=== PATIENT | male | born 1955 | race Caucasian/White ===

== ENCOUNTER 2017-08-30 08:00 | Day surgery (SDC) | payer BC, OTHER ==
[2017-08-25 23:22] VITALS: BMI 36.1
[~2017-08-30 08:00] MED LIST: ALPRAZolam 0.25 MG TAB PO PRN; ASPIRIN 325 MG TAB PO ONE; SODIUM CHLORIDE 0.9% 1,000 ML in EMPTY BAG 1 BAG IV ONE
[2017-08-30 08:27] VITALS: TEMP 97.8
[2017-08-30] MEDS ORDERED: diphenhydrAMINE 50 MG/ML 1 ML VIAL IVP ONE (09:03)
[2017-08-30] MEDS ORDERED: MIDAZOLAM 2 MG/2 ML VIAL IV ONE (09:05)
[2017-08-30] MEDS ORDERED: LIDOCAINE 2% INJ 20 MG/ML SQ ONE ×2 (09:07)
[2017-08-30] MEDS ORDERED: fentaNYL (PF) 50 MCG/ML 2 ML AMP IV ONE (09:09)
[2017-08-30] MEDS ORDERED: IOHEXOL 350 MG/ML 125ML BOTTLE INJ ONE (09:24)
[2017-08-30] MEDS ORDERED: RX INFO: IV CONTRAST WAS GIVEN 1 EACH MISC MISCELLANE PRN (09:32)
[2017-08-30] MEDS ORDERED: SODIUM CHLORIDE 0.9% 1,000 ML IV SCH (09:45)
[2017-08-30 12:41] VITALS: BP 130/70; PULSE 64; RESP 18
--- NOTE | 2017-08-30 14:31 | CC ---
CARDIAC CATHETERIZATION REPORT DATE OF SERVICE: 08/30/2017. INDICATION: Exertional shortness of breath with new onset ischemic cardiomyopathy. PROCEDURE NOTE: After obtaining informed consent, left heart catheterization and coronary angiogram were performed via the right femoral artery using standard [place] catheters. The patient tolerated the procedure well without any obvious immediate complications. SEDATION: Patient received moderate conscious sedation. Total sedation time was 18 minutes. Patient underwent a femoral angiogram and Angio-Seal was deployed for hemostasis. FINDINGS: HEMODYNAMICS: Left ventricular central aortic pressure is normal at 130/78. AORTOGRAM: 1. Aortogram was performed to evaluate the prosthetic valve. Ascending aorta appears aneurysmally dilated without any evidence of aortic regurgitation or prosthetic valve dysfunction. ANGIOGRAPHIC DATA: 1. Left main coronary artery: Left main coronary artery is a normal-sized vessel and is free of stenosis. Divides into left anterior descending coronary artery and circumflex coronary artery. 2. LAD and its branches, circumflex coronary artery and its branches are free of significant stenosis. 3. Right coronary artery is a large dominant vessel and is free of significant disease. CONCLUSIONS: 1. Normal coronary arteries. 2. Normally functioning prosthetic valve. 3. Mild ascending aortic aneurysm. PLAN: The patient's management is going to be with medical therapy. The patient's shortness of breath is probably noncardiac in origin. I reviewed angiographic data with the patient. MMODL / IJN: [id number] /
== END 2017-08-30 14:30 | disposition home or self-care (01) ==
LOC: CATHCVL 08:00
PROVIDERS: ATTEND Internal Medicine Cardiovascular Disease
DX: I71.2 Thoracic aortic aneurysm, without rupture (principal); R06.02 Shortness of breath; I11.9 Hypertensive heart disease without heart failure; I25.5 Ischemic cardiomyopathy; I44.2 Atrioventricular block, complete; Z95.0 Presence of cardiac pacemaker; Z95.2 Presence of prosthetic heart valve; E78.5 Hyperlipidemia, unspecified; Z79.82 Long term (current) use of aspirin; Z79.899 Other long term (current) drug therapy
CPT/HCPCS: 93454; 93567; C1760; C1894; C1769; J2001; J2250; J1200; J3010; Q9967

== ENCOUNTER → 2017-12-20 | Outpatient (CLI) | payer OTHER ==
--- NOTE | 2017-12-20 15:40 | CT ---
EXAMINATION TYPE: CT chest w con DATE OF EXAM: 12/20/2017 COMPARISON: CTA aorta November 11, 2011 HISTORY: SOB that is worsening CT DLP: 618.8 mGycm Automated exposure control for dose reduction was used. CONTRAST: CT scan of the chest is performed with IV Contrast, patient injected with 100 mL of Isovue 300. FINDINGS: LUNGS: There is moderate emphysematous change with blebs and bulla in the apices as well as left apic al scarring all redemonstrated. No suspicious new consolidation or groundglass opacity is seen. No mc spicious new parenchymal nodule or mass is present. No pleural effusion or pneumothorax is identified bilaterally. MEDIASTINUM: There are no greater than 1 cm hilar or mediastinal lymph nodes. No cardiomegaly or pe ricardial effusion is seen. There is dual lead pacemaker now identified. No overlying sternal wires are present. Ascending aorta measures up to 4.0 cm in diameter not significantly changed from prior. OTHER: Visualized liver is low dense consistent with fatty infiltration. There is mild multilevel sp urring in the spine. Bilateral gynecomastia is redemonstrated. IMPRESSION: Moderate emphysematous change without acute pulmonary process. Stable 4.0 cm mild aneury sm of ascending aorta.
== END | disposition home or self-care (01) ==
LOC: RADCTMAIN 14:57
PROVIDERS: ATTEND Internal Medicine
DX: J43.9 Emphysema, unspecified (principal); I71.2 Thoracic aortic aneurysm, without rupture
CPT/HCPCS: 71260; Q9967

== ENCOUNTER 2019-04-18 12:26 | Emergency (ER) | payer OTHER ==
[2019-04-18] MEDS ORDERED: methylPREDNISolone SOD SUCCI 125 MG/2 ML VIAL IV STA (12:39)
[2019-04-18] MEDS ORDERED: FAMOTIDINE 20 MG/2 ML VIAL IV STA (12:40)
[2019-04-18 12:42] VITALS: TEMP 97.4
--- NOTE | 2019-04-18 12:48 | ED ---
General Adult HPI - General Stated complaint: Allergic reaction Time Seen by Provider: 04/18/19 12:26 Source: RN notes reviewed - History of Present Illness Initial comments: This is a 63-year-old male who presents to the emergency department stating that about an hour ago he got stung by a bee and he started having some difficulty breathing and became flushed and felt lightheaded. Patient states he believes he also was hyperventilating at that time. When EMS arrived they stated that the patient was flushed and they gave him albuterol and Atrovent as well as 50 of Benadryl and the symptoms have improved. Patient states she still mildly short of breath. Patient denies any chest pain or palpitations. Patient states she's never had a reaction to a bee sting in the past - Related Data Home Medications Medication Instructions Recorded Confirmed Aspirin 81 mg PO DAILY 12/29/13 04/18/19 amLODIPine BESYLATE [Norvasc] 10 mg PO DAILY 12/29/13 04/18/19 Lisinopril [Zestril] 20 mg PO DAILY 08/25/17 04/18/19 cloNIDine HCL [Catapres] 0.1 mg PO DAILY 08/25/17 04/18/19 Previous Rx's Medication Instructions Recorded EPINEPHrine (Auto Inject) [Epipen] 0.3 mg IM ONCE PRN #2 syringe 04/18/19 predniSONE 40 mg PO DAILY #8 tab 04/18/19 Allergies Allergy/AdvReac Type Severity Reaction Status Date / Time No Known Allergies Allergy Verified 04/18/19 12:49 Review of Systems ROS Statement: Those systems with pertinent positive or pertinent negative responses have been documented in the HPI. ROS Other: All systems not noted in ROS Statement are negative. Past Medical History Past Medical History: Hypertension History of Any Multi-Drug Resistant Organisms: None Reported Past Surgical History: Cardiac Valve Replacement, Pacemaker Past Anesthesia/Blood Transfusion Reactions: No Reported Reaction Type of Cardiac Device: Permanent Pacemaker Device Placement Date:: 2011 Smoking Status: Former smoker - Past Family History Mother Family Medical History: No Reported History General Exam - General Exam Comments Initial Comments: GENERAL: Patient is well-developed and well-nourished. Patient is nontoxic and well- hydrated and is in moderate distress. ENT: Neck is soft and supple. No significant lymphadenopathy is noted. Oropharynx is clear. Moist mucous membranes. Neck has full range of motion without eliciting any pain. EYES: The sclera were anicteric and conjunctiva were pink and moist. Extraocular movements were intact and pupils were equal round and reactive to light. Eyelids were unremarkable. PULMONARY: Unlabored respirations. Good breath sounds bilaterally. No audible rales rhonchi or wheezing was noted. CARDIOVASCULAR: There is a regular rate and rhythm without any murmurs gallops or rubs. ABDOMEN: Soft and nontender with normal bowel sounds. No palpable organomegaly was noted. There is no palpable pulsatile mass. SKIN: She has hives on his chest arms back stomach. Patient also is very erythematous in the face. NEUROLOGIC: Patient is alert and oriented x3. Cranial nerves II through XII are grossly intact. Motor and sensory are also intact. Normal speech, volume and content. Symmetrical smile. MUSCULOSKELETAL: Normal extremities with adequate strength and full range of motion. LYMPHATICS: No significant lymphadenopathy is noted PSYCHIATRIC: Normal psychiatric evaluation. Course Vital Signs 04/18/19 04/18/19 04/18/19 12:35 12:38 13:00 Temperature 97.4 F L Pulse Rate 79 77 Respiratory 20 23 Rate Blood Pressure 103/53 103/53 O2 Sat by Pulse 94 L 96 96 Oximetry 04/18/19 04/18/19 04/18/19 13:30 14:00 14:09 Temperature Pulse Rate 72 71 71 Respiratory 11 L 17 17 Rate Blood Pressure 110/69 99/64 99/64 O2 Sat by Pulse 96 93 L 93 L Oximetry Medical Decision Making - Medical Decision Making I will back into reevaluate the patient he was asymptomatic at this time. Patient wanted to go home. I discharge the patient home with EpiPen's and steroids and he will take Benadryl when necessary Disposition Clinical Impression: Anaphylaxis Disposition: HOME SELF-CARE Condition: Good Instructions (If sedation given, give patient instructions): Anaphylaxis (ED) Prescriptions: EPINEPHrine (Auto Inject) [Epipen] 0.3 mg IM ONCE PRN #2 syringe PRN Reason: Difficulty breathing predniSONE 40 mg PO DAILY #8 tab Is patient prescribed a controlled substance at d/c from ED?: No Referrals: Kati Harrison MD [Primary Care Provider] - 1-2 days Time of Disposition: 15:54
[2019-04-18 16:09] VITALS: BP 110/74; PULSE 67; RESP 12
== END 2019-04-18 16:30 | disposition home or self-care (01) ==
LOC: EC 12:26
DX: T63.441A Toxic effect of venom of bees, accidental (unintentional), initial encounter (principal); T78.2XXA Anaphylactic shock, unspecified, initial encounter; I10 Essential (primary) hypertension; Z87.891 Personal history of nicotine dependence; Z79.82 Long term (current) use of aspirin; Z79.899 Other long term (current) drug therapy; Z95.0 Presence of cardiac pacemaker; Z95.2 Presence of prosthetic heart valve
CPT/HCPCS: 99284; 96374; 96375; J2930

== ENCOUNTER 2025-03-04 11:16 | Inpatient (IN) | payer MEDICARE, OTHER ==
[2025-03-04] MEDS: MIDAZOLAM 1 MG/ML 5 ML VIAL IV STA (11:18)
[2025-03-04] MEDS: DEXTROSE 5% IN WATER 100 ML with AMIODARONE 150 MG IV ONE ×2 (11:30→13:03)
[2025-03-04] MEDS: SODIUM CHLORIDE 0.9% 500 ML 500 ML IV STA (11:35)
[2025-03-04] MEDS: LORazepam 1 MG/0.5 ML VIAL IV STA (11:37)
[2025-03-04] MEDS: SUCCINYLCHOLINE CHLORIDE 200 MG/10 ML VIAL IV STA (11:38)
--- NOTE | 2025-03-04 11:41 | XR ---
EXAMINATION TYPE: XR chest 1V portable DATE OF EXAM: 03/04/2025 COMPARISON: NONE CLINICAL INDICATION: Male, 89 years old with history of chest pain; TECHNIQUE: Single frontal view of the chest is obtained. FINDINGS: Limited by the technique. ET tube is 5.3 cm above the karen. There has been prior CABG surgery. There is a 2-lead cardiac pacemaker. The lungs are grossly clear. There is no large pleural effusion or pneumothorax. IMPRESSION: 1. ET tube 5.3 cm above the karen. 2. No definite acute cardiopulmonary process. [facility], , 03/04/2025 11:39 AM
[2025-03-04] MEDS: SODIUM CHLORIDE 0.9% 1,000 ML IV ONE (11:48)
[2025-03-04 11:58] LABS: HCT 44.5 % (39.6-50.0); HGB 15.3 g/dL (13.0-17.0); MCH 35.9 pg (27.0-32.0); MCHC 34.4 g/dL (32.0-37.0); MCV 104.5 fL (80.0-97.0); Platelet Count 161 10*3/uL (140-440); RBC 4.26 10*6/uL (4.40-5.60); RDW 12.0 % (11.5-14.5); WBC 21.20 10*3/uL (4.50-10.00)
[2025-03-04 12:10] LABS: AST 178 U/L (17-59); African American GFR (CKD) >90 (>60 ml/min/1.73 sqM); Albumin 3.6 g/dL (3.5-5.0); Alkaline Phosphatase 125 U/L (38-126); Anion Gap 29 mmol/L; Blood Urea Nitrogen 11 mg/dL (9-20); Calcium 8.4 mg/dL (8.4-10.2); Chloride 105 mmol/L (98-107); Glucose 403 mg/dL (74-99); Magnesium 1.8 mg/dL (1.6-2.3); Non-African American GFR(CKD) 85 (>60 ml/min/1.73 sqM); Potassium 3.4 mmol/L (3.5-5.1); Sodium 142 mmol/L (137-145); Total Protein 6.4 g/dL (6.3-8.2)
[2025-03-04 12:17] LABS: ABG HCO3 13 mmol/L (21-25); ABG PCO2 38 mmHg (35-45); ABG PO2 231 mmHg (83-108); ABG TCO2 14 mmol/L (19-24); Allen Test Performed? Yes
[2025-03-04 12:18] LABS: INR 1.4 (<1.2); Prothrombin Time 14.4 sec (10.0-12.5)
--- NOTE | 2025-03-04 12:18 | CT ---
EXAMINATION TYPE: CT brain katey wo con DATE OF EXAM: 03/04/2025 COMPARISON: CT brain dated 12/29/2013 CLINICAL INDICATION: Male, 69 years old with history of Trauma; PHH, Cardiac arrest, with fall and hi t head. TECHNIQUE: CT scan of the head and cervical spine are performed without contrast. CT DLP: 2497.[address] CTDI: mGy Automated exposure control for dose reduction was used. Findings: Head CT: Ventricles, basal cisterns and sulci over convexities are mildly enlarged consistent with mild atroph y. No abnormal density is seen throughout the brain parenchyma and there is no acute intra or extra-a xial hemorrhage. Posterior fossa including the brainstem, fourth ventricle and cerebellar pontine angles are grossly n ormal. The intraorbital contents appear normal and symmetric. Visualized paranasal sinuses are well aerated. CT cervical spine: Craniovertebral junction relationships and prevertebral soft tissues are normal. The cervical vertebral segments are normal in height and alignment and there is no fracture subluxati on. Degenerative disc disease at the C3-4, C4-5, C5-6 there is mild disc space narrowing and spondylosis at the C3-C4 level. There is moderate disc space narrowing and marked spondylosis at the C3 C4-5, C5- 6 and C6-7 levels. Mild facet degeneration and degeneration of the uncovertebral joints in the mid and lower cervical sp ine. There is no bony encroachment of the cervical canal. The paraspinal soft tissues unremarkable. IMPRESSION: 1. Head CT: No acute bleed or mass effect. Mild generalized atrophy. 2. CT cervical spine: No acute trauma. Mild to moderate multilevel degenerative disc disease. [facility], , 03/04/2025 12:15 PM
--- NOTE | 2025-03-04 12:23 | CT ---
EXAMINATION TYPE: CT chest angio for PE DATE OF EXAM: 03/04/2025 COMPARISON: CT chest dated 12/20/2017 CLINICAL INDICATION: Male, 69 years old with history of Cardiac arrest; PHH, Cardiac arrest, with fal l and hit head., SOB or PAIN TECHNIQUE: Ct angiogram of the chest performed with with IV Contrast, patient injected with 100ml mL of Isovue 3 70. MIP images are created and reviewed. CT DLP: 2497.[address] CTDI: mGy Automated exposure control for dose reduction was used. FINDINGS: The exam is limited by motion. There is a 2-lead cardiac pacemaker. There is a prosthetic aortic valve. There are moderate emphysematous changes with an upper lobe predominance. There is diffuse groundglass opacity in both lungs, greatest in the upper lobes, likely pulmonary matt ma. There is consolidative opacity in the posterior lungs likely secondary to pulmonary edema or atel ectasis. There is no mediastinal, hilar or axillary adenopathy. Limited scanning through the upper abdomen reveals cholelithiasis. There are no focal osseous lesions. IMPRESSION: 1. Limited by motion artifact. 2. No definite evidence of pulmonary medicine. 3. Findings most consistent with CHF. 4. Cholelithiasis 5. Moderate emphysematous changes. [facility], , 03/04/2025 12:21 PM
[2025-03-04 12:25] LABS: ABG PH 7.14 (7.35-7.45)
[2025-03-04] MEDS: AMIODARONE 450 MG in DEXTROSE 5% IN WATER 250 ML IV SCH (12:36)
[2025-03-04 12:40] LABS: Partial Thromboplastin Time 20.6 sec (22.0-30.0)
[2025-03-04 12:42] LABS: Eosinophils # (M) 0.21 k/uL (0-0.7); Lymphocytes # (M) 8.06 k/uL (1.0-4.8); Monocytes # (M) 0.64 k/uL (0-1.0); Neutrophils # (M) 12.30 k/uL (1.3-7.7); Neutrophils % (M) 58 %; Total Cells Counted 100
[2025-03-04 12:52] LABS: ALT 73 U/L (4-49); Carbon Dioxide 8 mmol/L (22-30)
--- NOTE | 2025-03-04 12:57 | ED ---
General Adult HPI - General Chief complaint: Cardiac Arrest/CPR Stated complaint: Cardiac Arrest Time Seen by Provider: 03/04/25 11:16 Source: patient, EMS, RN notes reviewed, old records reviewed Mode of arrival: EMS - History of Present Illness Initial comments: This is a 69-year-old male who was a witnessed arrest. Patient was with EMS taking EMS to another patient who had fallen and in the process of doing that the patient collapsed they noted the patient to be in V-fib shocked him 3 different occasions gave him 3 rounds of epi gave him amiodarone and intubated the patient. Just prior to arrival they got ROSC he was down for at least 20 minutes. Patient extubated himself prior to coming into the emergency department but he was unresponsive. Patient has a cardiac history and has had bypass. No other history is available at this time. - Related Data Allergies Allergy/AdvReac Type Severity Reaction Status Date / Time bee venom protein (honey bee) Allergy Unknown Verified 03/04/25 13:00 Review of Systems ROS Statement: Those systems with pertinent positive or pertinent negative responses have been documented in the HPI. ROS Other: All systems not noted in ROS Statement are negative. Past Medical History Past Medical History: Unable to Obtain Past Surgical History: Unable to Obtain General Exam - General Exam Comments Initial Comments: GENERAL: Patient is thrashing but does look well-developed and not malnourished ENT: Neck is soft and supple. No significant lymphadenopathy is noted. Oropharynx is clear. Moist mucous membranes. Neck has full range of motion without eliciting any pain. EYES: The sclera were anicteric and conjunctiva were pink and moist. Extraocular movements were intact and pupils were equal round and reactive to light. Eyelids were unremarkable. PULMONARY: Unlabored respirations. Good breath sounds bilaterally. No audible rales rhonchi or wheezing was noted. CARDIOVASCULAR: There is a regular rate and rhythm without any murmurs gallops or rubs. ABDOMEN: Soft and nontender with normal bowel sounds. SKIN: Skin is clear with no lesions or rashes and otherwise unremarkable. NEUROLOGIC: Patient is unresponsive. MUSCULOSKELETAL: Normal extremities with adequate strength and full range of motion. PSYCHIATRIC: Unable to assess Course Vital Signs 03/04/25 03/04/25 03/04/25 11:20 11:31 11:35 Temperature 97.8 F Pulse Rate 49 L 49 L Respiratory 20 22 Rate Blood Pressure 100/60 94/58 O2 Sat by Pulse 93 L 87 L Oximetry Fraction of 100 Inspired Oxygen (FIO2) 03/04/25 03/04/25 03/04/25 11:44 11:50 12:05 Temperature Pulse Rate 50 L 49 L Respiratory 31 H 28 H Rate Blood Pressure 104/66 120/75 135/9 O2 Sat by Pulse 100 100 Oximetry Fraction of Inspired Oxygen (FIO2) 03/04/25 03/04/25 03/04/25 12:15 12:26 12:28 Temperature Pulse Rate 49 L Respiratory 27 H Rate Blood Pressure 155/81 O2 Sat by Pulse 100 Oximetry Fraction of 50 50 Inspired Oxygen (FIO2) 03/04/25 03/04/25 03/04/25 12:42 12:50 13:00 Temperature Pulse Rate 49 L 50 L 52 L Respiratory 30 H 30 H 34 H Rate Blood Pressure 106/60 137/74 130/69 O2 Sat by Pulse 95 96 96 Oximetry Fraction of Inspired Oxygen (FIO2) Procedures - [place] Protocol (Time Out) Nurse: Sofía Rodriguez - Intubation Sedative: Versed Paralytic: Succinylcholine Laryngoscope: Mcgarry Size: 4 Tube Secured Location: teeth Tube Placement Confirmation: visualized tube passing through cords, equal breath sounds bilaterally, no breath sounds over epigastrium, confirmation by capnometry Patient Tolerated Procedure: well Intubation Complications: none Medical Decision Making - Medical Decision Making EKG is interpreted by myself. EKG shows a paced rhythm at 50 bpm QRS is 205 QT interval is 481 QTc is 453 Was pt. sent in by a medical professional or institution (, LEEANNE, CLINICAL DATA PROGRAMMER, urgent care, hospital, or fdc...) When possible be specific @ -No Did you speak to anyone other than the patient for history (EMS, parent, family, police, friend...)? What history was obtained from this source @ -No Did you review nursing and triage notes (agree or disagree)? Why? @ -I reviewed and agree with nursing and triage notes Were old charts reviewed (outside hosp., previous admission, EMS record, old EKG, old radiological studies, urgent care reports/EKG's, fdc records)? Report findings @ -No old charts were reviewed Differential Diagnosis? @ -V-fib, [place], pulmonary embolism, aortic dissection, this is not an all- inclusive list EKG interpreted by me (3pts min.). @ -As above X-rays interpreted by me (1pt min.). @ -Chest x-ray shows good placement of the ET tube. CT interpreted by me (1pt min.). @ -CT of the head and neck and chest showed no acute abnormality U/S interpreted by me (1pt. min.). @ -None done What testing was considered but not performed or refused? (CT, X-rays, U/S, labs)? Why? @ -None What meds were considered but not given or refused? Why? @ -None Did you discuss the management of the patient with other professionals (pr ofessionals i.e. DrMelita, PA, CLINICAL DATA PROGRAMMER, lab, RT, psych nurse, executive secretary social welfare, geosciences professor, teacher, ski patrol officer, case manager specialist)? Give summary @ -I spoke with Dr. Mays and he accepted the patient to the ICU. I spoke with the significant hospitalist and they agreed to accept the patient. Dr. Malcolm was contacted and he came down and saw the patient and discussed the case with myself. Was smoking cessation discussed for >3mins.? @ -No Was critical care preformed (if so, how long)? @ -35 minutes Were there social determinants of health that impacted care today? How? (Homelessness, low income, unemployed, alcoholism, drug addiction, transportation, low edu. Level, literacy, decrease access to med. care, [place] [facility], rehab)? @ -No Was there de-escalation of care discussed even if they declined (Discuss DNR or withdrawal of care, Hospice)? DNR status @ -No What co-morbidities impacted this encounter? (DM, HTN, Smoking, COPD, CAD, Cancer, CVA, ARF, Chemo, Hep., AIDS, mental health diagnosis, sleep apnea, morbid obesity)? @ -None Was patient admitted / discharged? Hospital course, mention meds given and route, prescriptions, significant lab abnormalities, going to OR and other pertinent info. @ -Patient asked us bated himself just prior to arrival so I intubated the patient with an 8 oh ET tube patient had good bilateral breath sounds and capnography was good. Patient's came back acidotic with a bicarb of 8 patient also an elevated troponin. Patient had an EEG bedside ultrasound done by Dr. Malcolm and he felt that ejection fraction was between 10 to 15% patient will be admitted to the ICU to [facility] with a consult to critical care doctor and cardiology Undiagnosed new problem with uncertain prognosis? @ -No Drug Therapy requiring intensive monitoring for toxicity (Heparin, Nitro, Insulin, Cardizem)? @ -No Were any procedures done? @ -No Diagnosis/symptom? @ -Ventricular fibrillation Acute, or Chronic, or Acute on Chronic? @ -Acute Uncomplicated (without systemic symptoms) or Complicated (systemic symptoms)? @ -Complicated Side effects of treatment? @ -No Exacerbation, Progression, or Severe Exacerbation? @ -No Poses a threat to life or bodily function? How? (Chest pain, [place], [place], pneumonia, PE, COPD, DKA, ARF, appy, cholecystitis, CVA, Diverticulitis, Homicidal, Suicid al, threat to staff... and all critical care pts) @ -Yes this could lead to poor perfusion and endorgan dysfunction Diagnosis/symptom? @ -NSTEMI Acute, or Chronic, or Acute on Chronic? @ -Acute Uncomplicated (without systemic symptoms) or Complicated (systemic symptoms)? @ -Complicated Side effects of treatment? @ -None Exacerbation, Progression, or Severe Exacerbation] @ -No Poses a threat to life or bodily function? @ -Yes this can lead to an [place] poor perfusion and endorgan dysfunction - Lab Data Result diagrams: 03/04/25 11:41 03/04/25 11:41 Lab Results 03/04/25 03/04/25 03/04/25 Range/Units 11:41 11:41 11:41 WBC 21.20 H (4.50-10.00) 10*3/uL RBC 4.26 L (4.40-5.60) 10*6/uL Hgb 15.3 (13.0-17.0) g/dL Hct 44.5 (39.6-50.0) % MCV 104.5 H (80.0-97.0) fL MCH 35.9 H (27.0-32.0) pg MCHC 34.4 (32.0-37.0) g/dL Plt Count 161 (140-440) 10*3/uL MPV 10.6 (9.5-12.2) fL Immature Gran % (Auto) 2.6 % Neutrophils % (Manual) 58 % Lymphocytes % (Manual) 38 % Monocytes % (Manual) 3 % Eosinophils % (Manual) 1 % Immature Gran # 0.56 H (0.00-0.04) 10*3/uL Neutrophils # (Manual) 12.30 H (1.3-7.7) k/uL Lymphocytes # (Manual) 8.06 H (1.0-4.8) k/uL Monocytes # (Manual) 0.64 (0-1.0) k/uL Eosinophils # (Manual) 0.21 (0-0.7) k/uL Nucleated RBCs 0 (0-0) /100 WBC Manual Slide Review Performed PT 14.4 H (10.0-12.5) sec INR 1.4 H (<1.2) APTT 20.6 L (22.0-30.0) sec Sample Site ABG pH (7.35-7.45) ABG pCO2 (35-45) mmHg ABG pO2 (83-108) mmHg ABG HCO3 (21-25) mmol/L ABG Total CO2 (19-24) mmol/L ABG O2 Saturation (94-97) % ABG Base Excess mmol/L Joseph Test Hemoglobin (13.0-17.5) gm/dL FiO2 % Sodium 142 (137-145) mmol/L Potassium 3.4 L (3.5-5.1) mmol/L Chloride 105 (98-107) mmol/L Carbon Dioxide 8 L* (22-30) mmol/L Anion Gap 29 mmol/L BUN 11 (9-20) mg/dL Creatinine 0.93 (0.66-1.25) mg/dL Est GFR (CKD-EPI)AfAm >90 (>60 ml/min/1.73 sqM) Est GFR (CKD-EPI)NonAf 85 (>60 ml/min/1.73 sqM) Glucose 403 H (74-99) mg/dL Calcium 8.4 (8.4-10.2) mg/dL Magnesium 1.8 (1.6-2.3) mg/dL Total Bilirubin 1.3 (0.2-1.3) mg/dL AST 178 H (17-59) U/L ALT 73 H (4-49) U/L Alkaline Phosphatase 125 (38-126) U/L Troponin I (0.000-0.034) ng/mL Total Protein 6.4 (6.3-8.2) g/dL Albumin 3.6 (3.5-5.0) g/dL 03/04/25 03/04/25 Range/Units 11:41 12:13 WBC (4.50-10.00) 10*3/uL RBC (4.40-5.60) 10*6/uL Hgb (13.0-17.0) g/dL Hct (39.6-50.0) % MCV (80.0-97.0) fL MCH (27.0-32.0) pg MCHC (32.0-37.0) g/dL Plt Count (140-440) 10*3/uL MPV (9.5-12.2) fL Immature Gran % (Auto) % Neutrophils % (Manual) % Lymphocytes % (Manual) % Monocytes % (Manual) % Eosinophils % (Manual) % Immature Gran # (0.00-0.04) 10*3/uL Neutrophils # (Manual) (1.3-7.7) k/uL Lymphocytes # (Manual) (1.0-4.8) k/uL Monocytes # (Manual) (0-1.0) k/uL Eosinophils # (Manual) (0-0.7) k/uL Nucleated RBCs (0-0) /100 WBC Manual Slide Review PT (10.0-12.5) sec INR (<1.2) APTT (22.0-30.0) sec Sample Site RAD ABG pH 7.14 L* (7.35-7.45) ABG pCO2 38 (35-45) mmHg ABG pO2 231 H (83-108) mmHg ABG HCO3 13 L (21-25) mmol/L ABG Total CO2 14 L (19-24) mmol/L ABG O2 Saturation 99.4 H (94-97) % ABG Base Excess -15.6 mmol/L Joseph Test Yes Hemoglobin 14.5 (13.0-17.5) gm/dL FiO2 100 % Sodium (137-145) mmol/L Potassium (3.5-5.1) mmol/L Chloride (98-107) mmol/L Carbon Dioxide (22-30) mmol/L Anion Gap mmol/L BUN (9-20) mg/dL Creatinine (0.66-1.25) mg/dL Est GFR (CKD-EPI)AfAm (>60 ml/min/1.73 sqM) Est GFR (CKD-EPI)NonAf (>60 ml/min/1.73 sqM) Glucose (74-99) mg/dL Calcium (8.4-10.2) mg/dL Magnesium (1.6-2.3) mg/dL Total Bilirubin (0.2-1.3) mg/dL AST (17-59) U/L ALT (4-49) U/L Alkaline Phosphatase (38-126) U/L Troponin I 1.250 H* (0.000-0.034) ng/mL Total Protein (6.3-8.2) g/dL Albumin (3.5-5.0) g/dL Critical Care Time Critical Care Time: Yes Total Critical Care Time: 35 Disposition Clinical Impression: Ventricular fibrillation, NSTEMI (non-ST elevated myocardial infarction), Cardiac arrest Disposition: ADMITTED IP TO THIS HOSP Referrals: Kati Harrison MD [Primary Care Provider] - 1-2 days Time of Disposition: 13:14
[2025-03-04] MEDS: AMIODARONE 360 MG in DEXTROSE 5% IN WATER 200 ML IV ONE (13:03)
--- NOTE | 2025-03-04 13:05 | XR ---
EXAMINATION TYPE: XR chest 1V portable DATE OF EXAM: 03/04/2025 COMPARISON: 06/04/2025 CLINICAL INDICATION: Male, 69 years old with history of confirm OG placement; TECHNIQUE: Single frontal view of the chest is obtained. FINDINGS: There is an NG tube within the stomach. Placement of ET tube cannot be determined this technique but appears to be well above the karen. A CABG surgery. There is a 2-lead cardiac pacemaker. There is mild diffuse interstitial opacity likely indicating pulmonary vascular congestion and mild e antoni. There is no pleural effusion. There is no pneumothorax. IMPRESSION: 1. NG tube within the stomach. 2. Mild pulmonary vascular congestion and interstitial edema. 3. ET tube placement not determined with this technique but is well above the karen. [facility], , 03/04/2025 1:03 PM
[2025-03-04] MEDS ORDERED: NALOXONE 0.4 MG/ML 1 ML VIAL IV PRN (13:14)
[2025-03-04 13:59] LABS: Glucose,Whole Blood 429 mg/dL (70-110)
[2025-03-04 14:14] LABS: Glucose,Whole Blood 414 mg/dL (70-110)
[2025-03-04] MEDS ORDERED: Magnesium Replacement Protocol 1 EACH MISC MISCELLANE PRN (14:30)
[2025-03-04] MEDS ORDERED: Potassium Replacement Protocol 1 EACH MISC MISCELLANE PRN (14:30)
[2025-03-04] MEDS ORDERED: DEXTROSE 50% SYRINGE 50 ML IVP PRN ×2 (14:59)
[2025-03-04] MEDS: MAGNESIUM SULFATE-D5W PMX 1 GM in DEXTROSE/WATER 1 100ML.BAG IVPB ONE (15:06)
[2025-03-04] MEDS: POTASSIUM BICARBONATE/CIT AC 20 MEQ TABLET.EFF NG-TUBE SCH (15:06)
[2025-03-04] MEDS: INSULIN LISPRO (HumaLOG) 100 UNIT/ML 10 mL VL SQ ONE (15:26)
--- NOTE | 2025-03-04 16:44 | US ---
EXAMINATION TYPE: US abdomen limited DATE OF EXAM: 03/04/2025 COMPARISON: NONE CLINICAL INDICATION: Male, 69 years old with history of Elevated LFTs; elevated LFT's ICU patient on vent, unable to move or obtain hx TECHNIQUE: Grayscale and color Doppler imaging of the right upper quadrant was performed. FINDINGS: EXAM MEASUREMENTS: Liver Length: 18.9 cm Gallbladder Wall: 0.24 cm CBD: 0.46 cm Right Kidney: 12.1 x 7.6 x 6.5 cm [employer] NOTES: Pancreas: parts seen appear wnl Liver: heterogeneous and enlarged , no masses or dilated ducts. Gallbladder: a few gallstones seen near neck of GB Evidence for sonographic Rowland's sign: Unable to assess CBD: wnl Right Kidney: wnl IMPRESSION: 1. Hepatic steatosis with hepatomegaly. 2. Cholelithiasis. [facility], , 03/04/2025 4:42 PM
[2025-03-04] MEDS: NOREPINEPHRINE 8 MG in SODIUM CHLORIDE 0.9% 250 ML IV SCH (18:02)
[2025-03-04 18:20] LABS: Glucose,Whole Blood 365 mg/dL (70-110)
[2025-03-04 18:22] LABS: ABG HCO3 20 mmol/L (21-25); ABG PCO2 37 mmHg (35-45); ABG PH 7.34 (7.35-7.45); ABG TCO2 21 mmol/L (19-24); Allen Test Performed? Yes
[2025-03-04 18:25] LABS: ABG PO2 52 mmHg (83-108)
[2025-03-04] MEDS: INSULIN LISPRO (HumaLOG) 100 UNIT/ML 10 mL VL SQ SCH (18:33)
[2025-03-04] MEDS: CHLORHEXIDINE GLUCONATE 15 ML CUP MUCOUS MEM SCH (22:30)
--- NOTE | 2025-03-04 22:51 | P.CRDCN ---
History of Present Illness Consult date: 03/04/25 History of present illness: HISTORY OF PRESENTING ILLNESS: History is very limited. Most obtained from the medical chart as there is no bystander to provide any further history. Patient is intubated prior to the evaluation. Cardiology was paged for [id number] cardiac arrest evaluation. Patient arrived to the hospital around 11:30 AM. 69-year-old with past medical history of CABG, PPM, unknown if follows up with cardiology, appears to have poor personal hygiene seems like a noncompliant patient. Apparently patient was helping another family member at home who had a fall and concerns of hip fracture for which EMS was called in. Patient was helping the E MS and the patient at home when he suddenly collapsed. EMS evaluated him at the scene and he was found to be in V-fib shock. He was given 3 3 shocks and 3 rounds of epi with amiodarone and was intubated on the scene. IntraOp to the hospital because of patient's movement he extubated himself and he was reintubated in the ER. In the ER he was evaluated promptly and he was noticed to be hypoxic, cold extremities, mottling appearance of skin, acidotic, BP 100/60 paced rhythm, heart rate in 50s, EKG did not show any acute ischemic changes however difficult to read because of paced rhythm. Home medication amlodipine 10, Lipitor 20, lisinopril 10 mg ........................................... ................................................................................ ................... Pertient Vitals: 100/60, heart rate 50 bpm Pertient Labs: Hb 15, WBC 21, sodium 142, potassium 3.8, magnesium 1.8, bicarb 8, BUN 11, creatinine 0.9, EKG: EKG post ROSC shows sinus rhythm with ventricularly paced rhythm Pertient Imaging: Chest x-ray showed mild bilateral fluffy infiltrate suggestive of mild fluid overload. Prior CABG, PPM. CTA chest Motion artifact no definitive PE, mild pulmonary congestion/show CHF, cholelithiasis moderate emphysema ....................................... ................................................................................ ....................... REVIEW OF SYSTEMS: 14 point review of system is negative except what is mentioned above in HPI. ................................................................................ .............................................................. PHYSICAL EXAMINATION: Neck: Brisk carotid upstroke Lungs: ET tube in place, crackles and rhonchi audible Heart: Regular rate and rhythm, S1-S2, mild systolic murmur audible Abdomen: Hypoactive bowel sounds Extremities: 1+ pitting edema bilateral extremity Neuro: On sedation with propofol. Detailed neuro exam was not performed. ........................... ................................................................................ ................................... ASSESSMENT: # [id number] cardiac arrest with ventricular fibrillation, prolonged downtime of around 15 minutes. 3 rounds of epi and ACLS protocol # Ventilator dependent respiratory failure # Prior history of CABG # Prior history of ischemic cardiomyopathy # Status post PPM # Obesity PLAN: PPM interrogation Aspirin 81 mg, due to concerns of possible dark bloody output from NG tube avoid IV heparin drip Protonix IV 40 twice daily IV amiodarone drip at 0.5 mg daily. Low-dose because of low resting heart rate Supportive ICU care hemodynamic monitoring and pressors as needed for goal MAP 65 mmHg 2D echocardiogram Monitor electrolytes keep potassium at 4 magnesium at 2 Monitor inputs and outputs Overall very prognosis with prolonged downtime with significant hypoxemia, m etabolic acidosis, with high concerns of hypoxic ischemic encephalopathy. Will evaluate the need for heart catheterization based on neurological status and after and hemodynamic stabilization Robson Malcolm MD, FACC, RPVI Past Medical History Past Medical History: Diabetes Mellitus, Hyperlipidemia, Hypertension Additional Past Medical History / Comment(s): type 2 dm, psoriasis History of Any Multi-Drug Resistant Organisms: None Reported Past Surgical History: Cardiac Valve Replacement, Heart Catheterization, Pacemaker Past Anesthesia/Blood Transfusion Reactions: No Reported Reaction Type of Cardiac Device: Permanent Pacemaker, Unknown Device Placement Date:: 2009 Past Psychological History: No Psychological Hx Reported Smoking Status: Former smoker Medications and Allergies Home Medications Medication Instructions Recorded Confirmed Type Atorvastatin [Lipitor] 20 mg PO DAILY 03/04/25 03/04/25 History amLODIPine [Norvasc] 10 mg PO DAILY 03/04/25 03/04/25 History lisinopriL [Zestril] 10 mg PO DAILY 03/04/25 03/04/25 History Allergies Allergy/AdvReac Type Severity Reaction Status Date / Time bee venom protein (honey bee) Allergy Unknown Verified 03/04/25 13:31 Physical Exam Vitals: Vital Signs Temp Pulse Resp BP Pulse Ox FiO2 03/04/25 22:00 49 L 24 97/64 100 03/04/25 21:45 49 L 27 H 102/64 100 03/04/25 21:30 49 L 28 H 99/69 100 03/04/25 21:15 49 L 25 H 96/68 100 03/04/25 21:00 49 L 27 H 106/64 100 03/04/25 20:45 50 L 24 102/61 100 03/04/25 20:30 50 L 25 H 110/62 100 03/04/25 20:15 49 L 24 100/65 100 03/04/25 20:08 50 03/04/25 20:00 97.2 F L 50 L 25 H 99/66 100 50 03/04/25 19:45 50 L 26 H 94/64 100 03/04/25 19:30 50 L 27 H 96/60 100 03/04/25 19:15 50 L 24 98/62 100 03/04/25 19:00 49 L 24 104/54 100 03/04/25 18:45 49 L 24 94/60 99 03/04/25 18:30 49 L 24 91/57 100 03/04/25 18:15 49 L 24 85/55 100 03/04/25 18:00 50 L 24 78/50 100 03/04/25 17:45 49 L 24 74/48 100 03/04/25 17:30 49 L 24 86/51 100 03/04/25 17:15 49 L 24 92/59 100 03/04/25 17:00 49 L 24 87/55 100 03/04/25 16:45 50 L 24 85/58 100 03/04/25 16:30 49 L 24 88/58 100 03/04/25 16:15 49 L 24 93/57 100 03/04/25 16:00 97.4 F L 49 L 24 90/56 100 50 03/04/25 15:45 50 L 24 92/59 100 03/04/25 15:33 50 03/04/25 15:30 49 L 24 98/62 100 03/04/25 15:15 50 L 24 94/60 100 03/04/25 15:00 49 L 24 97/55 100 03/04/25 14:45 50 L 25 H 98/58 100 03/04/25 14:43 50 03/04/25 14:30 49 L 28 H 130/78 100 03/04/25 14:15 97 F L 49 L 32 H 135/75 95 07/13/25 13:45 97.0 F L 50 L 32 H 123/71 97 03/04/25 13:22 50 L 30 H 131/70 96 03/04/25 13:15 97.0 F L 49 L 34 H 135/71 97 03/04/25 13:00 52 L 34 H 130/69 96 03/04/25 12:50 50 L 30 H 137/74 96 03/04/25 12:42 49 L 30 H 106/60 95 03/04/25 12:28 50 03/04/25 12:26 50 03/04/25 12:15 49 L 27 H 155/81 100 03/04/25 12:05 49 L 28 H 135/9 100 03/04/25 11:50 120/75 03/04/25 11:44 50 L 31 H 104/66 100 03/04/25 11:35 100 03/04/25 11:31 49 L 22 94/58 87 L 03/04/25 11:20 97.8 F 49 L 20 100/60 93 L Intake and Output 03/04/25 03/04/25 03/04/25 06:59 14:59 22:59 Intake Total 100.000 509.0 Output Total 10 150 Balance 90.000 359.0 Intake: IV 10 0.9 NS KVO 10 Intake, IV Titration 100.000 389.0 Amount Amiodarone 450 mg In 83.0 Dextrose 5% in Water 250 ml @ 0.5 MG/MIN 16.667 mls/hr IV .Q15H SILAS Rx#: [id number] Magnesium Sulfate-D5w Pmx 100 1 gm In Dextrose/Water 1 100ml.bag @ 100 mls/hr IVPB ONCE ONE Rx#: [id number] Norepinephrine 8 mg In 6 Sodium Chloride 0.9% 250 ml @ 0.03 MCG/KG/MIN 6. 095 mls/hr IV .Q24H SILAS Rx#:[id number] propofoL 1,000 mg In 100.000 200 Empty Bag 1 bag @ 15 MCG/ KG/MIN 9.45 mls/hr IV . [id number] SILAS Rx#:[id number] Other 110 Output: Urine 10 150 Uretheral (Gutierrez) 10 Other: Voiding Method Indwelling Catheter Indwelling Catheter # Bowel Movements 1 Weight 105 kg 105 kg Results 03/04/25 11:41 03/04/25 21:03 Cardiac Enzymes 03/04/25 03/04/25 03/04/25 Range/Units 11:41 11:41 21:03 AST 178 H (17-59) U/L Troponin I 1.250 H* 52.100 H* (0.000-0.034) ng/mL Coagulation 03/04/25 Range/Units 11:41 PT 14.4 H (10.0-12.5) sec APTT 20.6 L (22.0-30.0) sec CBC 03/04/25 Range/Units 11:41 WBC 21.20 H (4.50-10.00) 10*3/uL RBC 4.26 L (4.40-5.60) 10*6/uL Hgb 15.3 (13.0-17.0) g/dL Hct 44.5 (39.6-50.0) % Plt Count 161 (140-440) 10*3/uL Comprehensive Metabolic Panel 03/04/25 03/04/25 Range/Units 11:41 21:03 Sodium 142 (137-145) mmol/L Potassium 3.4 L 4.1 (3.5-5.1) mmol/L Chloride 105 (98-107) mmol/L Carbon Dioxide 8 L* (22-30) mmol/L BUN 11 (9-20) mg/dL Creatinine 0.93 (0.66-1.25) mg/dL Glucose 403 H (74-99) mg/dL Calcium 8.4 (8.4-10.2) mg/dL AST 178 H (17-59) U/L ALT 73 H (4-49) U/L Alkaline Phosphatase 125 (38-126) U/L Total Protein 6.4 (6.3-8.2) g/dL Albumin 3.6 (3.5-5.0) g/dL Current Medications Generic Name Dose Route Start Last Admin Trade Name Freq PRN Reason Stop Dose Admin Aspirin 81 mg 03/04/25 22:45 Aspirin 81 Mg PO DAILY SILAS Chlorhexidine Gluconate 15 ml 03/04/25 21:00 03/04/25 22:30 Chlorhexidine Gluconate 15 Ml Cup MUCOUS MEM 15 ml BID SILAS Administration Dextrose/Water 25 ml 03/04/25 14:59 Dextrose 50% Syringe 50 Ml IVP PER PROTOCOL PRN Hypoglycemia Protocol Dextrose/Water 50 ml 03/04/25 14:59 Dextrose 50% Syringe 50 Ml IVP PER PROTOCOL PRN Hypoglycemia Protocol Propofol 1,000 mg/ IV Solution 100 mls @ 9.45 mls/hr 03/04/25 12:15 03/04/25 22:29 IV 45 mcg/kg/min .[id number] SILAS 28.35 mls/hr Administration Protocol 15 MCG/KG/MIN Amiodarone HCl 450 mg/ 250 mls @ 16.667 mls/hr 03/04/25 12:15 03/04/25 12:36 Dextrose/Water IV 03/05/25 06:14 0.5 mg/min .Q15H SILAS 16.667 mls/hr Administration Protocol 0.5 MG/MIN Norepinephrine Bitartrate 8 mg 258 mls @ 6.095 mls/hr 03/04/25 17:45 03/04/25 18:02 / Sodium Chloride IV 0.03 mcg/kg/min .Q24H SILAS 6.095 mls/hr Administration Protocol 0.03 MCG/KG/MIN Insulin Glargine 10 unit 03/05/25 07:00 Insulin Glargine (Lantus) 100 Unit/Ml Syr SQ DAILY@0700 [facility] Insulin Human Lispro 0 unit 03/04/25 18:00 03/04/25 18:33 Insulin Lispro (Humalog) 100 Unit/Ml 10 Ml Vl SQ 15 unit Q6HR [facility] Administration Protocol Miscellaneous Information 1 each 03/04/25 14:30 Potassium Replacement Protocol 1 Each Misc MISCELLANE DAILY PRN Per Protocol Protocol Miscellaneous Information 1 each 03/04/25 14:30 Magnesium Replacement Protocol 1 Each Misc MISCELLANE DAILY PRN Per Protocol Protocol Naloxone HCl 0.2 mg 03/04/25 13:14 Naloxone 0.4 Mg/Ml 1 Ml Vial IV Q2M PRN Opioid Reversal Pantoprazole Sodium 40 mg 03/04/25 22:45 Pantoprazole 40 Mg/10 Ml Vial IVP BID SILAS Intake and Output 03/04/25 03/04/25 03/04/25 06:59 14:59 22:59 Intake Total 100.000 509.0 Output Total 10 150 Balance 90.000 359.0 Intake: IV 10 0.9 NS KVO 10 Intake, IV Titration 100.000 389.0 Amount Amiodarone 450 mg In 83.0 Dextrose 5% in Water 250 ml @ 0.5 MG/MIN 16.667 mls/hr IV .Q15H SILAS Rx#: [id number] Magnesium Sulfate-D5w Pmx 100 1 gm In Dextrose/Water 1 100ml.bag @ 100 mls/hr IVPB ONCE ONE Rx#: [id number] Norepinephrine 8 mg In 6 Sodium Chloride 0.9% 250 ml @ 0.03 MCG/KG/MIN 6. 095 mls/hr IV .Q24H SILAS Rx#:[id number] propofoL 1,000 mg In 100.000 200 Empty Bag 1 bag @ 15 MCG/ KG/MIN 9.45 mls/hr IV . [id number] SILAS Rx#:[id number] Other 110 Output: Urine 10 150 Uretheral (Gutierrez) 10 Other: Voiding Method Indwelling Catheter Indwelling Catheter # Bowel Movements 1 Weight 105 kg 105 kg Patient Weight 03/05/25 06:59 Weight 105 kg 03/04/25 11:41 03/04/25 21:03
[2025-03-04 23:14] LABS: Glucose,Whole Blood 291 mg/dL (70-110)
[2025-03-04 23:50] LABS: ALT 67 U/L (4-49); AST 191 U/L (17-59); African American GFR (CKD) 55 (>60 ml/min/1.73 sqM); Albumin 3.4 g/dL (3.5-5.0); Alkaline Phosphatase 87 U/L (38-126); Anion Gap 13 mmol/L; Blood Urea Nitrogen 19 mg/dL (9-20); Calcium 8.5 mg/dL (8.4-10.2); Carbon Dioxide 16 mmol/L (22-30); Chloride 105 mmol/L (98-107); Glucose 303 mg/dL (74-99); Magnesium 2.0 mg/dL (1.6-2.3); Non-African American GFR(CKD) 47 (>60 ml/min/1.73 sqM); Potassium 4.2 mmol/L (3.5-5.1); Sodium 134 mmol/L (137-145); Total Protein 6.2 g/dL (6.3-8.2)
[2025-03-04 23:59] LABS: NT-Pro-B-Type Natriuretic Pept 3570 pg/mL
[2025-03-05] MEDS: PANTOPRAZOLE 40 MG/10 ML VIAL IVP SCH (00:24)
[2025-03-05] MEDS: ASPIRIN 81 MG PO SCH (00:25)
[2025-03-05] MEDS: FUROSEMIDE 10 MG/ML 2 ML VIAL IV ONE (00:38)
[2025-03-05 01:14] LABS: Basophils # (A) 0.02 10*3/uL (0.00-0.10); Basophils % (A) 0.1 %; Eosinophils # (A) 0.00 10*3/uL (0.04-0.35); Eosinophils % (A) 0.0 %; HCT 40.9 % (39.6-50.0); HGB 14.7 g/dL (13.0-17.0); Lymphocytes # (A) 1.39 10*3/uL (0.90-5.00); Lymphocytes % (A) 8.5 %; MCH 35.3 pg (27.0-32.0); MCHC 35.9 g/dL (32.0-37.0); Monocytes # (A) 1.54 10*3/uL (0.20-1.00); Monocytes % (A) 9.4 %; Neutrophils # (A) 13.30 10*3/uL (1.80-7.70); Neutrophils % (A) 81.6 %; Platelet Count 145 10*3/uL (140-440); RBC 4.17 10*6/uL (4.40-5.60); RDW 12.0 % (11.5-14.5); WBC 16.32 10*3/uL (4.50-10.00)
--- NOTE | 2025-03-05 01:16 | P.CNPUL ---
History of Present Illness Consult date: 03/05/25 Requesting physician: Rubio Maldonado Reason for consult: other (ICU management) Chief complaint: [id number] witnessed cardiac arrest History of present illness: Patient is a 69-year-old male with little known past medical history. No prior records available for review. Apparently, patient had called EMS for his brother last night, when they arrived, he collapsed. Found to be in V-fib cardiac arrest. He was defibrillated 3 times, a total of 3 rounds of epinephrine were given, loaded with amiodarone, and intubated in the field. ROSC was achieved, with an estimated 20-minute downtime. At some point, patient self extubated and was reintubated in the emergency department. Chest CT angiogram done in the emergency department did not show any evidence of pulmonary emboli. Findings concerning for CHF. A bedside echo was reportedly done by Cardiology in the emergency department and unofficial reports found to have a severely low ejection fraction, around 10 to 15%. Serial troponins elevated at 1.25 and subsequently 52.1. EKG: Ventricular paced rhythm at 50 bpm. Remaining lab work including a CBC with a WBC count of 21.2, hemoglobin 15.3, platelets 161. CMP: Sodium 142, potassium 3.4, chloride 105, serum bicarb 8, BUN 11, creatinine 0.93, glucose 403. Lactic 2.7. AST 178, ALT 73, ALP 125. Abdominal ultrasound showing cholelithiasis without cholecystitis and hepatic steatosis with hepatomegaly. Repeat labs showing improvement in patient's metabolic acidosis and serum bicarb of 16. Patient has developed acute kidney injury, likely cardiorenal. Patient also noted to have maroon gastric content from his OG tube. Gastroccult was positive. Patient currently being evaluated in the intensive care unit. He remains intubated to mechanical ventilator. Most recent available chest x-ray showing the endotracheal tube above the karen, orogastric tube which should be advanced for 5 cm, patchy appearing pulmonary edema, old sternotomy wires and pacemaker generator in the left chest. Previous ABGs showing a PaO2 of 231, pCO2 of 38, pH of 7.14. Previous ventilator changes made by Dr. Mays. Repeat gases, showing improvement in patient's acid-base balance with a PaO2 of 52, pCO2 of 37, pH of 7.34. Current ventilator settings assist-control, respiratory rate 24, tidal line 450, FiO2 50%, PEEP of 10. SpO2 reading 100% on bedside monitor. He is sedated on propofol at 45 mcg/kg/min. Synchronous with current settings. Difficult to assess neurostatus due to level of sedation. Norepinephrine infusing at 0.03 mcg/kg/min. Also, amiodarone infusing at 0.5 mg/min. Patient's rhythm on bedside monitor is V-paced at 50 bpm. Previously, patient was fluid resuscitated with a total of 2.5 L of crystalloid bolus. Urine output is low less than 30 cc/h Review of Systems ROS unobtainable: due to endotracheal tube Past Medical History Past Medical History: Diabetes Mellitus, Hyperlipidemia, Hypertension Additional Past Medical History / Comment(s): type 2 dm, psoriasis History of Any Multi-Drug Resistant Organisms: None Reported Past Surgical History: Cardiac Valve Replacement, Heart Catheterization, Pacemaker Past Anesthesia/Blood Transfusion Reactions: No Reported Reaction Type of Cardiac Device: Permanent Pacemaker, Unknown Device Placement Date:: 2009 Past Psychological History: No Psychological Hx Reported Smoking Status: Former smoker Medications and Allergies Home Medications Medication Instructions Recorded Confirmed Type Aspirin 81 mg PO DAILY 12/29/13 04/18/19 History amLODIPine BESYLATE [Norvasc] 10 mg PO DAILY 12/29/13 04/18/19 History cloNIDine HCL [Catapres] 0.1 mg PO DAILY 08/25/17 04/18/19 History lisinopriL [Zestril] 20 mg PO DAILY 08/25/17 04/18/19 History EPINEPHrine (Auto Inject) [Epipen] 0.3 mg IM ONCE PRN #2 syringe 04/18/19 Rx predniSONE [Deltasone] 40 mg PO DAILY #8 tab 04/18/19 Rx Atorvastatin [Lipitor] 20 mg PO DAILY 03/04/25 03/04/25 History amLODIPine [Norvasc] 10 mg PO DAILY 03/04/25 03/04/25 History lisinopriL [Zestril] 10 mg PO DAILY 03/04/25 03/04/25 History Allergies Allergy/AdvReac Type Severity Reaction Status Date / Time bee venom protein (honey bee) Allergy Unknown Verified 03/05/25 08:53 Physical Exam Vitals: Vital Signs Temp Pulse Resp BP Pulse Ox FiO2 03/05/25 00:18 50 03/04/25 22:00 49 L 24 97/64 100 03/04/25 21:45 49 L 27 H 102/64 100 03/04/25 21:30 49 L 28 H 99/69 100 03/04/25 21:15 49 L 25 H 96/68 100 03/04/25 21:00 49 L 27 H 106/64 100 03/04/25 20:45 50 L 24 102/61 100 03/04/25 20:30 50 L 25 H 110/62 100 03/04/25 20:15 49 L 24 100/65 100 03/04/25 20:08 50 03/04/25 20:00 97.2 F L 50 L 25 H 99/66 100 50 03/04/25 19:45 50 L 26 H 94/64 100 03/04/25 19:30 50 L 27 H 96/60 100 03/04/25 19:15 50 L 24 98/62 100 03/04/25 19:00 49 L 24 104/54 100 03/04/25 18:45 49 L 24 94/60 99 03/04/25 18:30 49 L 24 91/57 100 03/04/25 18:15 49 L 24 85/55 100 03/04/25 18:00 50 L 24 78/50 100 03/04/25 17:45 49 L 24 74/48 100 03/04/25 17:30 49 L 24 86/51 100 03/04/25 17:15 49 L 24 92/59 100 03/04/25 17:00 49 L 24 87/55 100 03/04/25 16:45 50 L 24 85/58 100 03/04/25 16:30 49 L 24 88/58 100 03/04/25 16:15 49 L 24 93/57 100 03/04/25 16:00 97.4 F L 49 L 24 90/56 100 50 03/04/25 15:45 50 L 24 92/59 100 03/04/25 15:33 50 03/04/25 15:30 49 L 24 98/62 100 03/04/25 15:15 50 L 24 94/60 100 03/04/25 15:00 49 L 24 97/55 100 03/04/25 14:45 50 L 25 H 98/58 100 03/04/25 14:43 50 03/04/25 14:30 49 L 28 H 130/78 100 03/04/25 14:15 97 F L 49 L 32 H 135/75 95 03/04/25 13:45 97.0 F L 50 L 32 H 123/71 97 03/04/25 13:22 50 L 30 H 131/70 96 03/04/25 13:15 97.0 F L 49 L 34 H 135/71 97 03/04/25 13:00 52 L 34 H 130/69 96 03/04/25 12:50 50 L 30 H 137/74 96 03/04/25 12:42 49 L 30 H 106/60 95 03/04/25 12:28 50 03/04/25 12:26 50 03/04/25 12:15 49 L 27 H 155/81 100 03/04/25 12:05 49 L 28 H 135/9 100 03/04/25 11:50 120/75 03/04/25 11:44 50 L 31 H 104/66 100 03/04/25 11:35 100 03/04/25 11:31 49 L 22 94/58 87 L 03/04/25 11:20 97.8 F 49 L 20 100/60 93 L Intake and Output 03/04/25 03/04/25 03/05/25 14:59 22:59 06:59 Intake Total 100.000 509.0 Output Total 10 150 Balance 90.000 359.0 Intake: IV 10 0.9 NS KVO 10 Intake, IV Titration 100.000 389.0 Amount Amiodarone 450 mg In 83.0 Dextrose 5% in Water 250 ml @ 0.5 MG/MIN 16.667 mls/hr IV .Q15H [facility] Rx#: [id number] Magnesium Sulfate-D5w Pmx 100 1 gm In Dextrose/Water 1 100ml.bag @ 100 mls/hr IVPB ONCE ONE Rx#: [id number] Norepinephrine 8 mg In 6 Sodium Chloride 0.9% 250 ml @ 0.03 MCG/KG/MIN 6. 095 mls/hr IV .Q24H [facility] Rx#:[id number] propofoL 1,000 mg In 100.000 200 Empty Bag 1 bag @ 15 MCG/ KG/MIN 9.45 mls/hr IV . [id number] [facility] Rx#:[id number] Other 110 Output: Urine 10 150 Uretheral (Gutierrez) 10 Other: Voiding Method Indwelling Catheter Indwelling Catheter # Bowel Movements 1 Weight 105 kg 105 kg GENERAL EXAM: Sedated, 69-year-old male, intubated mechanical ventilator. Synchronous with current ventilator settings. HEAD: Normocephalic and atraumatic EYES: Normal reaction of pupils, equal size. Anicteric. No nystagmus. NOSE: Clear with pink turbinates. THROAT: No erythema or exudates. NECK: No masses, no JVD. CHEST: Left chest pacemaker generator. Remote appearing sternotomy incision. LUNGS: Equal air entry with no crackles, wheeze, rhonchi or dullness. CVS: S1 and S2 normal with no audible murmur, regular rhythm. No extra heart sounds ABDOMEN: No hepatosplenomegaly, active bowel sounds, no guarding or rigidity. SPINE: No scoliosis or deformity SKIN: No rashes CENTRAL NERVOUS SYSTEM: Sedated on propofol, complete neurological examination difficult due to level of sedation. Positive gag, flaccid extremities, neutral Babinski bilaterally. EXTREMITIES: There is no peripheral edema, clubbing, or cyanosis. Peripheral pulses are weak and thready. Extremities warm. Results - Laboratory Findings CBC and BMP: 03/05/25 04:45 03/05/25 04:45 ABG ABG pH 7.34 (7.35-7.45) L 03/04/25 18:20 ABG pCO2 37 mmHg (35-45) 03/04/25 18:20 ABG pO2 52 mmHg (83-108) L* 03/04/25 18:20 ABG O2 Saturation 84.1 % (94-97) L 03/04/25 18:20 PT/INR, D-dimer PT 14.4 sec (10.0-12.5) H 03/04/25 11:41 INR 1.4 (<1.2) H 03/04/25 11:41 Abnormal lab findings: Abnormal Labs 03/04/25 03/04/25 03/04/25 11:41 11:41 11:41 WBC 21.20 H RBC 4.26 L MCV 104.5 H MCH 35.9 H Immature Gran # 0.56 H Neutrophils # (Manual) 12.30 H Lymphocytes # (Manual) 8.06 H PT 14.4 H INR 1.4 H APTT 20.6 L ABG pH ABG pO2 ABG HCO3 ABG Total CO2 ABG O2 Saturation Sodium Potassium 3.4 L Carbon Dioxide 8 L* Creatinine Glucose 403 H POC Glucose (mg/dL) Plasma Lactic Acid Ayl AST 178 H ALT 73 H Troponin I Total Protein Albumin 03/04/25 03/04/25 03/04/25 11:41 12:13 13:58 WBC RBC MCV MCH Immature Gran # Neutrophils # (Manual) Lymphocytes # (Manual) PT INR APTT ABG pH 7.14 L* ABG pO2 231 H ABG HCO3 13 L ABG Total CO2 14 L ABG O2 Saturation 99.4 H Sodium Potassium Carbon Dioxide Creatinine Glucose POC Glucose (mg/dL) 429 H Plasma Lactic Acid Aly AST ALT Troponin I 1.250 H* Total Protein Albumin 03/04/25 03/04/25 03/04/25 14:12 18:18 18:20 WBC RBC MCV MCH Immature Gran # Neutrophils # (Manual) Lymphocytes # (Manual) PT INR APTT ABG pH 7.34 L ABG pO2 52 L* ABG HCO3 20 L ABG Total CO2 ABG O2 Saturation 84.1 L Sodium Potassium Carbon Dioxide Creatinine Glucose POC Glucose (mg/dL) 414 H 365 H Plasma Lactic Acid Aly AST ALT Troponin I Total Protein Albumin 03/04/25 03/04/25 03/04/25 21:03 23:08 23:08 WBC RBC MCV MCH Immature Gran # Neutrophils # (Manual) Lymphocytes # (Manual) PT INR APTT ABG pH ABG pO2 ABG HCO3 ABG Total CO2 ABG O2 Saturation Sodium 134 L Potassium Carbon Dioxide 16 L Creatinine 1.51 H Glucose 303 H POC Glucose (mg/dL) Plasma Lactic Acid Aly 2.7 H* AST 191 H ALT 67 H Troponin I 52.100 H* Total Protein 6.2 L Albumin 3.4 L 03/04/25 23:13 WBC RBC MCV MCH Immature Gran # Neutrophils # (Manual) Lymphocytes # (Manual) PT INR APTT ABG pH ABG pO2 ABG HCO3 ABG Total CO2 ABG O2 Saturation Sodium Potassium Carbon Dioxide Creatinine Glucose POC Glucose (mg/dL) 291 H Plasma Lactic Acid Aly AST ALT Troponin I Total Protein Albumin - Diagnostic Findings Chest x-ray: image reviewed Assessment and Plan Assessment: [id number], witnessed cardiac arrest, presenting rhythm was ventricular fibrillation with prolonged downtime estimated at 20 minutes per ER documentation. Acute systolic congestive heart failure Acute hypoxemic respiratory failure, secondary to above, intubated to mechanical ventilator; chest x-ray showing the endotracheal tube above the karen, orogastric tube which should be advanced approximately 5 cm, patchy appearing pulmonary edema, old sternotomy wires and pacemaker generator in the left chest. Hypotension and shock, possibly cardiogenic Anion gap metabolic acidosis Acute kidney injury, cardiorenal History of diabetes mellitus, with hyperglycemia Acute leukocytosis, likely reactive Hypokalemia, replaced GI bleed, with maroon gastric content coming from orogastric tube History of open heart surgery History of permanent pacemaker, currently ventricularly paced rhythm Plan: Patient's medications, labs, imaging reviewed Continue on mechanical ventilator with current settings ABG reviewed showing improvement in patient's metabolic acidosis Continue norepinephrine for blood pressure support, and to maintain a MAP of 65 mmHg or greater Amiodarone infusing per protocol at 0.5 mg/min Will need central line established, as well as, arterial line Chest CT angiogram did not show evidence of pulmonary embolism Per cardiology, possible plan for heart catheterization based on neurological status. Official report from echocardiogram pending Device interrogation Cardiology previously recommended against systemic heparinization due to maroon OG output Monitor H&H, transfuse for hemoglobin less than 7 g/dl, Protonix added 40 mg twice daily, Consult GI Case were reviewed with my supervising physician, additional recommendations will be forthcoming I have personally seen and examined the patient, performed the documentation and the assessment and plan as written. Number of minutes spent on the visit:20 On 03/05/2025, the patient is being seen in the joint evaluation along with the nurse practitioner. The patient is postcardiac arrest with an estimated downtime of around 20 minutes and the patient received CPR and defibrillation for V-fib cardiac arrest. The patient is currently intubated and mechanically ventilated in the intensive care unit. He is post acute non-ST segment ovation myocardial infarction. He is known to have severe cardiomyopathy and diabetes mellitus and is also known to have coronary artery disease with previous coronary bypass surgery. He also has a permanent pacemaker in place and currently is V paced. At the time of my evaluation, the patient was on propofol running at 45 mcg/kg/min. The patient is also on amiodarone at 0.5 mg/min and norepinephrine running at 0.04 mcg/kg/min. Normal saline is currently at 10 cc an hour. He is on assist-control mode mechanical ventilation at rate of 24, tidal volume of 450, FiO2 40% with a PEEP of 10. Blood gases showed a pH of 7.44 with a PCO2 of 32 and PO2 of 173. The PEEP was dropped down to 8. He did have some limited maroon-colored output from the OG tube and the patient is currently not receiving any form of anticoagulants. He is on Lantus insulin 10 units on a daily basis along with sliding scale coverage. The echocardiogram was completed this morning and the patient was found to have impaired LV f unction with ejection fraction of 35 to 40%. This was a technically difficult study. Troponins were also elevated and it peaked at 52. Cardiology is aware and the patient is currently on a combination of aspirin and Plavix was also added. The patient is also on Lipitor 40 mg p.o. daily. His LDL cholesterol is currently at 116. Cardiac evaluation has been done. Apparently, the patient will require coronary angiography pending his neurologic status and outcome. A triple-lumen catheter was also inserted. The pacemaker will be interrogated. Will watch for any signs of GI bleeding. Patient is currently on Protonix. This is a joint evaluation, this evaluation was done in 45 minutes. Case was discussed with cardiology. Time with Patient: Greater than 30
--- NOTE | 2025-03-05 01:17 | P.PCN ---
Date of Procedure: 03/05/25 Preoperative Diagnosis: [id number] witnessed cardiac arrest, hypotension/shock Postoperative Diagnosis: Out of hospital witnessed cardiac arrest, hypotension/shock Procedure(s) Performed: Insertion of left wrist radial arterial line Indications for Procedure: Hemodynamic monitoring and frequent blood draws Description of Procedure: Informed consent was obtained, and a procedural timeout was performed . The patient was placed in supine position. The left radial region was prepared in a sterile fashion, and a sterile drape was applied. The left radial artery was palpated, easily cannulated, and a guidewire was placed. A Cook catheter was inserted over the guidewire, and the guidewire was removed. There was good arterial blood flow, good arterial waveform, and no complications. The line was secured with using a 3-0 silk suture.
[2025-03-05 02:06] LABS: MCV 98.1 fL (80.0-97.0)
[2025-03-05] MEDS ORDERED: AMIODARONE 450 MG in DEXTROSE 5% IN WATER 250 ML IV SCH (04:00)
[2025-03-05] MEDS: AMIODARONE 450 MG in DEXTROSE 5% IN WATER 250 ML IV SCH (04:12)
[2025-03-05 05:15] LABS: Basophils # (A) 0.03 10*3/uL (0.00-0.10); Basophils % (A) 0.2 %; Eosinophils # (A) 0.00 10*3/uL (0.04-0.35); Eosinophils % (A) 0.0 %; HCT 42.1 % (39.6-50.0); HGB 14.8 g/dL (13.0-17.0); Lymphocytes # (A) 2.07 10*3/uL (0.90-5.00); Lymphocytes % (A) 12.8 %; MCH 34.3 pg (27.0-32.0); MCHC 35.2 g/dL (32.0-37.0); MCV 97.5 fL (80.0-97.0); Monocytes # (A) 1.69 10*3/uL (0.20-1.00); Monocytes % (A) 10.4 %; Neutrophils # (A) 12.37 10*3/uL (1.80-7.70); Neutrophils % (A) 76.4 %; Platelet Count 146 10*3/uL (140-440); RBC 4.32 10*6/uL (4.40-5.60); RDW 12.1 % (11.5-14.5); WBC 16.19 10*3/uL (4.50-10.00)
[2025-03-05 05:24] LABS: ABG HCO3 21 mmol/L (21-25); ABG PCO2 32 mmHg (35-45); ABG PH 7.44 (7.35-7.45); ABG PO2 173 mmHg (83-108); ABG TCO2 22 mmol/L (19-24)
[2025-03-05 05:25] LABS: Allen Test Performed? no
[2025-03-05 05:34] LABS: African American GFR (CKD) 50 (>60 ml/min/1.73 sqM); Anion Gap 12 mmol/L; Blood Urea Nitrogen 20 mg/dL (9-20); Calcium 8.6 mg/dL (8.4-10.2); Carbon Dioxide 19 mmol/L (22-30); Chloride 104 mmol/L (98-107); Glucose 269 mg/dL (74-99); Magnesium 1.9 mg/dL (1.6-2.3); Non-African American GFR(CKD) 43 (>60 ml/min/1.73 sqM); Potassium 3.6 mmol/L (3.5-5.1); Sodium 135 mmol/L (137-145)
[2025-03-05 05:42] LABS: Glucose,Whole Blood 273 mg/dL (70-110)
[2025-03-05 05:59] LABS: Bacteria,Urine Few /hpf; Bilirubin,Urine Negative (Negative); Blood,Urine Moderate (Negative); Color,Urine Yellow; Glucose,Urine (UA) Trace (Negative); Ketones,Urine Negative (Negative); Leukocyte Esterase,Urine Negative (Negative); Nitrite,Urine Negative (Negative); PH, Urine 6.0 (5.0-8.0); Protein,Urine 2+ (Negative); RBC,Urine 30 /hpf (0-5); Urobilinogen,Urine 2.0 mg/dL (<2.0); WBC,Urine 36 /hpf (0-5)
[2025-03-05 06:00] LABS: Specific Gravity,Urine >1.050 (1.001-1.035)
[2025-03-05] MEDS: POTASSIUM BICARBONATE/CIT AC 20 MEQ TABLET.EFF NG-TUBE SCH (06:21)
[2025-03-05] MEDS: MAGNESIUM SULFATE-D5W PMX 1 GM in DEXTROSE/WATER 1 100ML.BAG IVPB ONE (06:21)
[2025-03-05] MEDS: INSULIN GLARGINE (LANTUS) 100 UNIT/ML SYR SQ SCH ×2 (06:22→20:42)
--- NOTE | 2025-03-05 07:59 | P.PN ---
Subjective Progress Note Date: 03/05/25 PROGRESS NOTE The patient is a 69-year-old male with a history of CAD, status post CABG, status post permanent pacemaker implantation who presented with cardiac arrest and prolonged CPR. His EKG revealed paced rhythm with underlying sinus mechanism and paced at VVI. Apparently had a V-fib arrest. The patient is not anticoagulated because of evidence of GI bleeding. Full details of prior history is unclear. He remains intubated and sedated. Underlying sinus mechanism. His troponin is elevated at 52. Medications: IV amiodarone, aspirin, insulin, Levophed PHYSICAL EXAMINATION: Blood pressure 115/60 heart rate 50, intubated and sedated LUNGS: Clear to auscultation HEART: Regular rate and rhythm, S1, S2. No S3. Systolic ejection murmur ABDOMEN: Soft, no organomegaly EXTREMETIES: No edema LAB: WBC 16.9, hemoglobin 14.8, potassium 3.6, BUN 20, creatinine 1.63, magnesium 1.9 IMPRESSION: 1. Cardiac arrest probably ischemic in a patient with known history of CAD, full detail of his prior CABG is not clear 2. Status post permanent pacemaker implantation with evidence consistent with generator depletion 3. Anoxic encephalopathy, severity unclear 4. History of hypertension per medications 5. History of hyperlipidemia PLAN: 1. Add Plavix 75 mg daily 2. Obtain an echocardiogram with Doppler 3. Continue IV amiodarone for now 4. Assess neurological status 5. The patient will require coronary angiography pending neurological status assessment 6. The patient will require generator change depending on the neurological status 7. Prognosis is guarded Objective - Vital Signs Vital signs: Vital Signs Temp 98.6 F 03/05/25 04:00 Pulse 49 L 03/05/25 07:00 Resp 24 03/05/25 07:00 BP 99/66 03/05/25 03:15 Pulse Ox 100 03/05/25 07:00 FiO2 50 03/05/25 04:30 Intake & Output 03/04/25 03/05/25 03/05/25 18:59 06:59 18:59 Intake Total 476.400 522.293 73 Output Total 85 765 30 Balance 391.400 -242.707 43 Weight 105 kg 107.1 kg Intake: IV 128 13 0.9 NS KVO 110 10 Pressure Bag 18 3 Intake, IV Titration 366.400 354.293 Amount Amiodarone 450 mg In 66.4 16.6 Dextrose 5% in Water 250 ml @ 0.5 MG/MIN 16.667 mls/hr IV .Q15H [facility] Rx#: [id number] Magnesium Sulfate-D5w Pmx 100 1 gm In Dextrose/Water 1 100ml.bag @ 100 mls/hr IVPB ONCE ONE Rx#: [id number] Norepinephrine 8 mg In 47.446 Sodium Chloride 0.9% 250 ml @ 0.03 MCG/KG/MIN 6. 095 mls/hr IV .Q24H [facility] Rx#:[id number] propofoL 1,000 mg In 200.000 290.247 Empty Bag 1 bag @ 15 MCG/ KG/MIN 9.45 mls/hr IV . [id number] [facility] Rx#:[id number] Other 110 40 60 Output: Gastric Drainage 250 Urine 85 515 30 Uretheral (Gutierrez) 10 Other: Voiding Method Indwelling Catheter Indwelling Catheter # Bowel Movements 1 1 ABP, PAP, CO, CI - Last Documented Arterial Blood Pressure 115/58 - Labs CBC & Chem 7: 03/05/25 04:45 03/05/25 04:45 Labs: Abnormal Lab Results - Last 24 Hours (Table) 03/04/25 03/04/25 03/04/25 Range/Units 11:41 11:41 11:41 WBC 21.20 H (4.50-10.00) 10*3/uL RBC 4.26 L (4.40-5.60) 10*6/uL MCV 104.5 H (80.0-97.0) fL MCH 35.9 H (27.0-32.0) pg Immature Gran # 0.56 H (0.00-0.04) 10*3/uL Neutrophils # (1.80-7.70) 10*3/uL Neutrophils # (Manual) 12.30 H (1.3-7.7) k/uL Lymphocytes # (Manual) 8.06 H (1.0-4.8) k/uL Monocytes # (0.20-1.00) 10*3/uL Eosinophils # (0.04-0.35) 10*3/uL PT 14.4 H (10.0-12.5) sec INR 1.4 H (<1.2) APTT 20.6 L (22.0-30.0) sec ABG pH (7.35-7.45) ABG pCO2 (35-45) mmHg ABG pO2 (83-108) mmHg ABG HCO3 (21-25) mmol/L ABG Total CO2 (19-24) mmol/L ABG O2 Saturation (94-97) % Sodium (137-145) mmol/L Potassium 3.4 L (3.5-5.1) mmol/L Carbon Dioxide 8 L* (22-30) mmol/L Creatinine (0.66-1.25) mg/dL Glucose 403 H (74-99) mg/dL POC Glucose (mg/dL) (70-110) mg/dL Plasma Lactic Acid Aly (0.7-2.0) mmol/L AST 178 H (17-59) U/L ALT 73 H (4-49) U/L Troponin I (0.000-0.034) ng/mL Total Protein (6.3-8.2) g/dL Albumin (3.5-5.0) g/dL Ur Specific [place] (1.001-1.035) Urine Protein (Negative) Urine Glucose (UA) (Negative) Urine Blood (Negative) Urine RBC (0-5) /hpf Urine WBC (0-5) /hpf Urine Bacteria (None) /hpf 03/04/25 03/04/25 03/04/25 Range/Units 11:41 12:13 13:58 WBC (4.50-10.00) 10*3/uL RBC (4.40-5.60) 10*6/uL MCV (80.0-97.0) fL MCH (27.0-32.0) pg Immature Gran # (0.00-0.04) 10*3/uL Neutrophils # (1.80-7.70) 10*3/uL Neutrophils # (Manual) (1.3-7.7) k/uL Lymphocytes # (Manual) (1.0-4.8) k/uL Monocytes # (0.20-1.00) 10*3/uL Eosinophils # (0.04-0.35) 10*3/uL PT (10.0-12.5) sec INR (<1.2) APTT (22.0-30.0) sec ABG pH 7.14 L* (7.35-7.45) ABG pCO2 (35-45) mmHg ABG pO2 231 H (83-108) mmHg ABG HCO3 13 L (21-25) mmol/L ABG Total CO2 14 L (19-24) mmol/L ABG O2 Saturation 99.4 H (94-97) % Sodium (137-145) mmol/L Potassium (3.5-5.1) mmol/L Carbon Dioxide (22-30) mmol/L Creatinine (0.66-1.25) mg/dL Glucose (74-99) mg/dL POC Glucose (mg/dL) 429 H (70-110) mg/dL Plasma Lactic Acid Aly (0.7-2.0) mmol/L AST (17-59) U/L ALT (4-49) U/L Troponin I 1.250 H* (0.000-0.034) ng/mL Total Protein (6.3-8.2) g/dL Albumin (3.5-5.0) g/dL Ur Specific [place] (1.001-1.035) Urine Protein (Negative) Urine Glucose (UA) (Negative) Urine Blood (Negative) Urine RBC (0-5) /hpf Urine WBC (0-5) /hpf Urine Bacteria (None) /hpf 03/04/25 03/04/25 03/04/25 Range/Units 14:12 18:18 18:20 WBC (4.50-10.00) 10*3/uL RBC (4.40-5.60) 10*6/uL MCV (80.0-97.0) fL MCH (27.0-32.0) pg Immature Gran # (0.00-0.04) 10*3/uL Neutrophils # (1.80-7.70) 10*3/uL Neutrophils # (Manual) (1.3-7.7) k/uL Lymphocytes # (Manual) (1.0-4.8) k/uL Monocytes # (0.20-1.00) 10*3/uL Eosinophils # (0.04-0.35) 10*3/uL PT (10.0-12.5) sec INR (<1.2) APTT (22.0-30.0) sec ABG pH 7.34 L (7.35-7.45) ABG pCO2 (35-45) mmHg ABG pO2 52 L* (83-108) mmHg ABG HCO3 20 L (21-25) mmol/L ABG Total CO2 (19-24) mmol/L ABG O2 Saturation 84.1 L (94-97) % Sodium (137-145) mmol/L Potassium (3.5-5.1) mmol/L Carbon Dioxide (22-30) mmol/L Creatinine (0.66-1.25) mg/dL Glucose (74-99) mg/dL POC Glucose (mg/dL) 414 H 365 H (70-110) mg/dL Plasma Lactic Acid Aly (0.7-2.0) mmol/L AST (17-59) U/L ALT (4-49) U/L Troponin I (0.000-0.034) ng/mL Total Protein (6.3-8.2) g/dL Albumin (3.5-5.0) g/dL Ur Specific [place] (1.001-1.035) Urine Protein (Negative) Urine Glucose (UA) (Negative) Urine Blood (Negative) Urine RBC (0-5) /hpf Urine WBC (0-5) /hpf Urine Bacteria (None) /hpf 03/04/25 03/04/25 03/04/25 Range/Units 21:03 22:49 23:08 WBC (4.50-10.00) 10*3/uL RBC (4.40-5.60) 10*6/uL MCV (80.0-97.0) fL MCH (27.0-32.0) pg Immature Gran # (0.00-0.04) 10*3/uL Neutrophils # (1.80-7.70) 10*3/uL Neutrophils # (Manual) (1.3-7.7) k/uL Lymphocytes # (Manual) (1.0-4.8) k/uL Monocytes # (0.20-1.00) 10*3/uL Eosinophils # (0.04-0.35) 10*3/uL PT (10.0-12.5) sec INR (<1.2) APTT (22.0-30.0) sec ABG pH (7.35-7.45) ABG pCO2 (35-45) mmHg ABG pO2 (83-108) mmHg ABG HCO3 (21-25) mmol/L ABG Total CO2 (19-24) mmol/L ABG O2 Saturation (94-97) % Sodium (137-145) mmol/L Potassium (3.5-5.1) mmol/L Carbon Dioxide (22-30) mmol/L Creatinine (0.66-1.25) mg/dL Glucose (74-99) mg/dL POC Glucose (mg/dL) (70-110) mg/dL Plasma Lactic Acid Aly 2.7 H* (0.7-2.0) mmol/L AST (17-59) U/L ALT (4-49) U/L Troponin I 52.100 H* (0.000-0.034) ng/mL Total Protein (6.3-8.2) g/dL Albumin (3.5-5.0) g/dL Ur Specific [place] >1.050 H (1.001-1.035) Urine Protein 2+ H (Negative) Urine Glucose (UA) Trace H (Negative) Urine Blood Moderate H (Negative) Urine RBC 30 H (0-5) /hpf Urine WBC 36 H (0-5) /hpf Urine Bacteria Few H (None) /hpf 03/04/25 03/04/25 03/05/25 Range/Units 23:08 23:13 00:40 WBC 16.32 H (4.50-10.00) 10*3/uL RBC 4.17 L (4.40-5.60) 10*6/uL MCV 98.1 H D (80.0-97.0) fL MCH 35.3 H (27.0-32.0) pg Immature Gran # 0.07 H (0.00-0.04) 10*3/uL Neutrophils # 13.30 H (1.80-7.70) 10*3/uL Neutrophils # (Manual) (1.3-7.7) k/uL Lymphocytes # (Manual) (1.0-4.8) k/uL Monocytes # 1.54 H (0.20-1.00) 10*3/uL Eosinophils # 0.00 L (0.04-0.35) 10*3/uL PT (10.0-12.5) sec INR (<1.2) APTT (22.0-30.0) sec ABG pH (7.35-7.45) ABG pCO2 (35-45) mmHg ABG pO2 (83-108) mmHg ABG HCO3 (21-25) mmol/L ABG Total CO2 (19-24) mmol/L ABG O2 Saturation (94-97) % Sodium 134 L (137-145) mmol/L Potassium (3.5-5.1) mmol/L Carbon Dioxide 16 L (22-30) mmol/L Creatinine 1.51 H (0.66-1.25) mg/dL Glucose 303 H (74-99) mg/dL POC Glucose (mg/dL) 291 H (70-110) mg/dL Plasma Lactic Acid Aly (0.7-2.0) mmol/L AST 191 H (17-59) U/L ALT 67 H (4-49) U/L Troponin I (0.000-0.034) ng/mL Total Protein 6.2 L (6.3-8.2) g/dL Albumin 3.4 L (3.5-5.0) g/dL Ur Specific [place] (1.001-1.035) Urine Protein (Negative) Urine Glucose (UA) (Negative) Urine Blood (Negative) Urine RBC (0-5) /hpf Urine WBC (0-5) /hpf Urine Bacteria (None) /hpf 03/05/25 03/05/25 03/05/25 Range/Units 02:15 04:45 04:45 WBC 16.19 H (4.50-10.00) 10*3/uL RBC 4.32 L (4.40-5.60) 10*6/uL MCV 97.5 H (80.0-97.0) fL MCH 34.3 H (27.0-32.0) pg Immature Gran # (0.00-0.04) 10*3/uL Neutrophils # 12.37 H (1.80-7.70) 10*3/uL Neutrophils # (Manual) (1.3-7.7) k/uL Lymphocytes # (Manual) (1.0-4.8) k/uL Monocytes # 1.69 H (0.20-1.00) 10*3/uL Eosinophils # 0.00 L (0.04-0.35) 10*3/uL PT (10.0-12.5) sec INR (<1.2) APTT (22.0-30.0) sec ABG pH (7.35-7.45) ABG pCO2 (35-45) mmHg ABG pO2 (83-108) mmHg ABG HCO3 (21-25) mmol/L ABG Total CO2 (19-24) mmol/L ABG O2 Saturation (94-97) % Sodium 135 L (137-145) mmol/L Potassium (3.5-5.1) mmol/L Carbon Dioxide 19 L (22-30) mmol/L Creatinine 1.63 H (0.66-1.25) mg/dL Glucose 269 H (74-99) mg/dL POC Glucose (mg/dL) (70-110) mg/dL Plasma Lactic Acid Aly 2.6 H* (0.7-2.0) mmol/L AST (17-59) U/L ALT (4-49) U/L Troponin I (0.000-0.034) ng/mL Total Protein (6.3-8.2) g/dL Albumin (3.5-5.0) g/dL Ur Specific [place] (1.001-1.035) Urine Protein (Negative) Urine Glucose (UA) (Negative) Urine Blood (Negative) Urine RBC (0-5) /hpf Urine WBC (0-5) /hpf Urine Bacteria (None) /hpf 03/05/25 03/05/25 Range/Units 05:17 05:40 WBC (4.50-10.00) 10*3/uL RBC (4.40-5.60) 10*6/uL MCV (80.0-97.0) fL MCH (27.0-32.0) pg Immature Gran # (0.00-0.04) 10*3/uL Neutrophils # (1.80-7.70) 10*3/uL Neutrophils # (Manual) (1.3-7.7) k/uL Lymphocytes # (Manual) (1.0-4.8) k/uL Monocytes # (0.20-1.00) 10*3/uL Eosinophils # (0.04-0.35) 10*3/uL PT (10.0-12.5) sec INR (<1.2) APTT (22.0-30.0) sec ABG pH (7.35-7.45) ABG pCO2 32 L (35-45) mmHg ABG pO2 173 H (83-108) mmHg ABG HCO3 (21-25) mmol/L ABG Total CO2 (19-24) mmol/L ABG O2 Saturation 99.9 H (94-97) % Sodium (137-145) mmol/L Potassium (3.5-5.1) mmol/L Carbon Dioxide (22-30) mmol/L Creatinine (0.66-1.25) mg/dL Glucose (74-99) mg/dL POC Glucose (mg/dL) 273 H (70-110) mg/dL Plasma Lactic Acid Aly (0.7-2.0) mmol/L AST (17-59) U/L ALT (4-49) U/L Troponin I (0.000-0.034) ng/mL Total Protein (6.3-8.2) g/dL Albumin (3.5-5.0) g/dL Ur Specific [place] (1.001-1.035) Urine Protein (Negative) Urine Glucose (UA) (Negative) Urine Blood (Negative) Urine RBC (0-5) /hpf Urine WBC (0-5) /hpf Urine Bacteria (None) /hpf
[2025-03-05 08:07] LABS: Cholesterol 228.00 mg/dL (0.00-200.00); HDL Cholesterol 38.80 mg/dL (40.00-60.00); LDL Cholesterol,Calculated 116.6 mg/dL (0.0-131.0); Triglycerides 363.00 mg/dL (0.00-149.00); VLDL Calculation 72.60 mg/dL (5.00-40.00)
--- NOTE | 2025-03-05 08:26 | XR ---
EXAMINATION TYPE: XR chest 1V DATE OF EXAM: 03/05/2025 COMPARISON: 03/05/2025 CLINICAL INDICATION: Male, 69 years old with history of ET tube placement; TECHNIQUE: Single frontal view of the chest is obtained. FINDINGS: ET and NG tubes are in place. Left anterior chest wall pacemaker generator with right atria l and right ventricular leads. Median sternotomy wires. Heart upper limits of normal in size. Mild in terstitial prominence is unchanged. No consolidation or pleural effusion. IMPRESSION: Similar borderline heart size and mild interstitial densities. [facility], Workstation: [email or web address], 03/05/2025 8:24 AM
--- NOTE | 2025-03-05 08:36 | XR ---
EXAMINATION TYPE: XR chest 1V portable DATE OF EXAM: 03/05/2025 5:34 AM COMPARISON: 03/04/2025 CLINICAL INDICATION: Male, 69 years old with history of Tube placement, , FINDINGS: ET tube satisfactory. Distal aspect of the NG tube is not well seen but courses down to the level of the diaphragm. Left anterior chest wall pacemaker generator with right atrial and ventricular leads. Median sternotomy wires. Heart mildly enlarged. Interstitial densities show considerable improvement. No consolidation or pleural effusion. IMPRESSION: Some minimal residual pulmonary vascular congestion may remain. There has been considerable improveme nt from the prior exam. [facility], , 03/05/2025 8:34 AM
[2025-03-05] MEDS: CLOPIDOGREL 75 MG TAB PO SCH (09:27)
--- NOTE | 2025-03-05 10:54 | XR ---
EXAMINATION TYPE: XR chest 1V DATE OF EXAM: 03/05/2025 10:41 AM COMPARISON: Chest radiographs from 03/05/2025. CLINICAL INDICATION: Male, 69 years old with history of post line; [facility] TECHNIQUE: XR chest 1V Frontal view of the chest. FINDINGS: Lungs/Pleura: There is no evidence of pleural effusion, focal consolidation, or pneumothorax. Pulmonary vascularity: Unremarkable. Heart/mediastinum: Cardiomediastinal silhouette is prominent in size. Two lead cardiac conduction dev ice overlying the left hemithorax with lead tips projecting over the right ventricle and right atrium . Musculoskeletal: No acute osseous pathology. Midline sternotomy wires are noted. Other findings: None Lines/Tubes: Endotracheal tube with distal tip 5.7cm above the karen. Nasogastric tube with its distal tip and side-port projecting under the diaphragm. Right central venous catheter with distal tip in the superior vena cava/superior cavoatrial junction. IMPRESSION: No acute cardiopulmonary disease/process. [facility], , 03/05/2025 10:52 AM
--- NOTE | 2025-03-05 11:29 | P.CONS ---
History of Present Illness - Reason for Consult Consult date: 03/05/25 GI bleed, gastric occult positive Requesting physician: Zheng Salguero - Chief Complaint Cardiac arrest - History of Present Illness This is a 69-year-old male currently being evaluated in the intensive care unit who was admitted following cardiac arrest. HPI is obtained from chart and patient's nurse. Apparently patient was assisting a family member who had fallen and EMS was there to assist that family member when the patient suddenly collapsed and was found in V. tach and CPR was started. Patient was intubated in the field as well as reintubated in the emergency department as patient had pulled out his ET tube on his way and route. Patient is currently intubated and sedated. Apparently had about 250 cc of reportedly maroon-colored output from OG tube therefore gastroenterology was consulted. Oh tube currently clamped and therefore no further output at this time. Admitting hemoglobin 15.3 with repeat today of 14.8. Medications reviewed and does not appear to be on any anticoagulation, aspirin 81 mg daily is listed in home medication list. Patient has had no further maroon-colored output from OG tube. Review of Systems ROS unobtainable: due to endotracheal tube Past Medical History Past Medical History: Diabetes Mellitus, Hyperlipidemia, Hypertension Additional Past Medical History / Comment(s): type 2 dm, psoriasis History of Any Multi-Drug Resistant Organisms: None Reported Past Surgical History: Cardiac Valve Replacement, Heart Catheterization, Pacemaker Past Anesthesia/Blood Transfusion Reactions: No Reported Reaction Type of Cardiac Device: Permanent Pacemaker, Unknown Device Placement Date:: 2009 Past Psychological History: No Psychological Hx Reported Smoking Status: Former smoker - Past Family History Mother Family Medical History: No Reported History Medications and Allergies Home Medications Medication Instructions Recorded Confirmed Type Aspirin 81 mg PO DAILY 12/29/13 04/18/19 History amLODIPine BESYLATE [Norvasc] 10 mg PO DAILY 12/29/13 04/18/19 History cloNIDine HCL [Catapres] 0.1 mg PO DAILY 08/25/17 04/18/19 History lisinopriL [Zestril] 20 mg PO DAILY 08/25/17 04/18/19 History EPINEPHrine (Auto Inject) [Epipen] 0.3 mg IM ONCE PRN #2 syringe 04/18/19 Rx predniSONE [Deltasone] 40 mg PO DAILY #8 tab 04/18/19 Rx Atorvastatin [Lipitor] 20 mg PO DAILY 03/04/25 03/04/25 History amLODIPine [Norvasc] 10 mg PO DAILY 03/04/25 03/04/25 History lisinopriL [Zestril] 10 mg PO DAILY 03/04/25 03/04/25 History Allergies Allergy/AdvReac Type Severity Reaction Status Date / Time bee venom protein (honey bee) Allergy Unknown Verified 03/05/25 08:53 Physical Exam Vitals: Vital Signs Temp Pulse Resp BP Pulse Ox FiO2 03/05/25 08:12 40 03/05/25 07:00 49 L 24 100 03/05/25 06:45 50 L 24 100 03/05/25 06:30 49 L 24 100 03/05/25 06:15 50 L 24 100 03/05/25 06:00 50 L 24 100 03/05/25 05:45 49 L 24 100 03/05/25 05:30 49 L 24 100 03/05/25 05:15 49 L 27 H 100 03/05/25 05:00 49 L 24 100 03/05/25 04:45 49 L 26 H 100 03/05/25 04:30 49 L 28 H 100 50 03/05/25 04:15 50 L 29 H 100 03/05/25 04:00 98.6 F 50 L 29 H 100 50 03/05/25 03:45 24 100 03/05/25 03:30 24 100 03/05/25 03:15 49 L 28 H 99/66 100 03/05/25 03:00 49 L 25 H 100 03/05/25 02:45 49 L 25 H 100 03/05/25 02:30 49 L 25 H 100 03/05/25 02:15 49 L 24 100 03/05/25 02:00 49 L 26 H 100 03/05/25 01:45 49 L 24 100 03/05/25 01:30 49 L 25 H 100 03/05/25 01:15 49 L 24 100 03/05/25 01:00 50 L 24 84/61 100 03/05/25 00:45 50 L 24 102/56 100 03/05/25 00:30 49 L 28 H 102/56 100 03/05/25 00:18 50 03/05/25 00:15 49 L 24 102/56 93 L 03/05/25 00:00 99.1 F 49 L 27 H 103/70 100 50 03/04/25 23:45 49 L 28 H 106/57 100 03/04/25 23:30 49 L 24 104/59 100 03/04/25 23:15 49 L 26 H 107/63 100 03/04/25 23:00 49 L 25 H 104/62 100 03/04/25 22:45 49 L 24 102/65 100 03/04/25 22:30 49 L 27 H 99/64 100 03/04/25 22:15 49 L 24 102/69 100 03/04/25 22:04 50 L 26 H 102/69 100 03/04/25 22:00 49 L 24 97/64 100 03/04/25 21:45 49 L 27 H 102/64 100 03/04/25 21:30 49 L 28 H 99/69 100 03/04/25 21:15 49 L 25 H 96/68 100 03/04/25 21:00 49 L 27 H 106/64 100 03/04/25 20:45 50 L 24 102/61 100 03/04/25 20:30 50 L 25 H 110/62 100 03/04/25 20:15 49 L 24 100/65 100 03/04/25 20:08 50 03/04/25 20:00 97.2 F L 50 L 25 H 99/66 100 50 03/04/25 19:45 50 L 26 H 94/64 100 03/04/25 19:30 50 L 27 H 96/60 100 03/04/25 19:15 50 L 24 98/62 100 03/04/25 19:00 49 L 24 104/54 100 03/04/25 18:45 49 L 24 94/60 99 03/04/25 18:30 49 L 24 91/57 100 03/04/25 18:15 49 L 24 85/55 100 03/04/25 18:00 50 L 24 78/50 100 03/04/25 17:45 49 L 24 74/48 100 03/04/25 17:30 49 L 24 86/51 100 03/04/25 17:15 49 L 24 92/59 100 03/04/25 17:00 49 L 24 87/55 100 03/04/25 16:45 50 L 24 85/58 100 03/04/25 16:30 49 L 24 88/58 100 03/04/25 16:15 49 L 24 93/57 100 03/04/25 16:00 97.4 F L 49 L 24 90/56 100 50 03/04/25 15:45 50 L 24 92/59 100 03/04/25 15:33 50 03/04/25 15:30 49 L 24 98/62 100 03/04/25 15:15 50 L 24 94/60 100 03/04/25 15:00 49 L 24 97/55 100 03/04/25 14:45 50 L 25 H 98/58 100 03/04/25 14:43 50 03/04/25 14:30 49 L 28 H 130/78 100 03/04/25 14:15 97 F L 49 L 32 H 135/75 95 03/04/25 13:45 97.0 F L 50 L 32 H 123/71 97 03/04/25 13:22 50 L 30 H 131/70 96 03/04/25 13:15 97.0 F L 49 L 34 H 135/71 97 03/04/25 13:00 52 L 34 H 130/69 96 03/04/25 12:50 50 L 30 H 137/74 96 03/04/25 12:42 49 L 30 H 106/60 95 03/04/25 12:28 50 03/04/25 12:26 50 03/04/25 12:15 49 L 27 H 155/81 100 03/04/25 12:05 49 L 28 H 135/9 100 03/04/25 11:50 120/75 03/04/25 11:44 50 L 31 H 104/66 100 03/04/25 11:35 100 03/04/25 11:31 49 L 22 94/58 87 L 03/04/25 11:20 97.8 F 49 L 20 100/60 93 L Intake and Output 03/04/25 03/05/25 03/05/25 22:59 06:59 14:59 Intake Total 529.0 369.693 73 Output Total 180 660 30 Balance 349.0 -290.307 43 Intake: IV 30 98 13 0.9 NS KVO 30 80 10 Pressure Bag 18 3 Intake, IV Titration 389.0 231.693 Amount Amiodarone 450 mg In 83.0 Dextrose 5% in Water 250 ml @ 0.5 MG/MIN 16.667 mls/hr IV .Q15H [facility] Rx#: [id number] Magnesium Sulfate-D5w Pmx 100 1 gm In Dextrose/Water 1 100ml.bag @ 100 mls/hr IVPB ONCE ONE Rx#: [id number] Norepinephrine 8 mg In 6 41.446 Sodium Chloride 0.9% 250 ml @ 0.03 MCG/KG/MIN 6. 095 mls/hr IV .Q24H [facility] Rx#:[id number] propofoL 1,000 mg In 200 190.247 Empty Bag 1 bag @ 15 MCG/ KG/MIN 9.45 mls/hr IV . [id number] [facility] Rx#:[id number] Other 110 40 60 Output: Gastric Drainage 250 Urine 180 410 30 Other: Voiding Method Indwelling Catheter Indwelling Catheter # Bowel Movements 1 Weight 105 kg 107.1 kg ABP, PAP, CO, CI - Last 8 Hours Arterial Blood Pressure 115/58 Arterial Blood Pressure 124/62 Arterial Blood Pressure 103/54 Arterial Blood Pressure 93/57 Arterial Blood Pressure 93/57 Arterial Blood Pressure 102/53 Arterial Blood Pressure 104/55 Arterial Blood Pressure 125/61 Arterial Blood Pressure 137/66 Arterial Blood Pressure 136/64 Arterial Blood Pressure 130/62 Arterial Blood Pressure 127/62 Arterial Blood Pressure 147/72 Arterial Blood Pressure 123/60 Arterial Blood Pressure 109/58 Arterial Blood Pressure 80/67 Arterial Blood Pressure 84/78 Arterial Blood Pressure 91/53 Arterial Blood Pressure 98/53 Arterial Blood Pressure 88/59 Arterial Blood Pressure 85/50 Arterial Blood Pressure 92/51 Arterial Blood Pressure 92/52 General appearance: The patient is sedated and intubated. HET: Head is normocephalic and atraumatic. Conjunctiva pink. Sclera anicteric. Neck: Supple without lymphadenopathy. Trachea midline. Heart: Regular. Pacemaker. Lungs: Equal expansion, on mechanical ventilation. Abdomen: Soft, nondistended. Skin: No rashes. No jaundice. Extremities: Normal skin color and turgor. No pedal edema. Neurological: Sedated and intubated. Results CBC & Chem 7: 03/05/25 04:45 03/05/25 04:45 Labs: Abnormal Lab Results - Last 24 Hours (Table) 03/04/25 03/04/25 03/04/25 Range/Units 11:41 11:41 11:41 WBC 21.20 H (4.50-10.00) 10*3/uL RBC 4.26 L (4.40-5.60) 10*6/uL MCV 104.5 H (80.0-97.0) fL MCH 35.9 H (27.0-32.0) pg Immature Gran # 0.56 H (0.00-0.04) 10*3/uL Neutrophils # (1.80-7.70) 10*3/uL Neutrophils # (Manual) 12.30 H (1.3-7.7) k/uL Lymphocytes # (Manual) 8.06 H (1.0-4.8) k/uL Monocytes # (0.20-1.00) 10*3/uL Eosinophils # (0.04-0.35) 10*3/uL PT 14.4 H (10.0-12.5) sec INR 1.4 H (<1.2) APTT 20.6 L (22.0-30.0) sec ABG pH (7.35-7.45) ABG pCO2 (35-45) mmHg ABG pO2 (83-108) mmHg ABG HCO3 (21-25) mmol/L ABG Total CO2 (19-24) mmol/L ABG O2 Saturation (94-97) % Sodium (137-145) mmol/L Potassium 3.4 L (3.5-5.1) mmol/L Carbon Dioxide 8 L* (22-30) mmol/L Creatinine (0.66-1.25) mg/dL Glucose 403 H (74-99) mg/dL POC Glucose (mg/dL) (70-110) mg/dL Hemoglobin A1c (<=6.0) % Plasma Lactic Acid Aly (0.7-2.0) mmol/L AST 178 H (17-59) U/L ALT 73 H (4-49) U/L Troponin I (0.000-0.034) ng/mL Total Protein (6.3-8.2) g/dL Albumin (3.5-5.0) g/dL Triglycerides (0.00-149.00) mg/dL Cholesterol (0.00-200.00) mg/dL VLDL Cholesterol, Calc (5.00-40.00) mg/dL HDL Cholesterol (40.00-60.00) mg/dL Ur Specific [place] (1.001-1.035) Urine Protein (Negative) Urine Glucose (UA) (Negative) Urine Blood (Negative) Urine RBC (0-5) /hpf Urine WBC (0-5) /hpf Urine Bacteria (None) /hpf 03/04/25 03/04/25 03/04/25 Range/Units 11:41 12:13 13:58 WBC (4.50-10.00) 10*3/uL RBC (4.40-5.60) 10*6/uL MCV (80.0-97.0) fL MCH (27.0-32.0) pg Immature Gran # (0.00-0.04) 10*3/uL Neutrophils # (1.80-7.70) 10*3/uL Neutrophils # (Manual) (1.3-7.7) k/uL Lymphocytes # (Manual) (1.0-4.8) k/uL Monocytes # (0.20-1.00) 10*3/uL Eosinophils # (0.04-0.35) 10*3/uL PT (10.0-12.5) sec INR (<1.2) APTT (22.0-30.0) sec ABG pH 7.14 L* (7.35-7.45) ABG pCO2 (35-45) mmHg ABG pO2 231 H (83-108) mmHg ABG HCO3 13 L (21-25) mmol/L ABG Total CO2 14 L (19-24) mmol/L ABG O2 Saturation 99.4 H (94-97) % Sodium (137-145) mmol/L Potassium (3.5-5.1) mmol/L Carbon Dioxide (22-30) mmol/L Creatinine (0.66-1.25) mg/dL Glucose (74-99) mg/dL POC Glucose (mg/dL) 429 H (70-110) mg/dL Hemoglobin A1c (<=6.0) % Plasma Lactic Acid Aly (0.7-2.0) mmol/L AST (17-59) U/L ALT (4-49) U/L Troponin I 1.250 H* (0.000-0.034) ng/mL Total Protein (6.3-8.2) g/dL Albumin (3.5-5.0) g/dL Triglycerides (0.00-149.00) mg/dL Cholesterol (0.00-200.00) mg/dL VLDL Cholesterol, Calc (5.00-40.00) mg/dL HDL Cholesterol (40.00-60.00) mg/dL Ur Specific [place] (1.001-1.035) Urine Protein (Negative) Urine Glucose (UA) (Negative) Urine Blood (Negative) Urine RBC (0-5) /hpf Urine WBC (0-5) /hpf Urine Bacteria (None) /hpf 03/04/25 03/04/25 03/04/25 Range/Units 14:12 18:18 18:20 WBC (4.50-10.00) 10*3/uL RBC (4.40-5.60) 10*6/uL MCV (80.0-97.0) fL MCH (27.0-32.0) pg Immature Gran # (0.00-0.04) 10*3/uL Neutrophils # (1.80-7.70) 10*3/uL Neutrophils # (Manual) (1.3-7.7) k/uL Lymphocytes # (Manual) (1.0-4.8) k/uL Monocytes # (0.20-1.00) 10*3/uL Eosinophils # (0.04-0.35) 10*3/uL PT (10.0-12.5) sec INR (<1.2) APTT (22.0-30.0) sec ABG pH 7.34 L (7.35-7.45) ABG pCO2 (35-45) mmHg ABG pO2 52 L* (83-108) mmHg ABG HCO3 20 L (21-25) mmol/L ABG Total CO2 (19-24) mmol/L ABG O2 Saturation 84.1 L (94-97) % Sodium (137-145) mmol/L Potassium (3.5-5.1) mmol/L Carbon Dioxide (22-30) mmol/L Creatinine (0.66-1.25) mg/dL Glucose (74-99) mg/dL POC Glucose (mg/dL) 414 H 365 H (70-110) mg/dL Hemoglobin A1c (<=6.0) % Plasma Lactic Acid Aly (0.7-2.0) mmol/L AST (17-59) U/L ALT (4-49) U/L Troponin I (0.000-0.034) ng/mL Total Protein (6.3-8.2) g/dL Albumin (3.5-5.0) g/dL Triglycerides (0.00-149.00) mg/dL Cholesterol (0.00-200.00) mg/dL VLDL Cholesterol, Calc (5.00-40.00) mg/dL HDL Cholesterol (40.00-60.00) mg/dL Ur Specific [place] (1.001-1.035) Urine Protein (Negative) Urine Glucose (UA) (Negative) Urine Blood (Negative) Urine RBC (0-5) /hpf Urine WBC (0-5) /hpf Urine Bacteria (None) /hpf 03/04/25 03/04/25 03/04/25 Range/Units 21:03 22:49 23:08 WBC (4.50-10.00) 10*3/uL RBC (4.40-5.60) 10*6/uL MCV (80.0-97.0) fL MCH (27.0-32.0) pg Immature Gran # (0.00-0.04) 10*3/uL Neutrophils # (1.80-7.70) 10*3/uL Neutrophils # (Manual) (1.3-7.7) k/uL Lymphocytes # (Manual) (1.0-4.8) k/uL Monocytes # (0.20-1.00) 10*3/uL Eosinophils # (0.04-0.35) 10*3/uL PT (10.0-12.5) sec INR (<1.2) APTT (22.0-30.0) sec ABG pH (7.35-7.45) ABG pCO2 (35-45) mmHg ABG pO2 (83-108) mmHg ABG HCO3 (21-25) mmol/L ABG Total CO2 (19-24) mmol/L ABG O2 Saturation (94-97) % Sodium (137-145) mmol/L Potassium (3.5-5.1) mmol/L Carbon Dioxide (22-30) mmol/L Creatinine (0.66-1.25) mg/dL Glucose (74-99) mg/dL POC Glucose (mg/dL) (70-110) mg/dL Hemoglobin A1c (<=6.0) % Plasma Lactic Acid Aly 2.7 H* (0.7-2.0) mmol/L AST (17-59) U/L ALT (4-49) U/L Troponin I 52.100 H* (0.000-0.034) ng/mL Total Protein (6.3-8.2) g/dL Albumin (3.5-5.0) g/dL Triglycerides (0.00-149.00) mg/dL Cholesterol (0.00-200.00) mg/dL VLDL Cholesterol, Calc (5.00-40.00) mg/dL HDL Cholesterol (40.00-60.00) mg/dL Ur Specific [place] >1.050 H (1.001-1.035) Urine Protein 2+ H (Negative) Urine Glucose (UA) Trace H (Negative) Urine Blood Moderate H (Negative) Urine RBC 30 H (0-5) /hpf Urine WBC 36 H (0-5) /hpf Urine Bacteria Few H (None) /hpf 03/04/25 03/04/25 03/05/25 Range/Units 23:08 23:13 00:40 WBC 16.32 H (4.50-10.00) 10*3/uL RBC 4.17 L (4.40-5.60) 10*6/uL MCV 98.1 H D (80.0-97.0) fL MCH 35.3 H (27.0-32.0) pg Immature Gran # 0.07 H (0.00-0.04) 10*3/uL Neutrophils # 13.30 H (1.80-7.70) 10*3/uL Neutrophils # (Manual) (1.3-7.7) k/uL Lymphocytes # (Manual) (1.0-4.8) k/uL Monocytes # 1.54 H (0.20-1.00) 10*3/uL Eosinophils # 0.00 L (0.04-0.35) 10*3/uL PT (10.0-12.5) sec INR (<1.2) APTT (22.0-30.0) sec ABG pH (7.35-7.45) ABG pCO2 (35-45) mmHg ABG pO2 (83-108) mmHg ABG HCO3 (21-25) mmol/L ABG Total CO2 (19-24) mmol/L ABG O2 Saturation (94-97) % Sodium 134 L (137-145) mmol/L Potassium (3.5-5.1) mmol/L Carbon Dioxide 16 L (22-30) mmol/L Creatinine 1.51 H (0.66-1.25) mg/dL Glucose 303 H (74-99) mg/dL POC Glucose (mg/dL) 291 H (70-110) mg/dL Hemoglobin A1c (<=6.0) % Plasma Lactic Acid Aly (0.7-2.0) mmol/L AST 191 H (17-59) U/L ALT 67 H (4-49) U/L Troponin I (0.000-0.034) ng/mL Total Protein 6.2 L (6.3-8.2) g/dL Albumin 3.4 L (3.5-5.0) g/dL Triglycerides 363.00 H (0.00-149.00) mg/dL Cholesterol 228.00 H (0.00-200.00) mg/dL VLDL Cholesterol, Calc 72.60 H (5.00-40.00) mg/dL HDL Cholesterol 38.80 L (40.00-60.00) mg/dL Ur Specific [place] (1.001-1.035) Urine Protein (Negative) Urine Glucose (UA) (Negative) Urine Blood (Negative) Urine RBC (0-5) /hpf Urine WBC (0-5) /hpf Urine Bacteria (None) /hpf 03/05/25 03/05/25 03/05/25 Range/Units 02:15 04:45 04:45 WBC 16.19 H (4.50-10.00) 10*3/uL RBC 4.32 L (4.40-5.60) 10*6/uL MCV 97.5 H (80.0-97.0) fL MCH 34.3 H (27.0-32.0) pg Immature Gran # (0.00-0.04) 10*3/uL Neutrophils # 12.37 H (1.80-7.70) 10*3/uL Neutrophils # (Manual) (1.3-7.7) k/uL Lymphocytes # (Manual) (1.0-4.8) k/uL Monocytes # 1.69 H (0.20-1.00) 10*3/uL Eosinophils # 0.00 L (0.04-0.35) 10*3/uL PT (10.0-12.5) sec INR (<1.2) APTT (22.0-30.0) sec ABG pH (7.35-7.45) ABG pCO2 (35-45) mmHg ABG pO2 (83-108) mmHg ABG HCO3 (21-25) mmol/L ABG Total CO2 (19-24) mmol/L ABG O2 Saturation (94-97) % Sodium (137-145) mmol/L Potassium (3.5-5.1) mmol/L Carbon Dioxide (22-30) mmol/L Creatinine (0.66-1.25) mg/dL Glucose (74-99) mg/dL POC Glucose (mg/dL) (70-110) mg/dL Hemoglobin A1c 9.3 H (<=6.0) % Plasma Lactic Acid Aly 2.6 H* (0.7-2.0) mmol/L AST (17-59) U/L ALT (4-49) U/L Troponin I (0.000-0.034) ng/mL Total Protein (6.3-8.2) g/dL Albumin (3.5-5.0) g/dL Triglycerides (0.00-149.00) mg/dL Cholesterol (0.00-200.00) mg/dL VLDL Cholesterol, Calc (5.00-40.00) mg/dL HDL Cholesterol (40.00-60.00) mg/dL Ur Specific [place] (1.001-1.035) Urine Protein (Negative) Urine Glucose (UA) (Negative) Urine Blood (Negative) Urine RBC (0-5) /hpf Urine WBC (0-5) /hpf Urine Bacteria (None) /hpf 03/05/25 03/05/25 03/05/25 Range/Units 04:45 05:17 05:40 WBC (4.50-10.00) 10*3/uL RBC (4.40-5.60) 10*6/uL MCV (80.0-97.0) fL MCH (27.0-32.0) pg Immature Gran # (0.00-0.04) 10*3/uL Neutrophils # (1.80-7.70) 10*3/uL Neutrophils # (Manual) (1.3-7.7) k/uL Lymphocytes # (Manual) (1.0-4.8) k/uL Monocytes # (0.20-1.00) 10*3/uL Eosinophils # (0.04-0.35) 10*3/uL PT (10.0-12.5) sec INR (<1.2) APTT (22.0-30.0) sec ABG pH (7.35-7.45) ABG pCO2 32 L (35-45) mmHg ABG pO2 173 H (83-108) mmHg ABG HCO3 (21-25) mmol/L ABG Total CO2 (19-24) mmol/L ABG O2 Saturation 99.9 H (94-97) % Sodium 135 L (137-145) mmol/L Potassium (3.5-5.1) mmol/L Carbon Dioxide 19 L (22-30) mmol/L Creatinine 1.63 H (0.66-1.25) mg/dL Glucose 269 H (74-99) mg/dL POC Glucose (mg/dL) 273 H (70-110) mg/dL Hemoglobin A1c (<=6.0) % Plasma Lactic Acid Aly (0.7-2.0) mmol/L AST (17-59) U/L ALT (4-49) U/L Troponin I (0.000-0.034) ng/mL Total Protein (6.3-8.2) g/dL Albumin (3.5-5.0) g/dL Triglycerides (0.00-149.00) mg/dL Cholesterol (0.00-200.00) mg/dL VLDL Cholesterol, Calc (5.00-40.00) mg/dL HDL Cholesterol (40.00-60.00) mg/dL Ur Specific [place] (1.001-1.035) Urine Protein (Negative) Urine Glucose (UA) (Negative) Urine Blood (Negative) Urine RBC (0-5) /hpf Urine WBC (0-5) /hpf Urine Bacteria (None) /hpf Comments: Abdominal ultrasound reports hepatic steatosis with hepatomegaly, cholelithiasis. Chest CT angiogram reports limited by motion artifact, no definite been evidence of pulmonary medicine. Findings most consistent with CHF. Cholelithiasis. Moderate emphysematous changes Assessment and Plan (1) GI bleed Narrative/Plan: 69-year-old male brought into the emergency department and admitted after patient was witnessed collapsing and being unresponsive for EMS who was noted to be in V. tach and underwent cardiac arrest CPR with intubation in the field as well as in the emergency department. Patient currently intubated and sedated, was reported to have maroon-colored output from OG tube that was positive gastric occult and concern for possible upper GI bleed. Patient's hemoglobin stable, without any further reported output however suction was clamped. Patient without abdominal distention. Remains sedated and intubated with limited history. Possibility there was injury during intubation and patient underwent intubation twice. Will continue to monitor for upper GI bleed. Continue with medical management Protonix 40 mg twice daily. Current Visit: Yes Status: Acute Code(s): K92.2 - GASTROINTESTINAL HEMORRHAGE, UNSPECIFIED SNOMED Code(s): 14545927 (2) Elevated LFTs Narrative/Plan: Likely secondary to acute ischemic hepatitis from shock liver Current Visit: Yes Status: Acute Code(s): R79.89 - OTHER SPECIFIED ABNORMAL FINDINGS OF BLOOD CHEMISTRY SNOMED Code(s): 498699695 (3) Cardiac arrest Current Visit: Yes Status: Acute Code(s): I46.9 - CARDIAC ARREST, CAUSE UNSPECIFIED SNOMED Code(s): 227433063 (4) History of pacemaker Current Visit: Yes Status: Acute Code(s): Z95.0 - PRESENCE OF CARDIAC PACEMAKER SNOMED Code(s): 655207497 Plan: 1. Continue symptomatic and supportive care 2. Continue Protonix 40 mg twice daily 3. Continue to monitor for signs of upper GI bleed. No plans at this time for upper endoscopy 4. Daily CBC, transfuse for hemoglobin less than 7 5. Rest of medical management per medical team Thank you for this consultation, we will continue to follow. Dr. Kim Hadley I agree with the dictator's note, documented as a scribe by Jenn Lo.
[2025-03-05 12:28] LABS: Glucose,Whole Blood 271 mg/dL (70-110)
--- NOTE | 2025-03-05 13:08 | CA ---
Transthoracic Echo Report Name: Lawrence Rincon Age: 69 Gender: M : 1955 Exam Date: 03/05/2025 08:59 Exam Location: [facility] Ht (in): 72 Wt (lb): 231 Ordering Physician: Christian Arriola MD Attending/Referring Phys: Artificial Flower Maker Cee Solorzano RDCS Procedure CPT: Indications: SHORTNESS OF BREATH Cardiac Hx: Hx open heart, pacemaker; cardiac arrest. Pt intubated Technical Quality: Very technically difficult study Contrast 1: Definity Total Dose (mL): 6 Contrast 2: Total Dose (mL): MEASUREMENTS (Male / Female) Normal Values 2D ECHO LV Diastolic Diameter PLAX 5.2 cm 4.2 - 5.9 / 3.9 - 5.3 cm LV Systolic Diameter PLAX 4.2 cm IVS Diastolic Thickness 0.8 cm 0.6 - 1.0 / 0.6 - 0.9 cm LVPW Diastolic Thickness 1.1 cm 0.6 - 1.0 / 0.6 - 0.9 cm LV Relative Wall Thickness 0.4 LV Diastolic Volume MOD BP 64.5 cm??? 67 - 155 / 56 - 104 cm??? LV Systolic Volume MOD BP 37.4 cm??? 22 - 58 / 19 - 49 cm??? LV Ejection Fraction MOD BP 42.0 % >= 55 % LV Cardiac Index MOD BP 579.8 cm???/min???m??? LV Diastolic Volume MOD 4C 74.2 cm??? LV Systolic Volume MOD 4C 40.4 cm??? LV Ejection Fraction MOD 4C 45.6 % LV Cardiac Index MOD 4C 724.8 cm???/min???m??? LV Diastolic Length 4C 7.7 cm LV Systolic Length 4C 7.0 cm LV Diastolic Volume MOD 2C 48.6 cm??? LV Systolic Volume MOD 2C 31.3 cm??? LV Ejection Fraction MOD 2C 35.6 % LV Cardiac Index MOD 2C 370.7 cm???/min???m??? LV Diastolic Length 2C 6.6 cm LV Systolic Length 2C 6.2 cm LA Volume 50.8 cm??? 18 - 58 / 22 - 52 cm??? LA Volume Index 21.8 cm???/m??? 16 - 28 cm???/m??? DOPPLER AV Peak Velocity 149.2 cm/s AV Peak Gradient 8.9 mmHg AV Mean Velocity 117.3 cm/s AV Mean Gradient 5.8 mmHg AV Velocity Time Integral 35.3 cm LVOT Peak Velocity 98.9 cm/s LVOT Peak Gradient 3.9 mmHg LVOT Velocity Time Integral 21.0 cm MV Area PHT 2.6 cm??? Mitral E Point Velocity 71.6 cm/s Mitral A Point Velocity 67.1 cm/s Mitral E to A Ratio 1.1 MV Deceleration Time 295.7 ms FINDINGS Left Ventricle Left ventricular ejection fraction is estimated at 35-40 %. Moderately decreased left ventricular ejection fraction with regional variability. Left ventricular cavity size normal. Right Ventricle Right ventricle not well visualized. Unable to estimate the right ventricular systolic pressure. Right Atrium Right atrium not well visualized. Left Atrium Normal left atrial size. Mitral Valve Structurally normal mitral valve. No evidence for mitral valve prolapse. No mitral stenosis. Trace mitral regurgitation. Aortic Valve Aortic valve not well visualized. No aortic valve stenosis or regurgitation. Tricuspid Valve Tricuspid valve not well visualized. Pulmonic Valve Pulmonic valve not well visualized. Pericardium No pericardial effusion. Aorta Aortic root and proximal ascending aorta not well visualized. CONCLUSIONS Technically difficult study for interpretation Impaired LV function with EF at 35 to 40% Poorly visualized intracardiac valves Previewed by: Dr. Brock Alfaro MD (Electronically Signed) Final Date: 05 March 2025 13:07
[2025-03-05] MEDS: ATORVASTATIN 40 MG TAB PO SCH (13:28)
[2025-03-05 13:32] LABS: Glucose,Whole Blood 252 mg/dL (70-110)
--- NOTE | 2025-03-05 13:33 | P.HPIM ---
History of Present Illness H&P Date: 03/04/25 History of present illness; patient is a 69-year-old gentleman with past medical history significant for coronary artery disease who presented to the ER after having a witnessed cardiac arrest. History is limited and most of is obtained from the EMR. Apparently patient had called EMS for his brother who had fallen, when EMS came patient collapsed while helping his brother and EMS. EMS started working on the patient and found him to be in V-fib, CPR was initiated, patient was intubated and received 3 rounds of epi, patient also shocked 3 times. Patient was down for at least 20 minutes before the return of ROSC. En route to ER, patient self extubated but patient was later intubated again by ER physician EKG done in the ER showed heart rate of , no ST segment elevation or depression seen, no T-wave inversions seen. Chest x-ray done in the ER ET tube 5.3 cm above the karen, no acute pulmonary process CT head done showed no acute intracranial process CT cervical spine done showed no acute fracture CTA chest done showed no evidence of pneumonia, cholelithiasis seen. Patient admitted to ICU REVIEW OF SYSTEMS: Review of system cannot be as patient is intubated PHYSICAL EXAMINATION: GENERAL: The patient is intubated HEENT: Pupils are round and equally reacting to light. EOMI. No scleral icterus. No conjunctival pallor. Normocephalic, atraumatic. No pharyngeal erythema. No t hyromegaly. CARDIOVASCULAR: S1 and S2 present. No murmurs, rubs, or gallops. PULMONARY: Chest is clear to auscultation, no wheezing or crackles. ABDOMEN: Soft, nontender, nondistended, normoactive bowel sounds. No palpable organomegaly. MUSCULOSKELETAL: No joint swelling or deformity. EXTREMITIES: No cyanosis, clubbing, or pedal edema. NEUROLOGICAL: Intubated SKIN: No rashes. Assessment and plan Cardiac arrest V-fib arrest Acute systolic CHF Cardiomyopathy Cardiogenic shock Acute hypoxic respiratory failure NSTEMI Acute kidney injury, cardiorenal Acute leukocytosis, likely reactive Hypokalemia, replaced Hyperglycemia Acute transaminitis History of coronary artery disease History of diabetes mellitus Monitor vital signs Monitor CBC Monitor CMP Continue telemetry monitoring Ordered Vent management Ordered serial troponin Ordered amiodarone drip Ordered propofol Ordered ultrasound abdomen Ordered 2D echo Ordered blood glucose monitoring, sliding scale insulin ICU consulted Cardiology consulted Labs and medication were reviewed.. Continue same treatment. Continue with symptomatic treatment. Resume home medication. Monitor labs and vitals. DVT and GI prophylaxis. Further recommendations as per clinical course of the patient Dictation was produced using [employer] dictation software. please excuse any grammatical, word or spelling errors. Past Medical History Past Medical History: Unable to Obtain Past Surgical History: Unable to Obtain - Past Family History Mother Family Medical History: No Reported History Medications and Allergies Home Medications Medication Instructions Recorded Confirmed Type Aspirin 81 mg PO DAILY 12/29/13 04/18/19 History amLODIPine BESYLATE [Norvasc] 10 mg PO DAILY 12/29/13 04/18/19 History cloNIDine HCL [Catapres] 0.1 mg PO DAILY 08/25/17 04/18/19 History lisinopriL [Zestril] 20 mg PO DAILY 08/25/17 04/18/19 History EPINEPHrine (Auto Inject) [Epipen] 0.3 mg IM ONCE PRN #2 syringe 04/18/19 Rx predniSONE [Deltasone] 40 mg PO DAILY #8 tab 04/18/19 Rx Atorvastatin [Lipitor] 20 mg PO DAILY 03/04/25 03/04/25 History amLODIPine [Norvasc] 10 mg PO DAILY 03/04/25 03/04/25 History lisinopriL [Zestril] 10 mg PO DAILY 03/04/25 03/04/25 History Allergies Allergy/AdvReac Type Severity Reaction Status Date / Time bee venom protein (honey bee) Allergy Unknown Verified 03/05/25 08:53 Physical Exam Vitals: Vital Signs Temp Pulse Resp BP Pulse Ox FiO2 03/04/25 14:43 50 03/04/25 14:30 49 L 28 H 130/78 100 03/04/25 14:15 97 F L 49 L 32 H 135/75 95 03/04/25 13:45 97.0 F L 50 L 32 H 123/71 97 03/04/25 13:22 50 L 30 H 131/70 96 03/04/25 13:15 97.0 F L 49 L 34 H 135/71 97 03/04/25 13:00 52 L 34 H 130/69 96 03/04/25 12:50 50 L 30 H 137/74 96 03/04/25 12:42 49 L 30 H 106/60 95 03/04/25 12:28 50 03/04/25 12:26 50 03/04/25 12:15 49 L 27 H 155/81 100 03/04/25 12:05 49 L 28 H 135/9 100 03/04/25 11:50 120/75 03/04/25 11:44 50 L 31 H 104/66 100 03/04/25 11:35 100 03/04/25 11:31 49 L 22 94/58 87 L 03/04/25 11:20 97.8 F 49 L 20 100/60 93 L Intake and Output 03/04/25 03/04/25 03/04/25 06:59 14:59 22:59 Intake Total 47.618 Output Total 10 Balance 37.618 Intake: Intake, IV Titration 47.618 Amount propofoL 1,000 mg In 47.618 Empty Bag 1 bag @ 15 MCG/ KG/MIN 9.45 mls/hr IV . [id number] [facility] Rx#:[id number] Output: Urine 10 Uretheral (Gutierrez) 10 Other: Voiding Method Indwelling Catheter Weight 105 kg Results CBC & Chem 7: 03/05/25 04:45 03/05/25 04:45 Labs: Abnormal Lab Results - Last 24 Hours (Table) 03/04/25 03/04/25 03/04/25 Range/Units 11:41 11:41 11:41 WBC 21.20 H (4.50-10.00) 10*3/uL RBC 4.26 L (4.40-5.60) 10*6/uL MCV 104.5 H (80.0-97.0) fL MCH 35.9 H (27.0-32.0) pg Immature Gran # 0.56 H (0.00-0.04) 10*3/uL Neutrophils # (Manual) 12.30 H (1.3-7.7) k/uL Lymphocytes # (Manual) 8.06 H (1.0-4.8) k/uL PT 14.4 H (10.0-12.5) sec INR 1.4 H (<1.2) APTT 20.6 L (22.0-30.0) sec ABG pH (7.35-7.45) ABG pO2 (83-108) mmHg ABG HCO3 (21-25) mmol/L ABG Total CO2 (19-24) mmol/L ABG O2 Saturation (94-97) % Potassium 3.4 L (3.5-5.1) mmol/L Carbon Dioxide 8 L* (22-30) mmol/L Glucose 403 H (74-99) mg/dL POC Glucose (mg/dL) (70-110) mg/dL AST 178 H (17-59) U/L ALT 73 H (4-49) U/L Troponin I (0.000-0.034) ng/mL 03/04/25 03/04/25 03/04/25 Range/Units 11:41 12:13 13:58 WBC (4.50-10.00) 10*3/uL RBC (4.40-5.60) 10*6/uL MCV (80.0-97.0) fL MCH (27.0-32.0) pg Immature Gran # (0.00-0.04) 10*3/uL Neutrophils # (Manual) (1.3-7.7) k/uL Lymphocytes # (Manual) (1.0-4.8) k/uL PT (10.0-12.5) sec INR (<1.2) APTT (22.0-30.0) sec ABG pH 7.14 L* (7.35-7.45) ABG pO2 231 H (83-108) mmHg ABG HCO3 13 L (21-25) mmol/L ABG Total CO2 14 L (19-24) mmol/L ABG O2 Saturation 99.4 H (94-97) % Potassium (3.5-5.1) mmol/L Carbon Dioxide (22-30) mmol/L Glucose (74-99) mg/dL POC Glucose (mg/dL) 429 H (70-110) mg/dL AST (17-59) U/L ALT (4-49) U/L Troponin I 1.250 H* (0.000-0.034) ng/mL 03/04/25 Range/Units 14:12 WBC (4.50-10.00) 10*3/uL RBC (4.40-5.60) 10*6/uL MCV (80.0-97.0) fL MCH (27.0-32.0) pg Immature Gran # (0.00-0.04) 10*3/uL Neutrophils # (Manual) (1.3-7.7) k/uL Lymphocytes # (Manual) (1.0-4.8) k/uL PT (10.0-12.5) sec INR (<1.2) APTT (22.0-30.0) sec ABG pH (7.35-7.45) ABG pO2 (83-108) mmHg ABG HCO3 (21-25) mmol/L ABG Total CO2 (19-24) mmol/L ABG O2 Saturation (94-97) % Potassium (3.5-5.1) mmol/L Carbon Dioxide (22-30) mmol/L Glucose (74-99) mg/dL POC Glucose (mg/dL) 414 H (70-110) mg/dL AST (17-59) U/L ALT (4-49) U/L Troponin I (0.000-0.034) ng/mL
--- NOTE | 2025-03-05 13:35 | P.PN ---
Subjective Progress Note Date: 03/05/25 patient is a 69-year-old gentleman with past medical history significant for coronary artery disease who presented to the ER after having a witnessed cardiac arrest. History is limited and most of is obtained from the EMR. Apparently patient had called EMS for his brother who had fallen, when EMS came patient collapsed while helping his brother and EMS. EMS started working on the patient and found him to be in V-fib, CPR was initiated, patient was intubated and received 3 rounds of epi, patient also shocked 3 times. Patient was down for at least 20 minutes before the return of ROSC. En route to ER, patient self extubated but patient was later intubated again by ER physician EKG done in the ER showed heart rate of , no ST segment elevation or depression seen, no T-wave inversions seen. Chest x-ray done in the ER ET tube 5.3 cm above the karen, no acute pulmonary process CT head done showed no acute intracranial process CT cervical spine done showed no acute fracture CTA chest done showed no evidence of pneumonia, cholelithiasis seen. Patient admitted to ICU 03/05. Patient seen and examined. Patient currently on mechanical ventilation. Patient is currently on Levophed, amiodarone. Patient overnight had some maroon-colored oozing from his OG tube REVIEW OF SYSTEMS: Review of system cannot be as patient is intubated PHYSICAL EXAMINATION: GENERAL: The patient is intubated HEENT: Pupils are round and equally reacting to light. EOMI. No scleral icterus. No conjunctival pallor. Normocephalic, atraumatic. No pharyngeal erythema. No thyromegaly. CARDIOVASCULAR: S1 and S2 present. No murmurs, rubs, or gallops. PULMONARY: Chest is clear to auscultation, no wheezing or crackles. ABDOMEN: Soft, nontender, nondistended, normoactive bowel sounds. No palpable organomegaly. MUSCULOSKELETAL: No joint swelling or deformity. EXTREMITIES: No cyanosis, clubbing, or pedal edema. NEUROLOGICAL: Intubated SKIN: No rashes. Assessment and plan Cardiac arrest V-fib arrest Acute systolic CHF Cardiomyopathy Cardiogenic shock Acute hypoxic respiratory failure NSTEMI Acute kidney injury, cardiorenal Acute leukocytosis, likely reactive Hypokalemia, replaced Hyperglycemia Acute transaminitis History of coronary artery disease History of diabetes mellitus Monitor vital signs Monitor CBC Monitor CMP Continue telemetry monitoring Continue vent management Continue amiodarone drip Continue IV Levophed Continue IV Protonix Cardiology following, planning cardiac cath once neurological status is determined Critical care following Labs and medication were reviewed.. Continue same treatment. Continue with symptomatic treatment. Resume home medication. Monitor labs and vitals. DVT and GI prophylaxis. Further recommendations as per clinical course of the patient Dictation was produced using [employer] dictation software. please excuse any grammatical, word or spelling errors. Objective - Vital Signs Vital signs: Vital Signs Temp 99.2 F 03/05/25 08:00 Pulse 49 L 03/05/25 10:00 Resp 27 H 03/05/25 10:00 BP 99/66 03/05/25 03:15 Pulse Ox 100 03/05/25 10:00 FiO2 40 03/05/25 11:39 Intake & Output 03/04/25 03/05/25 03/05/25 18:59 06:59 18:59 Intake Total 476.400 522.293 199 Output Total 85 765 90 Balance 391.400 -242.707 109 Weight 105 kg 107.1 kg Intake: IV 128 39 0.9 NS KVO 110 30 Pressure Bag 18 9 Intake, IV Titration 366.400 354.293 100 Amount Amiodarone 450 mg In 66.4 16.6 Dextrose 5% in Water 250 ml @ 0.5 MG/MIN 16.667 mls/hr IV .Q15H [facility] Rx#: [id number] Magnesium Sulfate-D5w Pmx 100 1 gm In Dextrose/Water 1 100ml.bag @ 100 mls/hr IVPB ONCE ONE Rx#: [id number] Norepinephrine 8 mg In 47.446 Sodium Chloride 0.9% 250 ml @ 0.03 MCG/KG/MIN 6. 095 mls/hr IV .Q24H [facility] Rx#:[id number] propofoL 1,000 mg In 200.000 290.247 100 Empty Bag 1 bag @ 15 MCG/ KG/MIN 9.45 mls/hr IV . [id number] [facility] Rx#:[id number] Other 110 40 60 Output: Gastric Drainage 250 Urine 85 515 90 Uretheral (Gutierrez) 10 Other: Voiding Method Indwelling Catheter Indwelling Catheter # Bowel Movements 1 1 ABP, PAP, CO, CI - Last Documented Arterial Blood Pressure 126/67 - Labs CBC & Chem 7: 03/05/25 04:45 03/05/25 04:45 Labs: Abnormal Lab Results - Last 24 Hours (Table) 03/04/25 03/04/25 03/04/25 Range/Units 13:58 14:12 18:18 WBC (4.50-10.00) 10*3/uL RBC (4.40-5.60) 10*6/uL MCV (80.0-97.0) fL MCH (27.0-32.0) pg Immature Gran # (0.00-0.04) 10*3/uL Neutrophils # (1.80-7.70) 10*3/uL Monocytes # (0.20-1.00) 10*3/uL Eosinophils # (0.04-0.35) 10*3/uL ABG pH (7.35-7.45) ABG pCO2 (35-45) mmHg ABG pO2 (83-108) mmHg ABG HCO3 (21-25) mmol/L ABG O2 Saturation (94-97) % Sodium (137-145) mmol/L Carbon Dioxide (22-30) mmol/L Creatinine (0.66-1.25) mg/dL Glucose (74-99) mg/dL POC Glucose (mg/dL) 429 H 414 H 365 H (70-110) mg/dL Hemoglobin A1c (<=6.0) % Plasma Lactic Acid Aly (0.7-2.0) mmol/L AST (17-59) U/L ALT (4-49) U/L Troponin I (0.000-0.034) ng/mL Total Protein (6.3-8.2) g/dL Albumin (3.5-5.0) g/dL Triglycerides (0.00-149.00) mg/dL Cholesterol (0.00-200.00) mg/dL VLDL Cholesterol, Calc (5.00-40.00) mg/dL HDL Cholesterol (40.00-60.00) mg/dL Ur Specific Henriette (1.001-1.035) Urine Protein (Negative) Urine Glucose (UA) (Negative) Urine Blood (Negative) Urine RBC (0-5) /hpf Urine WBC (0-5) /hpf Urine Bacteria (None) /hpf 03/04/25 03/04/25 03/04/25 Range/Units 18:20 21:03 22:49 WBC (4.50-10.00) 10*3/uL RBC (4.40-5.60) 10*6/uL MCV (80.0-97.0) fL MCH (27.0-32.0) pg Immature Gran # (0.00-0.04) 10*3/uL Neutrophils # (1.80-7.70) 10*3/uL Monocytes # (0.20-1.00) 10*3/uL Eosinophils # (0.04-0.35) 10*3/uL ABG pH 7.34 L (7.35-7.45) ABG pCO2 (35-45) mmHg ABG pO2 52 L* (83-108) mmHg ABG HCO3 20 L (21-25) mmol/L ABG O2 Saturation 84.1 L (94-97) % Sodium (137-145) mmol/L Carbon Dioxide (22-30) mmol/L Creatinine (0.66-1.25) mg/dL Glucose (74-99) mg/dL POC Glucose (mg/dL) (70-110) mg/dL Hemoglobin A1c (<=6.0) % Plasma Lactic Acid Aly (0.7-2.0) mmol/L AST (17-59) U/L ALT (4-49) U/L Troponin I 52.100 H* (0.000-0.034) ng/mL Total Protein (6.3-8.2) g/dL Albumin (3.5-5.0) g/dL Triglycerides (0.00-149.00) mg/dL Cholesterol (0.00-200.00) mg/dL VLDL Cholesterol, Calc (5.00-40.00) mg/dL HDL Cholesterol (40.00-60.00) mg/dL Ur Specific Henriette >1.050 H (1.001-1.035) Urine Protein 2+ H (Negative) Urine Glucose (UA) Trace H (Negative) Urine Blood Moderate H (Negative) Urine RBC 30 H (0-5) /hpf Urine WBC 36 H (0-5) /hpf Urine Bacteria Few H (None) /hpf 03/04/25 03/04/25 03/04/25 Range/Units 23:08 23:08 23:13 WBC (4.50-10.00) 10*3/uL RBC (4.40-5.60) 10*6/uL MCV (80.0-97.0) fL MCH (27.0-32.0) pg Immature Gran # (0.00-0.04) 10*3/uL Neutrophils # (1.80-7.70) 10*3/uL Monocytes # (0.20-1.00) 10*3/uL Eosinophils # (0.04-0.35) 10*3/uL ABG pH (7.35-7.45) ABG pCO2 (35-45) mmHg ABG pO2 (83-108) mmHg ABG HCO3 (21-25) mmol/L ABG O2 Saturation (94-97) % Sodium 134 L (137-145) mmol/L Carbon Dioxide 16 L (22-30) mmol/L Creatinine 1.51 H (0.66-1.25) mg/dL Glucose 303 H (74-99) mg/dL POC Glucose (mg/dL) 291 H (70-110) mg/dL Hemoglobin A1c (<=6.0) % Plasma Lactic Acid Aly 2.7 H* (0.7-2.0) mmol/L AST 191 H (17-59) U/L ALT 67 H (4-49) U/L Troponin I (0.000-0.034) ng/mL Total Protein 6.2 L (6.3-8.2) g/dL Albumin 3.4 L (3.5-5.0) g/dL Triglycerides 363.00 H (0.00-149.00) mg/dL Cholesterol 228.00 H (0.00-200.00) mg/dL VLDL Cholesterol, Calc 72.60 H (5.00-40.00) mg/dL HDL Cholesterol 38.80 L (40.00-60.00) mg/dL Ur Specific Henriette (1.001-1.035) Urine Protein (Negative) Urine Glucose (UA) (Negative) Urine Blood (Negative) Urine RBC (0-5) /hpf Urine WBC (0-5) /hpf Urine Bacteria (None) /hpf 03/05/25 03/05/25 03/05/25 Range/Units 00:40 02:15 04:45 WBC 16.32 H (4.50-10.00) 10*3/uL RBC 4.17 L (4.40-5.60) 10*6/uL MCV 98.1 H D (80.0-97.0) fL MCH 35.3 H (27.0-32.0) pg Immature Gran # 0.07 H (0.00-0.04) 10*3/uL Neutrophils # 13.30 H (1.80-7.70) 10*3/uL Monocytes # 1.54 H (0.20-1.00) 10*3/uL Eosinophils # 0.00 L (0.04-0.35) 10*3/uL ABG pH (7.35-7.45) ABG pCO2 (35-45) mmHg ABG pO2 (83-108) mmHg ABG HCO3 (21-25) mmol/L ABG O2 Saturation (94-97) % Sodium (137-145) mmol/L Carbon Dioxide (22-30) mmol/L Creatinine (0.66-1.25) mg/dL Glucose (74-99) mg/dL POC Glucose (mg/dL) (70-110) mg/dL Hemoglobin A1c 9.3 H (<=6.0) % Plasma Lactic Acid Aly 2.6 H* (0.7-2.0) mmol/L AST (17-59) U/L ALT (4-49) U/L Troponin I (0.000-0.034) ng/mL Total Protein (6.3-8.2) g/dL Albumin (3.5-5.0) g/dL Triglycerides (0.00-149.00) mg/dL Cholesterol (0.00-200.00) mg/dL VLDL Cholesterol, Calc (5.00-40.00) mg/dL HDL Cholesterol (40.00-60.00) mg/dL Ur Specific Henriette (1.001-1.035) Urine Protein (Negative) Urine Glucose (UA) (Negative) Urine Blood (Negative) Urine RBC (0-5) /hpf Urine WBC (0-5) /hpf Urine Bacteria (None) /hpf 03/05/25 03/05/25 03/05/25 Range/Units 04:45 04:45 05:17 WBC 16.19 H (4.50-10.00) 10*3/uL RBC 4.32 L (4.40-5.60) 10*6/uL MCV 97.5 H (80.0-97.0) fL MCH 34.3 H (27.0-32.0) pg Immature Gran # (0.00-0.04) 10*3/uL Neutrophils # 12.37 H (1.80-7.70) 10*3/uL Monocytes # 1.69 H (0.20-1.00) 10*3/uL Eosinophils # 0.00 L (0.04-0.35) 10*3/uL ABG pH (7.35-7.45) ABG pCO2 32 L (35-45) mmHg ABG pO2 173 H (83-108) mmHg ABG HCO3 (21-25) mmol/L ABG O2 Saturation 99.9 H (94-97) % Sodium 135 L (137-145) mmol/L Carbon Dioxide 19 L (22-30) mmol/L Creatinine 1.63 H (0.66-1.25) mg/dL Glucose 269 H (74-99) mg/dL POC Glucose (mg/dL) (70-110) mg/dL Hemoglobin A1c (<=6.0) % Plasma Lactic Acid Aly (0.7-2.0) mmol/L AST (17-59) U/L ALT (4-49) U/L Troponin I (0.000-0.034) ng/mL Total Protein (6.3-8.2) g/dL Albumin (3.5-5.0) g/dL Triglycerides (0.00-149.00) mg/dL Cholesterol (0.00-200.00) mg/dL VLDL Cholesterol, Calc (5.00-40.00) mg/dL HDL Cholesterol (40.00-60.00) mg/dL Ur Specific Henriette (1.001-1.035) Urine Protein (Negative) Urine Glucose (UA) (Negative) Urine Blood (Negative) Urine RBC (0-5) /hpf Urine WBC (0-5) /hpf Urine Bacteria (None) /hpf 03/05/25 03/05/25 03/05/25 Range/Units 05:40 12:27 13:31 WBC (4.50-10.00) 10*3/uL RBC (4.40-5.60) 10*6/uL MCV (80.0-97.0) fL MCH (27.0-32.0) pg Immature Gran # (0.00-0.04) 10*3/uL Neutrophils # (1.80-7.70) 10*3/uL Monocytes # (0.20-1.00) 10*3/uL Eosinophils # (0.04-0.35) 10*3/uL ABG pH (7.35-7.45) ABG pCO2 (35-45) mmHg ABG pO2 (83-108) mmHg ABG HCO3 (21-25) mmol/L ABG O2 Saturation (94-97) % Sodium (137-145) mmol/L Carbon Dioxide (22-30) mmol/L Creatinine (0.66-1.25) mg/dL Glucose (74-99) mg/dL POC Glucose (mg/dL) 273 H 271 H 252 H (70-110) mg/dL Hemoglobin A1c (<=6.0) % Plasma Lactic Acid Aly (0.7-2.0) mmol/L AST (17-59) U/L ALT (4-49) U/L Troponin I (0.000-0.034) ng/mL Total Protein (6.3-8.2) g/dL Albumin (3.5-5.0) g/dL Triglycerides (0.00-149.00) mg/dL Cholesterol (0.00-200.00) mg/dL VLDL Cholesterol, Calc (5.00-40.00) mg/dL HDL Cholesterol (40.00-60.00) mg/dL Ur Specific Henriette (1.001-1.035) Urine Protein (Negative) Urine Glucose (UA) (Negative) Urine Blood (Negative) Urine RBC (0-5) /hpf Urine WBC (0-5) /hpf Urine Bacteria (None) /hpf
--- NOTE | 2025-03-05 15:23 | P.PCN ---
Date of Procedure: 03/05/25 Preoperative Diagnosis: Cardiac arrest Postoperative Diagnosis: cardiac arrest Procedure(s) Performed: Triple-lumen catheter insertion Anesthesia: local Pathology: other Condition: critical Disposition: ICU Operative Findings: Indication: Hemodynamic monitoring/Intravenous access. A time-out was completed verifying correct patient, procedure, site, positioning, and implant(s) or special equipment if applicable. The patient was placed in a dependent position appropriate for triple lumen catheter placement based on the vein to be cannulated. The patient's right neck area was prepped and draped in sterile fashion. 1% Lidocaine was used to anesthetize the surrounding skin area. A triple lumen 9F Cordis catheter was introduced into the right internal jugular vein using Seldinger technique. The catheter was threaded smoothly over the guide wire and appropriate blood return was obtained. Each lumen of the catheter was evacuated of air and flushed with sterile saline. The catheter was then sutured in place to the skin and a sterile dressing applied. Perfusion to the extremity distal to the point of catheter insertion was checked and found to be adequate.
[2025-03-05 18:15] LABS: Glucose,Whole Blood 228 mg/dL (70-110)
[2025-03-05 23:57] LABS: Glucose,Whole Blood 188 mg/dL (70-110)
[2025-03-06 05:06] LABS: Basophils # (A) 0.03 10*3/uL (0.00-0.10); Basophils % (A) 0.3 %; Eosinophils # (A) 0.04 10*3/uL (0.04-0.35); Eosinophils % (A) 0.3 %; HCT 38.7 % (39.6-50.0); HGB 14.0 g/dL (13.0-17.0); Immature Platelet Fraction 5.7 % (1.1-6.1); Lymphocytes # (A) 2.84 10*3/uL (0.90-5.00); Lymphocytes % (A) 23.8 %; MCH 35.6 pg (27.0-32.0); MCHC 36.2 g/dL (32.0-37.0); MCV 98.5 fL (80.0-97.0); Monocytes # (A) 0.82 10*3/uL (0.20-1.00); Monocytes % (A) 6.9 %; Neutrophils # (A) 8.16 10*3/uL (1.80-7.70); Neutrophils % (A) 68.4 %; Platelet Count 102 10*3/uL (140-440); RBC 3.93 10*6/uL (4.40-5.60); RDW 12.3 % (11.5-14.5); WBC 11.92 10*3/uL (4.50-10.00)
[2025-03-06 05:31] LABS: Glucose,Whole Blood 205 mg/dL (70-110)
[2025-03-06 05:33] LABS: African American GFR (CKD) 69 (>60 ml/min/1.73 sqM); Anion Gap 11 mmol/L; Blood Urea Nitrogen 20 mg/dL (9-20); Calcium 8.6 mg/dL (8.4-10.2); Carbon Dioxide 20 mmol/L (22-30); Chloride 104 mmol/L (98-107); Glucose 187 mg/dL (74-99); Non-African American GFR(CKD) 60 (>60 ml/min/1.73 sqM); Sodium 135 mmol/L (137-145)
[2025-03-06 05:41] LABS: ABG HCO3 23 mmol/L (21-25); ABG PCO2 32 mmHg (35-45); ABG PH 7.47 (7.35-7.45); ABG PO2 118 mmHg (83-108); ABG TCO2 24 mmol/L (19-24)
[2025-03-06 05:42] LABS: Allen Test Performed? no
[2025-03-06 05:48] LABS: Magnesium 2.2 mg/dL (1.6-2.3); Potassium 3.5 mmol/L (3.5-5.1)
[2025-03-06] MEDS: POTASSIUM BICARBONATE/CIT AC 20 MEQ TABLET.EFF NG-TUBE SCH ×2 (06:14→12:33)
--- NOTE | 2025-03-06 07:17 | P.PN ---
Subjective Progress Note Date: 03/06/25 PROGRESS NOTE The patient is a 69-year-old male with a history of CAD, status post CABG, status post permanent pacemaker implantation who presented with cardiac arrest and prolonged CPR. His EKG revealed paced rhythm with underlying sinus mechanism and paced at VVI. Apparently had a V-fib arrest. The patient is not anticoagulated because of evidence of GI bleeding. Full details of prior history is unclear. He remains intubated and sedated. Underlying sinus mechanism. His troponin is elevated at 52. March 06: The patient remains intubated and sedated. In sinus mechanism with 100% ventricular pacing with complete heart block. He is off vasopressors. His urinary output has been good. His neurological status is unclear. He underwent an echocardiogram that showed an ejection fraction of 35 to 40% but it was of difficult quality and no clear segmental wall motion abnormality could be seen. He had no further episodes of ventricular tachycardia. Medications: IV amiodarone, aspirin, insulin, Plavix 75 mg daily, Lipitor 40 mg daily PHYSICAL EXAMINATION: Blood pressure 108/60 heart rate 50, intubated and sedated LUNGS: Clear to auscultation HEART: Regular rate and rhythm, S1, S2. No S3. Systolic ejection murmur ABDOMEN: Soft, no organomegaly EXTREMETIES: No edema LAB: WBC 1.92, hemoglobin 14, potassium 3.5, BUN 20, creatinine 1.25, magnesium 2.2 IMPRESSION: 1. Cardiac arrest probably ischemic in a patient with known history of CAD, full detail of his prior CABG is not clear 2. Status post permanent pacemaker implantation with evidence consistent with generator depletion 3. Anoxic encephalopathy, severity unclear 4. History of hypertension per medications 5. History of hyperlipidemia PLAN: 1. Continue IV amiodarone 2. Await assessment of neurological status to make a decision about coronary angiography 3. Depending on his progress the patient would require generator change 4. Follow blood pressure and add NIMCO inhibitor if tolerated 5. Prognosis is guarded Objective - Vital Signs Vital signs: Vital Signs Temp 97.3 F L 03/06/25 04:00 Pulse 49 L 03/06/25 07:00 Resp 24 03/06/25 07:00 BP 108/65 03/06/25 06:30 Pulse Ox 100 03/06/25 07:00 FiO2 40 03/06/25 04:15 Intake & Output 03/05/25 03/06/2525 18:59 06:59 18:59 Intake Total 752.115 738.852 Output Total 470 535 Balance 282.115 203.852 Weight 107.1 kg 106.8 kg Intake: IV 143 156 0.9 NS KVO 110 120 Pressure Bag 33 36 Intake, IV Titration 549.115 582.852 Amount Amiodarone 450 mg In 218.338 221.116 Dextrose 5% in Water 250 ml @ 0.5 MG/MIN 16.667 mls/hr IV .Q15H [facility] Rx#: [id number] Norepinephrine 8 mg In 130.777 11.954 Sodium Chloride 0.9% 250 ml @ 0.03 MCG/KG/MIN 6. 095 mls/hr IV .Q24H [facility] Rx#:[id number] propofoL 1,000 mg In 200 349.782 Empty Bag 1 bag @ 15 MCG/ KG/MIN 9.45 mls/hr IV . [id number] [facility] Rx#:[id number] Other 60 Output: Gastric Drainage 150 Urine 470 385 Other: Voiding Method Indwelling Catheter Indwelling Catheter ABP, PAP, CO, CI - Last Documented Arterial Blood Pressure 99/65 - Labs CBC & Chem 7: 03/06/25 04:50 03/06/25 04:50 Labs: Abnormal Lab Results - Last 24 Hours (Table) 03/04/25 03/05/25 03/05/25 Range/Units 23:08 04:45 12:27 WBC (4.50-10.00) 10*3/uL RBC (4.40-5.60) 10*6/uL Hct (39.6-50.0) % MCV (80.0-97.0) fL MCH (27.0-32.0) pg Plt Count (140-440) 10*3/uL Neutrophils # (1.80-7.70) 10*3/uL ABG pH (7.35-7.45) ABG pCO2 (35-45) mmHg ABG pO2 (83-108) mmHg ABG O2 Saturation (94-97) % Sodium (137-145) mmol/L Carbon Dioxide (22-30) mmol/L Glucose (74-99) mg/dL POC Glucose (mg/dL) 271 H (70-110) mg/dL Hemoglobin A1c 9.3 H (<=6.0) % Triglycerides 363.00 H (0.00-149.00) mg/dL Cholesterol 228.00 H (0.00-200.00) mg/dL VLDL Cholesterol, Calc 72.60 H (5.00-40.00) mg/dL HDL Cholesterol 38.80 L (40.00-60.00) mg/dL 03/05/25 03/05/25 03/05/25 Range/Units 13:31 18:13 23:55 WBC (4.50-10.00) 10*3/uL RBC (4.40-5.60) 10*6/uL Hct (39.6-50.0) % MCV (80.0-97.0) fL MCH (27.0-32.0) pg Plt Count (140-440) 10*3/uL Neutrophils # (1.80-7.70) 10*3/uL ABG pH (7.35-7.45) ABG pCO2 (35-45) mmHg ABG pO2 (83-108) mmHg ABG O2 Saturation (94-97) % Sodium (137-145) mmol/L Carbon Dioxide (22-30) mmol/L Glucose (74-99) mg/dL POC Glucose (mg/dL) 252 H 228 H 188 H (70-110) mg/dL Hemoglobin A1c (<=6.0) % Triglycerides (0.00-149.00) mg/dL Cholesterol (0.00-200.00) mg/dL VLDL Cholesterol, Calc (5.00-40.00) mg/dL HDL Cholesterol (40.00-60.00) mg/dL 03/06/25 03/06/25 03/06/25 Range/Units 04:50 04:50 05:28 WBC 11.92 H (4.50-10.00) 10*3/uL RBC 3.93 L (4.40-5.60) 10*6/uL Hct 38.7 L (39.6-50.0) % MCV 98.5 H (80.0-97.0) fL MCH 35.6 H (27.0-32.0) pg Plt Count 102 L (140-440) 10*3/uL Neutrophils # 8.16 H (1.80-7.70) 10*3/uL ABG pH (7.35-7.45) ABG pCO2 (35-45) mmHg ABG pO2 (83-108) mmHg ABG O2 Saturation (94-97) % Sodium 135 L (137-145) mmol/L Carbon Dioxide 20 L (22-30) mmol/L Glucose 187 H (74-99) mg/dL POC Glucose (mg/dL) 205 H (70-110) mg/dL Hemoglobin A1c (<=6.0) % Triglycerides (0.00-149.00) mg/dL Cholesterol (0.00-200.00) mg/dL VLDL Cholesterol, Calc (5.00-40.00) mg/dL HDL Cholesterol (40.00-60.00) mg/dL 03/06/25 Range/Units 05:37 WBC (4.50-10.00) 10*3/uL RBC (4.40-5.60) 10*6/uL Hct (39.6-50.0) % MCV (80.0-97.0) fL MCH (27.0-32.0) pg Plt Count (140-440) 10*3/uL Neutrophils # (1.80-7.70) 10*3/uL ABG pH 7.47 H (7.35-7.45) ABG pCO2 32 L (35-45) mmHg ABG pO2 118 H (83-108) mmHg ABG O2 Saturation 99.2 H (94-97) % Sodium (137-145) mmol/L Carbon Dioxide (22-30) mmol/L Glucose (74-99) mg/dL POC Glucose (mg/dL) (70-110) mg/dL Hemoglobin A1c (<=6.0) % Triglycerides (0.00-149.00) mg/dL Cholesterol (0.00-200.00) mg/dL VLDL Cholesterol, Calc (5.00-40.00) mg/dL HDL Cholesterol (40.00-60.00) mg/dL Microbiology - Last 24 Hours (Table) 03/05/25 04:38 Gram Stain - Preliminary Sputum
--- NOTE | 2025-03-06 07:23 | XR ---
EXAMINATION TYPE: XR chest 1V portable DATE OF EXAM: 03/06/2025 5:40 AM COMPARISON: Chest radiograph from one day prior. CLINICAL INDICATION: Male, 69 years old with history of Tube placement; TECHNIQUE: XR chest 1V portable Frontal view of the chest. FINDINGS: Lungs/Pleura: There is no evidence of pleural effusion, focal consolidation, or pneumothorax. Pulmonary vascularity: Unremarkable. Heart/mediastinum: Cardiomediastinal silhouette is prominent in size. Two lead cardiac conduction dev ice overlying the left hemithorax with lead tips projecting over the right ventricle and right atrium . Musculoskeletal: No acute osseous pathology. Midline sternotomy wires are noted. Other findings: None Lines/Tubes: Endotracheal tube with distal tip 5.0 cm above the karen. Nasogastric tube with its distal tip and side-port projecting under the diaphragm. Right central venous catheter with distal tip in the superior vena cava/superior cavoatrial junction. IMPRESSION: No acute cardiopulmonary disease/process. [facility], , 03/06/2025 7:20 AM
[2025-03-06 08:14] LABS: ALT 55.0 U/L (4-49); AST 104.0 U/L (17-59); Albumin 3.1 g/dL (3.5-5.0); Alkaline Phosphatase 89.0 U/L (38-126); Bilirubin, Delta 0.8 mg/dL (0.0-0.2); Bilirubin,Unconjugated 0.4 mg/dL (0.0-1.1); INR 1.1 (<1.2); Prothrombin Time 11.7 sec (10.0-12.5); Total Protein 5.9 g/dL (6.3-8.2)
[2025-03-06 11:08] LABS: Glucose,Whole Blood 164 mg/dL (70-110)
--- NOTE | 2025-03-06 11:52 | P.PN ---
Subjective Progress Note Date: 03/06/25 Patient is a 69-year-old male with little known past medical history. No prior records available for review. Apparently, patient had called EMS for his brother last night, when they arrived, he collapsed. Found to be in V-fib cardiac arrest. He was defibrillated 3 times, a total of 3 rounds of epinep hrine were given, loaded with amiodarone, and intubated in the field. ROSC was achieved, with an estimated 20-minute downtime. At some point, patient self extubated and was reintubated in the emergency department. Chest CT angiogram done in the emergency department did not show any evidence of pulmonary emboli. Findings concerning for CHF. A bedside echo was reportedly done by Cardiology in the emergency department and unofficial reports found to have a severely low ejection fraction, around 10 to 15%. Serial troponins elevated at 1.25 and subsequently 52.1. EKG: Ventricular paced rhythm at 50 bpm. Remaining lab work including a CBC with a WBC count of 21.2, hemoglobin 15.3, platelets 161. CMP: Sodium 142, potassium 3.4, chloride 105, serum bicarb 8, BUN 11, creatinine 0.93, glucose 403. Lactic 2.7. AST 178, ALT 73, ALP 125. Abdominal ultrasound showing cholelithiasis without cholecystitis and hepatic steatosis with hepatomegaly. Repeat labs showing improvement in patient's metabolic acidosis and serum bicarb of 16. Patient has developed acute kidney injury, likely cardi orenal. Patient also noted to have maroon gastric content from his OG tube. Gastroccult was positive. Patient currently being evaluated in the intensive care unit. He remains intubated to mechanical ventilator. Most recent available chest x-ray showing the endotracheal tube above the karen, orogastric tube which should be advanced for 5 cm, patchy appearing pulmonary edema, old sternotomy wires and pacemaker generator in the left chest. Previous ABGs showing a PaO2 of 231, pCO2 of 38, pH of 7.14. Previous ventilator changes made by Dr. Mays. Repeat gases, showing improvement in patient's acid-base balance with a PaO2 of 52, pCO2 of 37, pH of 7.34. Current ventilator settings assist-c ontrol, respiratory rate 24, tidal line 450, FiO2 50%, PEEP of 10. SpO2 reading 100% on bedside monitor. He is sedated on propofol at 45 mcg/kg/min. Synchronous with current settings. Difficult to assess neurostatus due to level of sedation. Norepinephrine infusing at 0.03 mcg/kg/min. Also, amiodarone infusing at 0.5 mg/min. Patient's rhythm on bedside monitor is V-paced at 50 bpm. Previously, patient was fluid resuscitated with a total of 2.5 L of crystalloid bolus. Urine output is low less than 30 cc/h On 03/06/2025, the patient is being seen for a follow-up. This patient is postc ardiac arrest. On today's evaluation, he is on propofol running at 45 mcg/kg/min., Comfortable. Grimaces to painful stimulation. Is on assist- control mode at rate of 24, tidal volume of 450, FiO2 40% with a PEEP of 8. Blood gas showed pH of 7.47 with a [id number] and PO218. chest x-ray remains clear. Orotracheal tube is in good location. Cardiac rhythm is paced, VVI going to the patient's pacemaker generator has run out of battery and he is on a backup VVI at rate of 50. He remains on amiodarone drip at 0.5 mg/min. He is off norepinephrine as of 9:00 yesterday. He is on normal saline at KVO. He remains on aspirin and Plavix. He remains on insulin in the form of Lantus 10 units twice daily. Afebrile. Normotensive. The WBC count is 11.9, hemoglobin 14 and platelet count of 102. Sodium is 135, potassium is 3.5, he is 20 mL creatinine of 1.2. LFTs are mildly elevated with an AST of 104 and ALT of 55. The echocardiogram was completed and the patient was found to have systolic heart failure with an ejection fraction of 35 to 40%. Valves were not adequately visualized. He remains n.p.o. for now. Cardiology is on the case. The patient will receive a sedation holiday. Will be making further planning regarding the need for cardiac catheterization within the next 24 hours. He is on Lipitor 40 mg p.o. daily. Objective - Vital Signs Vital signs: Vital Signs Temp 97.3 F L 03/06/25 04:00 Pulse 49 L 03/06/25 07:00 Resp 24 03/06/25 07:00 BP 108/65 03/06/25 06:30 Pulse Ox 100 03/06/25 07:00 FiO2 40 03/06/25 08:09 Intake & Output 03/05/25 03/06/25 03/06/25 18:59 06:59 18:59 Intake Total 752.115 738.852 13 Output Total 470 535 20 Balance 282.115 203.852 -7 Weight 107.1 kg 106.8 kg Intake: IV 143 156 13 0.9 NS KVO 110 120 10 Pressure Bag 33 36 3 Intake, IV Titration 549.115 582.852 Amount Amiodarone 450 mg In 218.338 221.116 Dextrose 5% in Water 250 ml @ 0.5 MG/MIN 16.667 mls/hr IV .Q15H [facility] Rx#: [id number] Norepinephrine 8 mg In 130.777 11.954 Sodium Chloride 0.9% 250 ml @ 0.03 MCG/KG/MIN 6. 095 mls/hr IV .Q24H [facility] Rx#:[id number] propofoL 1,000 mg In 200 349.782 Empty Bag 1 bag @ 15 MCG/ KG/MIN 9.45 mls/hr IV . [id number] [facility] Rx#:[id number] Other 60 Output: Gastric Drainage 150 Urine 470 385 20 Other: Voiding Method Indwelling Catheter Indwelling Catheter ABP, PAP, CO, CI - Last Documented Arterial Blood Pressure 99/65 - Exam GENERAL EXAM: Sedated, 69-year-old male, intubated mechanical ventilator. Synchronous with current ventilator settings. HEAD: Normocephalic and atraumatic EYES: Normal reaction of pupils, equal size. Anicteric. No nystagmus. NOSE: Clear with pink turbinates. THROAT: No erythema or exudates. NECK: No masses, no JVD. CHEST: Left chest pacemaker generator. Remote appearing sternotomy incision. LUNGS: Equal air entry with no crackles, wheeze, rhonchi or dullness. CVS: S1 and S2 normal with no audible murmur, regular rhythm. No extra heart sounds ABDOMEN: No hepatosplenomegaly, active bowel sounds, no guarding or rigidity. SPINE: No scoliosis or deformity SKIN: No rashes CENTRAL NERVOUS SYSTEM: Sedated on propofol, complete neurological examination difficult due to level of sedation. Positive gag, flaccid extremities, neutral Babinski bilaterally. EXTREMITIES: There is no peripheral edema, clubbing, or cyanosis. Peripheral pulses are weak and thready. Extremities warm. - Labs CBC & Chem 7: 03/06/25 04:50 03/06/25 11:10 Labs: Abnormal Lab Results - Last 24 Hours (Table) 03/05/25 03/05/25 03/05/25 Range/Units 12:27 13:31 18:13 WBC (4.50-10.00) 10*3/uL RBC (4.40-5.60) 10*6/uL Hct (39.6-50.0) % MCV (80.0-97.0) fL MCH (27.0-32.0) pg Plt Count (140-440) 10*3/uL Neutrophils # (1.80-7.70) 10*3/uL ABG pH (7.35-7.45) ABG pCO2 (35-45) mmHg ABG pO2 (83-108) mmHg ABG O2 Saturation (94-97) % Sodium (137-145) mmol/L Carbon Dioxide (22-30) mmol/L Glucose (74-99) mg/dL POC Glucose (mg/dL) 271 H 252 H 228 H (70-110) mg/dL Delta Bilirubin (0.0-0.2) mg/dL AST (17-59) U/L ALT (4-49) U/L Total Protein (6.3-8.2) g/dL Albumin (3.5-5.0) g/dL 03/05/25 03/06/25 03/06/25 Range/Units 23:55 04:50 04:50 WBC 11.92 H (4.50-10.00) 10*3/uL RBC 3.93 L (4.40-5.60) 10*6/uL Hct 38.7 L (39.6-50.0) % MCV 98.5 H (80.0-97.0) fL MCH 35.6 H (27.0-32.0) pg Plt Count 102 L (140-440) 10*3/uL Neutrophils # 8.16 H (1.80-7.70) 10*3/uL ABG pH (7.35-7.45) ABG pCO2 (35-45) mmHg ABG pO2 (83-108) mmHg ABG O2 Saturation (94-97) % Sodium 135 L (137-145) mmol/L Carbon Dioxide 20 L (22-30) mmol/L Glucose 187 H (74-99) mg/dL POC Glucose (mg/dL) 188 H (70-110) mg/dL Delta Bilirubin (0.0-0.2) mg/dL AST (17-59) U/L ALT (4-49) U/L Total Protein (6.3-8.2) g/dL Albumin (3.5-5.0) g/dL 03/06/25 03/06/25 03/06/25 Range/Units 05:28 05:37 07:41 WBC (4.50-10.00) 10*3/uL RBC (4.40-5.60) 10*6/uL Hct (39.6-50.0) % MCV (80.0-97.0) fL MCH (27.0-32.0) pg Plt Count (140-440) 10*3/uL Neutrophils # (1.80-7.70) 10*3/uL ABG pH 7.47 H (7.35-7.45) ABG pCO2 32 L (35-45) mmHg ABG pO2 118 H (83-108) mmHg ABG O2 Saturation 99.2 H (94-97) % Sodium (137-145) mmol/L Carbon Dioxide (22-30) mmol/L Glucose (74-99) mg/dL POC Glucose (mg/dL) 205 H (70-110) mg/dL Delta Bilirubin 0.8 H (0.0-0.2) mg/dL AST 104 H (17-59) U/L ALT 55 H (4-49) U/L Total Protein 5.9 L (6.3-8.2) g/dL Albumin 3.1 L (3.5-5.0) g/dL Microbiology - Last 24 Hours (Table) 03/05/25 04:38 Gram Stain - Preliminary Sputum Assessment and Plan Assessment: [id number], witnessed cardiac arrest, presenting rhythm was ventricular fibrillation with prolonged downtime estimated at 20 minutes per ER documentat ion. The patient remains intubated on a mechanical ventilator. Hemodynamically stable. He is afebrile. On today's evaluation, he remains on propofol and his quite synchronous on mechanical ventilator. Systolic heart failure with an ejection fraction of 35%. Valvular function could not be assessed on echocardiogram. Acute hypoxemic respiratory failure, secondary to cardiac arrest. Adequate oxygenation and ventilation and the patient chest x-ray shows no acute abnormalities Hypotension and shock, possibly cardiogenic, improved and the patient is currently off pressors Anion gap metabolic acidosis Acute kidney injury, cardiorenal, improved and the creatinine is down to 1.2 History of diabetes mellitus, with hyperglycemia, currently on Lantus insulin 10 units twice daily and sliding scale coverage. Acute leukocytosis, likely reactive Hypokalemia, replaced GI bleed, with maroon gastric content coming from orogastric tube, no signs of any active GI bleed and the patient remains n.p.o. History of open heart surgery, possibly a valve surgery. Unsure if the patient had coronary artery bypass. History of permanent pacemaker, currently ventricularly paced rhythm, the pacemaker generator battery is low and had to be replaced approximately 2 years ago. This has not been done. Currently patient is being VVI paced at a rate of 50. Plan: Continue ventilator support. Decrease the PEEP down to 5. Give the patient a sedation holiday and assess mental status. Will keep him intubated till a final decision regarding cardiac catheterization is made by cardiology. Patient is currently off norepinephrine infusion. Amiodarone infusing per protocol at 0.5 mg/min Chest CT angiogram did not show evidence of pulmonary embolism Per cardiology, possible plan for heart catheterization based on neurological status. Patient is being paced at a rate of 50, VVI mode and the pacemaker generator needs to be replaced at a later stage. Continue aspirin and Plavix Continue Lipitor Continue Lantus insulin Monitor mental status off sedation. Use Precedex as needeD Will coordinate care with cardiology. Will likely need a cardiac catheterization postcardiac arrest and myocardial infarction. Critical care evaluation was done in 40 minutes. Work in progress. Time with Patient: Greater than 30
--- NOTE | 2025-03-06 12:12 | P.PN ---
Subjective Progress Note Date: 03/06/25 Principal diagnosis: Cardiac arrest This is a 69-year-old male currently being evaluated in the intensive care unit who was admitted following cardiac arrest. HPI is obtained from chart and patient's nurse. Apparently patient was assisting a family member who had fallen and EMS was there to assist that family member when the patient suddenly collapsed and was found in V. tach and CPR was started. Patient was intubated in the field as well as reintubated in the emergency department as patient had pulled out his ET tube on his way and route. Patient is currently intubated and sedated. Apparently had about 250 cc of reportedly maroon-colored output from OG tube therefore gastroenterology was consulted. Oh tube currently clamped and therefore no further output at this time. Admitting hemoglobin 15.3 with repeat today of 14.8. Medications reviewed and does not appear to be on any anticoagulation, aspirin 81 mg daily is listed in home medication list. Patient has had no further maroon-colored output from OG tube. 03/06/2025 Patient seen and examined today in the ICU as a follow-up. He has not had any further output from the OG that has been bloody or maroon-colored. They are trialing a sedation holiday today. No melena. Hemoglobin stable at 14.0 platel et count did drop to 102,000 from 146,000 yesterday. Objective - Vital Signs Vital signs: Vital Signs Temp 98.2 F 03/06/25 08:00 Pulse 49 L 03/06/25 09:00 Resp 24 03/06/25 09:00 BP 104/67 03/06/25 09:00 Pulse Ox 100 03/06/25 09:00 FiO2 40 03/06/25 08:09 Intake & Output 03/05/25 03/06/25 03/06/25 18:59 06:59 18:59 Intake Total 752.115 738.852 136.282 Output Total 470 535 30 Balance 282.115 203.852 106.282 Weight 107.1 kg 106.8 kg Intake: IV 143 156 39 0.9 NS KVO 110 120 30 Pressure Bag 33 36 9 Intake, IV Titration 549.115 582.852 97.282 Amount Amiodarone 450 mg In 218.338 221.116 Dextrose 5% in Water 250 ml @ 0.5 MG/MIN 16.667 mls/hr IV .Q15H [facility] Rx#: [id number] Norepinephrine 8 mg In 130.777 11.954 Sodium Chloride 0.9% 250 ml @ 0.03 MCG/KG/MIN 6. 095 mls/hr IV .Q24H [facility] Rx#:[id number] propofoL 1,000 mg In 200 349.782 97.282 Empty Bag 1 bag @ 15 MCG/ KG/MIN 9.45 mls/hr IV . [id number] [facility] Rx#:[id number] Other 60 Output: Gastric Drainage 150 Urine 470 385 30 Other: Voiding Method Indwelling Catheter Indwelling Catheter ABP, PAP, CO, CI - Last Documented Arterial Blood Pressure 103/58 - Exam General appearance: The patient is sedated and intubated. HET: Head is normocephalic and atraumatic. Conjunctiva pink. Sclera anicteric. Neck: Supple without lymphadenopathy. Trachea midline. Heart: Regular. Pacemaker. Lungs: Equal expansion, on mechanical ventilation. Abdomen: Soft, nondistended. Skin: No rashes. No jaundice. Extremities: Normal skin color and turgor. No pedal edema. Neurological: Sedated and intubated. - Labs CBC & Chem 7: 03/06/25 04:50 03/06/25 11:10 Labs: Abnormal Lab Results - Last 24 Hours (Table) 03/05/25 03/05/25 03/05/25 Range/Units 12:27 13:31 18:13 WBC (4.50-10.00) 10*3/uL RBC (4.40-5.60) 10*6/uL Hct (39.6-50.0) % MCV (80.0-97.0) fL MCH (27.0-32.0) pg Plt Count (140-440) 10*3/uL Neutrophils # (1.80-7.70) 10*3/uL ABG pH (7.35-7.45) ABG pCO2 (35-45) mmHg ABG pO2 (83-108) mmHg ABG O2 Saturation (94-97) % Sodium (137-145) mmol/L Carbon Dioxide (22-30) mmol/L Glucose (74-99) mg/dL POC Glucose (mg/dL) 271 H 252 H 228 H (70-110) mg/dL Delta Bilirubin (0.0-0.2) mg/dL AST (17-59) U/L ALT (4-49) U/L Total Protein (6.3-8.2) g/dL Albumin (3.5-5.0) g/dL 03/05/25 03/06/25 03/06/25 Range/Units 23:55 04:50 04:50 WBC 11.92 H (4.50-10.00) 10*3/uL RBC 3.93 L (4.40-5.60) 10*6/uL Hct 38.7 L (39.6-50.0) % MCV 98.5 H (80.0-97.0) fL MCH 35.6 H (27.0-32.0) pg Plt Count 102 L (140-440) 10*3/uL Neutrophils # 8.16 H (1.80-7.70) 10*3/uL ABG pH (7.35-7.45) ABG pCO2 (35-45) mmHg ABG pO2 (83-108) mmHg ABG O2 Saturation (94-97) % Sodium 135 L (137-145) mmol/L Carbon Dioxide 20 L (22-30) mmol/L Glucose 187 H (74-99) mg/dL POC Glucose (mg/dL) 188 H (70-110) mg/dL Delta Bilirubin (0.0-0.2) mg/dL AST (17-59) U/L ALT (4-49) U/L Total Protein (6.3-8.2) g/dL Albumin (3.5-5.0) g/dL 03/06/25 03/06/25 03/06/25 Range/Units 05:28 05:37 07:41 WBC (4.50-10.00) 10*3/uL RBC (4.40-5.60) 10*6/uL Hct (39.6-50.0) % MCV (80.0-97.0) fL MCH (27.0-32.0) pg Plt Count (140-440) 10*3/uL Neutrophils # (1.80-7.70) 10*3/uL ABG pH 7.47 H (7.35-7.45) ABG pCO2 32 L (35-45) mmHg ABG pO2 118 H (83-108) mmHg ABG O2 Saturation 99.2 H (94-97) % Sodium (137-145) mmol/L Carbon Dioxide (22-30) mmol/L Glucose (74-99) mg/dL POC Glucose (mg/dL) 205 H (70-110) mg/dL Delta Bilirubin 0.8 H (0.0-0.2) mg/dL AST 104 H (17-59) U/L ALT 55 H (4-49) U/L Total Protein 5.9 L (6.3-8.2) g/dL Albumin 3.1 L (3.5-5.0) g/dL Microbiology - Last 24 Hours (Table) 03/05/25 04:38 Gram Stain - Preliminary Sputum Assessment and Plan (1) GI bleed Narrative/Plan: 69-year-old male brought into the emergency department and admitted after patient was witnessed collapsing and being unresponsive for EMS who was noted to be in V. tach and underwent cardiac arrest CPR with intubation in the field as well as in the emergency department. Patient currently intubated and sedated, was reported to have maroon-colored output from OG tube that was positive gastric occult and concern for possible upper GI bleed. Patient's hemoglobin stable, without any further reported output however suction was clamped. Prema ent without abdominal distention. Remains sedated and intubated with limited history. Possibility there was injury during intubation and patient underwent intubation twice. Will continue to monitor for upper GI bleed. Continue with medical management Protonix 40 mg twice daily. No further signs of upper GI bleed. No signs of lower GI bleed. Current Visit: Yes Status: Acute Code(s): K92.2 - GASTROINTESTINAL HEMORRHAGE, UNSPECIFIED SNOMED Code(s): 14204564 (2) Elevated LFTs Narrative/Plan: Likely secondary to acute ischemic hepatitis from shock liver, LFTs trending down. Current Visit: Yes Status: Acute Code(s): R79.89 - OTHER SPECIFIED ABNORMAL FINDINGS OF BLOOD CHEMISTRY SNOMED Code(s): 454181784 (3) Cardiac arrest Current Visit: Yes Status: Acute Code(s): I46.9 - CARDIAC ARREST, CAUSE UNSPECIFIED SNOMED Code(s): 738949951 (4) History of pacemaker Current Visit: Yes Status: Acute Code(s): Z95.0 - PRESENCE OF CARDIAC PACEMAKER SNOMED Code(s): 877612515 Plan: 1. Continue symptomatic and supportive care 2. Would recommend decreasing Protonix to 40 mg daily for GI prophylaxis 3. No further workup from gastroenterology. No signs of GI bleed. Initial maroon output from OG tube possibly secondary to trauma from intubation and CPR Thank you for this consultation, we will sign off at this time. Please do not hesitate to call us back if needed. Dr. Kim Hadley I agree with the dictator's note, documented as a scribe by Jenn Lo.
[2025-03-06] MEDS: DEXMEDETOMIDINE/0.9% NACL(PMX) 400 MCG in EMPTY BAG 1 BAG IV SCH (12:32)
--- NOTE | 2025-03-06 13:53 | P.PN ---
Subjective Progress Note Date: 03/06/25 patient is a 69-year-old gentleman with past medical history significant for coronary artery disease who presented to the ER after having a witnessed cardiac arrest. History is limited and most of is obtained from the EMR. Apparently patient had called EMS for his brother who had fallen, when EMS came patient collapsed while helping his brother and EMS. EMS started working on the patient and found him to be in V-fib, CPR was initiated, patient was intubated and received 3 rounds of epi, patient also shocked 3 times. Patient was down for at least 20 minutes before the return of ROSC. En route to ER, patient self extubated but patient was later intubated again by ER physician EKG done in the ER showed heart rate of , no ST segment elevation or depression seen, no T-wave inversions seen. Chest x-ray done in the ER ET tube 5.3 cm above the karen, no acute pulmonary process CT head done showed no acute intracranial process CT cervical spine done showed no acute fracture CTA chest done showed no evidence of pneumonia, cholelithiasis seen. Patient admitted to ICU 03/05. Patient seen and examined. Patient currently on mechanical ventilation. Patient is currently on Levophed, amiodarone. Patient overnight had some maroon-colored oozing from his OG tube 03/06. Patient seen and examined. Patient continues to be on ventilation, currently having sedation holiday, patient was responsive according to nursing staff. Currently on amiodarone drip, patient has been weaned off the Levophed. REVIEW OF SYSTEMS: Review of system cannot be as patient is intubated PHYSICAL EXAMINATION: GENERAL: The patient is intubated HEENT: Pupils are round and equally reacting to light. EOMI. No scleral icterus. No conjunctival pallor. Normocephalic, atraumatic. No pharyngeal erythema. No thyromegaly. CARDIOVASCULAR: S1 and S2 present. No murmurs, rubs, or gallops. PULMONARY: Chest is clear to auscultation, no wheezing or crackles. ABDOMEN: Soft, nontender, nondistended, normoactive bowel sounds. No palpable organomegaly. MUSCULOSKELETAL: No joint swelling or deformity. EXTREMITIES: No cyanosis, clubbing, or pedal edema. NEUROLOGICAL: Intubated SKIN: No rashes. Assessment and plan Cardiac arrest V-fib arrest Acute systolic CHF Cardiomyopathy Cardiogenic shock Acute hypoxic respiratory failure NSTEMI Acute kidney injury, cardiorenal Acute leukocytosis, likely reactive Hypokalemia, replaced Hyperglycemia Acute transaminitis History of coronary artery disease History of diabetes mellitus Monitor vital signs Monitor CBC Monitor CMP Continue telemetry monitoring Continue vent management Continue aspirin, Plavix, Lipitor Continue amiodarone drip Continue IV Protonix Cardiology following, planning cardiac cath once neurological status is determined Critical care following Labs and medication were reviewed.. Continue same treatment. Continue with symptomatic treatment. Resume home medication. Monitor labs and vitals. DVT and GI prophylaxis. Further recommendations as per clinical course of the patient Dictation was produced using [employer] dictation software. please excuse any grammatical, word or spelling errors. Objective - Vital Signs Vital signs: Vital Signs Temp 98.3 F 03/06/25 12:00 Pulse 50 L 03/06/25 13:00 Resp 24 03/06/25 13:00 BP 111/65 03/06/25 13:00 Pulse Ox 100 03/06/25 13:00 FiO2 40 03/06/25 12:00 Intake & Output 03/05/25 03/06/25 03/06/25 18:59 06:59 18:59 Intake Total 752.115 738.852 298.845 Output Total 470 535 220 Balance 282.115 203.852 78.845 Weight 107.1 kg 106.8 kg Intake: IV 143 156 101 0.9 NS KVO 110 120 80 Pressure Bag 33 36 21 Intake, IV Titration 549.115 582.852 197.845 Amount Amiodarone 450 mg In 218.338 221.116 Dextrose 5% in Water 250 ml @ 0.5 MG/MIN 16.667 mls/hr IV .Q15H [facility] Rx#: [id number] Dexmedetomidine/0.9% NaCl 9.790 (Pmx) 400 mcg In Empty Bag 1 bag @ 0.2 MCG/KG/HR 5.34 mls/hr IV .[id number] [facility] Rx#:[id number] Norepinephrine 8 mg In 130.777 11.954 Sodium Chloride 0.9% 250 ml @ 0.03 MCG/KG/MIN 6. 095 mls/hr IV .Q24H [facility] Rx#:[id number] propofoL 1,000 mg In 200 349.782 188.055 Empty Bag 1 bag @ 15 MCG/ KG/MIN 9.45 mls/hr IV . [id number] [facility] Rx#:[id number] Other 60 Output: Gastric Drainage 150 Urine 470 385 220 Other: Voiding Method Indwelling Catheter Indwelling Catheter Indwelling Catheter ABP, PAP, CO, CI - Last Documented Arterial Blood Pressure 106/70 - Labs CBC & Chem 7: 03/06/25 04:50 03/06/25 11:10 Labs: Abnormal Lab Results - Last 24 Hours (Table) 03/05/25 03/05/25 03/06/25 Range/Units 18:13 23:55 04:50 WBC 11.92 H (4.50-10.00) 10*3/uL RBC 3.93 L (4.40-5.60) 10*6/uL Hct 38.7 L (39.6-50.0) % MCV 98.5 H (80.0-97.0) fL MCH 35.6 H (27.0-32.0) pg Plt Count 102 L (140-440) 10*3/uL Neutrophils # 8.16 H (1.80-7.70) 10*3/uL ABG pH (7.35-7.45) ABG pCO2 (35-45) mmHg ABG pO2 (83-108) mmHg ABG O2 Saturation (94-97) % Sodium (137-145) mmol/L Carbon Dioxide (22-30) mmol/L Glucose (74-99) mg/dL POC Glucose (mg/dL) 228 H 188 H (70-110) mg/dL Delta Bilirubin (0.0-0.2) mg/dL AST (17-59) U/L ALT (4-49) U/L Total Protein (6.3-8.2) g/dL Albumin (3.5-5.0) g/dL 03/06/25 03/06/25 03/06/25 Range/Units 04:50 05:28 05:37 WBC (4.50-10.00) 10*3/uL RBC (4.40-5.60) 10*6/uL Hct (39.6-50.0) % MCV (80.0-97.0) fL MCH (27.0-32.0) pg Plt Count (140-440) 10*3/uL Neutrophils # (1.80-7.70) 10*3/uL ABG pH 7.47 H (7.35-7.45) ABG pCO2 32 L (35-45) mmHg ABG pO2 118 H (83-108) mmHg ABG O2 Saturation 99.2 H (94-97) % Sodium 135 L (137-145) mmol/L Carbon Dioxide 20 L (22-30) mmol/L Glucose 187 H (74-99) mg/dL POC Glucose (mg/dL) 205 H (70-110) mg/dL Delta Bilirubin (0.0-0.2) mg/dL AST (17-59) U/L ALT (4-49) U/L Total Protein (6.3-8.2) g/dL Albumin (3.5-5.0) g/dL 03/06/25 03/06/25 Range/Units 07:41 11:06 WBC (4.50-10.00) 10*3/uL RBC (4.40-5.60) 10*6/uL Hct (39.6-50.0) % MCV (80.0-97.0) fL MCH (27.0-32.0) pg Plt Count (140-440) 10*3/uL Neutrophils # (1.80-7.70) 10*3/uL ABG pH (7.35-7.45) ABG pCO2 (35-45) mmHg ABG pO2 (83-108) mmHg ABG O2 Saturation (94-97) % Sodium (137-145) mmol/L Carbon Dioxide (22-30) mmol/L Glucose (74-99) mg/dL POC Glucose (mg/dL) 164 H (70-110) mg/dL Delta Bilirubin 0.8 H (0.0-0.2) mg/dL AST 104 H (17-59) U/L ALT 55 H (4-49) U/L Total Protein 5.9 L (6.3-8.2) g/dL Albumin 3.1 L (3.5-5.0) g/dL Microbiology - Last 24 Hours (Table) 03/05/25 04:38 Gram Stain - Preliminary Sputum Sputum Culture - Preliminary
[2025-03-06 14:25] LABS: ABG HCO3 24 mmol/L (21-25); ABG PCO2 33 mmHg (35-45); ABG PH 7.47 (7.35-7.45); ABG PO2 103 mmHg (83-108); ABG TCO2 25 mmol/L (19-24)
[2025-03-06 14:27] LABS: Allen Test Performed? no
[2025-03-06 17:19] LABS: Glucose,Whole Blood 202 mg/dL (70-110)
[2025-03-06 20:30] LABS: Glucose,Whole Blood 179 mg/dL (70-110)
[2025-03-06] MEDS: INSULIN LISPRO (HumaLOG) 100 UNIT/ML 10 mL VL SQ SCH (20:31)
[2025-03-06] MEDS: HYDROcodone/APAP 5-325MG 1 EACH TAB PO PRN (22:44)
[2025-03-06 23:22] LABS: Glucose,Whole Blood 153 mg/dL (70-110)
[2025-03-07 05:49] LABS: Basophils # (A) 0.03 10*3/uL (0.00-0.10); Basophils % (A) 0.3 %; Eosinophils # (A) 0.03 10*3/uL (0.04-0.35); Eosinophils % (A) 0.3 %; HCT 37.2 % (39.6-50.0); HGB 12.8 g/dL (13.0-17.0); Immature Platelet Fraction 6.0 % (1.1-6.1); Lymphocytes # (A) 2.36 10*3/uL (0.90-5.00); Lymphocytes % (A) 21.1 %; MCH 34.3 pg (27.0-32.0); MCHC 34.4 g/dL (32.0-37.0); MCV 99.7 fL (80.0-97.0); Monocytes # (A) 0.94 10*3/uL (0.20-1.00); Monocytes % (A) 8.4 %; Neutrophils # (A) 7.78 10*3/uL (1.80-7.70); Neutrophils % (A) 69.6 %; Platelet Count 98 10*3/uL (140-440); RBC 3.73 10*6/uL (4.40-5.60); RDW 12.4 % (11.5-14.5); WBC 11.17 10*3/uL (4.50-10.00)
[2025-03-07 06:03] LABS: African American GFR (CKD) 81 (>60 ml/min/1.73 sqM); Anion Gap 10 mmol/L; Blood Urea Nitrogen 19 mg/dL (9-20); Calcium 8.5 mg/dL (8.4-10.2); Carbon Dioxide 22 mmol/L (22-30); Chloride 103 mmol/L (98-107); Glucose 157 mg/dL (74-99); Non-African American GFR(CKD) 70 (>60 ml/min/1.73 sqM); Potassium 3.6 mmol/L (3.5-5.1); Sodium 135 mmol/L (137-145)
[2025-03-07] MEDS: POTASSIUM CHLORIDE 10 MEQ in WATER FOR INJECTION 1 100ML.BAG IVPB SCH (06:23)
[2025-03-07] MEDS ORDERED: NITROGLYCERIN SL TABS 0.4 MG TAB SUBLINGUAL PRN (07:19)
[2025-03-07] MEDS ORDERED: ALPRAZolam 0.5 MG TAB PO PRN (07:19)
[2025-03-07] MEDS ORDERED: ALPRAZolam 0.25 MG TAB PO PRN (07:19)
--- NOTE | 2025-03-07 07:25 | P.PN ---
Subjective Progress Note Date: 03/07/25 PROGRESS NOTE The patient is a 69-year-old male with a history of CAD, status post AVR, status post permanent pacemaker implantation who presented with cardiac arrest and prolonged CPR. His EKG revealed paced rhythm with underlying sinus mechanism and paced at VVI. Apparently had a V-fib arrest. The patient is not anticoagulated because of evidence of GI bleeding. Full details of prior history is unclear. He remains intubated and sedated. Underlying sinus mechanism. His troponin is elevated at 52. March 06: The patient remains intubated and sedated. In sinus mechanism with 100% ventricular pacing with complete heart block. He is off vasopressors. His urinary output has been good. His neurological status is unclear. He underwent an echocardiogram that showed an ejection fraction of 35 to 40% but it was of difficult quality and no clear segmental wall motion abnormality could be seen. He had no further episodes of ventricular tachycardia. March 07: The patient is awake and alert, extubated. He feels well, denying any dyspnea or chest discomfort. He has no dizziness or palpitations. He continues to be in sinus mechanism. Hemodynamically he is stable on no vasopressors. Reviewing his records the patient had an aortic valve replacement for bicuspid aortic valve and severe aortic regurgitation with no evidence of obstructive CAD. He has not been followed in the office for over 3 years. Medications: IV amiodarone, aspirin, insulin, Plavix 75 mg daily, Lipitor 40 mg daily PHYSICAL EXAMINATION: Blood pressure 131/60 heart rate 50, LUNGS: Clear to auscultation HEART: Regular rate and rhythm, S1, S2. No S3. Systolic ejection murmur, 2/6 ABDOMEN: Soft, no organomegaly, nontender EXTREMETIES: No edema LAB: potassium 3.6, BUN 19, creatinine 1.09, IMPRESSION: 1. Cardiac arrest probably ischemic in a patient with known history of AVR, no prior history of obstructive CAD 2. Status post permanent pacemaker implantation with evidence consistent with generator depletion 3. History of hypertension 4. Status post aortic valve replacement PLAN: 1. Proceed with coronary angiography to assess coronary anatomy and guide treatment, the procedure as well as the risks and the complications were discussed with the patient 2. The patient will require generator change 3. Depending on the results of the cardiac catheterization further recommendations will be made regarding the amiodarone 4. Depending on his progress further recommendations will be made Objective - Vital Signs Vital signs: Vital Signs Temp 99.3 F 03/07/25 04:00 Pulse 49 L 03/07/25 07:00 Resp 28 H 03/07/25 07:00 BP 131/67 03/07/25 07:00 Pulse Ox 95 03/07/25 07:00 FiO2 40 03/06/25 12:00 Intake & Output 03/06/25 03/07/25 03/07/25 18:59 06:59 18:59 Intake Total 429.064 987.116 23 Output Total 370 575 50 Balance 59.064 412.116 -27 Weight 106.8 kg Intake: IV 216 276 23 0.9 NS KVO 180 240 20 Pressure Bag 36 36 3 Intake, IV Titration 213.064 231.116 Amount Amiodarone 450 mg In 231.116 Dextrose 5% in Water 250 ml @ 0.5 MG/MIN 16.667 mls/hr IV .Q15H [facility] Rx#: [id number] Dexmedetomidine/0.9% NaCl 25.009 (Pmx) 400 mcg In Empty Bag 1 bag @ 0.2 MCG/KG/HR 5.34 mls/hr IV .[id number] [facility] Rx#:[id number] propofoL 1,000 mg In 188.055 Empty Bag 1 bag @ 15 MCG/ KG/MIN 9.45 mls/hr IV . [id number] [facility] Rx#:[id number] Oral 480 Output: Urine 370 575 50 Other: Voiding Method Indwelling Catheter Indwelling Catheter ABP, PAP, CO, CI - Last Documented Arterial Blood Pressure 115/60 - Labs CBC & Chem 7: 03/06/25 04:50 03/07/25 05:15 Labs: Abnormal Lab Results - Last 24 Hours (Table) 03/06/25 03/06/25 03/06/25 Range/Units 07:41 11:06 14:21 ABG pH 7.47 H (7.35-7.45) ABG pCO2 33 L (35-45) mmHg ABG Total CO2 25 H (19-24) mmol/L ABG O2 Saturation 98.5 H (94-97) % Sodium (137-145) mmol/L Glucose (74-99) mg/dL POC Glucose (mg/dL) 164 H (70-110) mg/dL Delta Bilirubin 0.8 H (0.0-0.2) mg/dL AST 104 H (17-59) U/L ALT 55 H (4-49) U/L Total Protein 5.9 L (6.3-8.2) g/dL Albumin 3.1 L (3.5-5.0) g/dL 03/06/25 03/06/25 03/06/25 Range/Units 17:18 20:19 23:21 ABG pH (7.35-7.45) ABG pCO2 (35-45) mmHg ABG Total CO2 (19-24) mmol/L ABG O2 Saturation (94-97) % Sodium (137-145) mmol/L Glucose (74-99) mg/dL POC Glucose (mg/dL) 202 H 179 H 153 H (70-110) mg/dL Delta Bilirubin (0.0-0.2) mg/dL AST (17-59) U/L ALT (4-49) U/L Total Protein (6.3-8.2) g/dL Albumin (3.5-5.0) g/dL 03/07/25 Range/Units 05:15 ABG pH (7.35-7.45) ABG pCO2 (35-45) mmHg ABG Total CO2 (19-24) mmol/L ABG O2 Saturation (94-97) % Sodium 135 L (137-145) mmol/L Glucose 157 H (74-99) mg/dL POC Glucose (mg/dL) (70-110) mg/dL Delta Bilirubin (0.0-0.2) mg/dL AST (17-59) U/L ALT (4-49) U/L Total Protein (6.3-8.2) g/dL Albumin (3.5-5.0) g/dL Microbiology - Last 24 Hours (Table) 03/05/25 04:38 Gram Stain - Preliminary Sputum Sputum Culture - Preliminary
[2025-03-07] MEDS: ASPIRIN 325 MG TAB PO STA (08:27)
[2025-03-07] MEDS: ATORVASTATIN 80 MG TAB PO STA (08:28)
[2025-03-07 11:18] LABS: Glucose,Whole Blood 163 mg/dL (70-110)
[2025-03-07] MEDS: MIDAZOLAM 2 MG/2 ML VIAL IVP ONE (12:52)
[2025-03-07] MEDS: fentaNYL (PF) 50 MCG/ML 2 ML AMP IVP ONE (12:52)
[2025-03-07] MEDS: LIDOCAINE 1% INJ 10MG/ML (20 ML MDV) SQ ONE (12:54)
[2025-03-07] MEDS: VERAPAMIL 2.5 MG/ML 2 ML AMP INTRAARTER ONE (12:55)
[2025-03-07] MEDS: HEPARIN SODIUM 1,000 UN/ML (10ML VL) IVP ONE (13:02)
[2025-03-07] MEDS: HEPARIN SODIUM,PORCINE 10,000 UNIT in SODIUM CHLORIDE 0.9% 1,000 ML IRRIGATION PRN (13:05)
[2025-03-07] MEDS: SODIUM CHLORIDE 0.9% 500 ML 500 ML IV ONE (13:05)
[2025-03-07] MEDS: HEPARIN SODIUM,PORCINE (1 ML) 2,500 UNIT in SODIUM CHLORIDE 0.9% 250 ML IRRIGATION PRN (13:06)
[2025-03-07] MEDS: IOPAMIDOL-370 100ML BTL INJ ONE (13:15)
[2025-03-07] MEDS ORDERED: RX INFO: IV CONTRAST WAS GIVEN 1 EACH MISC MISCELLANE PRN (13:28)
--- NOTE | 2025-03-07 13:28 | P.CARDCATH ---
Date of Procedure: 03/07/25 Description of Procedure: DIAGNOSTIC CORONARY ANGIOGRAPHY and LEFT HEART CATH REPORT PROCEDURES PERFORMED: Left heart catheterization Selective coronary angiography Moderate conscious sedation 20 mins Right radial access INDICATION: Cardiac arrest, NSTEMI BRIEF HPI: 69-year-old with prior history of surgical aortic valve replacement in 2011 for severe aortic stenosis with a bovine bioprosthesis. He had a heart catheterization in 2018 which did not show any obstructive coronary artery disease. He presented to the hospital as [id number] cardiac arrest with ventricular fibrillation as initial presenting rhythm. He also had evidence of NSTEMI. For this he was scheduled for heart catheterization procedure to rule out any severe obstructive coronary artery disease CONSENT: I have explained the procedural steps of above-mentioned procedures in layman's terms to the patient. I discussed the risks (including but not limited to stroke, emergent vascular or cardiac surgery or ), benefits and alternative therapies for the above-mentioned procedure. I discussed the risks of sedation/analgesia and blood product administration (if indicated). The patient has indicated understanding and acceptance of these risks. Conscious Sedation: Patient's ECG, heart rate, blood pressure, pulse oximetry were monitored throughout the duration of procedure under my direct supervision. 1 mg Versed and 50 mcg Fentanyl were used for induction of moderate conscious sedation. Total duration of moderate concious sedation 20 minutes. PROCEDURAL DETAILS: Patient was prepped and draped in sterile fashion. 1% lidocaine was infiltrated over the right radial artery. Right radial access was obtained via modified seldinger technique. [Ultrasound was used for radial access]. Medications: 5mg of verapamil was administed in the radial sheet. 6000 Units of Heparin was administed once the catheter reached the aortic root Wires and Catheter used: J wire was advanced under fluroscopy to get to aortic root. 5 cameroonian JR 4 diagnostic catheter was utilized obtain left ventricular pressure and pressure gradint across aortic valve. 5 cameroonian JR 4 diagnostic catheter was used to selectively engage the right coronary ostium. 5 cameroonian JL4 diagnostic catheter was utilized to selectively engage the left coronary ostium. Angiographic images were reviewed in detail. Catheter and wire were removed. Radial sheet was flushed. The right radial sheath was removed and a TR band was placed. Patent hemostasis was achieved. The patient tolerated the procedure well. Patient was transported back to the post catheterization holding area in stable condition. TECHNICAL DETAILS Total radiation: 400 mGy Total fluro time: 5.7 minutes Total contrast used: Isovue [60 ml] Complications: [none] Estimated Blood loss: less than 15 ml HEMODYNAMICS: Aortic Pressure: 130/72 mmHg. Aortic valve could not be crossed as a bioprosthetic aortic valve. LV pressures could not be obtained. There was no significant gradient across the aortic valve. SELECTIVE CORONARY ARTERIOGRAPHY: LEFT MAIN: The left main is short and large caliber vessel. It bifurcates into the LAD and circumflex. Left main appears angiographically normal. LEFT ANTERIOR DESCENDING CORONARY ARTERY: LAD is a large-caliber vessel and reaches up to the apex. It appears angiographically patent. Mid LAD gives rise to a tiny branches that [employer] graphically patent. LEFT CIRCUMFLEX CORONARY ARTERY: It is nondominant vessel. LCx is small caliber and appears scintigraphically patent with mild luminal irregularities. RIGHT CORONARY ARTERY: Dominant vessel. Proximal mid and distal RCA appears angiographically patent. Distal RCA gives rise to PDA and PL branch which appears angiographically patent. IMPRESSION: Angiographically patent with mild coronary Neumiller irregularities in LCx territory Bioprosthetic aortic valve which could not be crossed to obtain any LV pressures PLAN: Medical management, 75 cc/h of normal saline for 4 hours N.p.o. after midnight Plan for BiV ICD for secondary ventricular tachycardia prevention and complete heart block management. Performing Physician Robson Malcolm MD, FACC, RPVI Thank you for allowing [facility] to participate in this patient's care. Feel free to reach out in case of any followup questions.
--- NOTE | 2025-03-07 13:41 | P.PN ---
Subjective Progress Note Date: 03/07/25 Patient is a 69-year-old male with little known past medical history. No prior records available for review. Apparently, patient had called EMS for his brother last night, when they arrived, he collapsed. Found to be in V-fib cardiac arrest. He was defibrillated 3 times, a total of 3 rounds of epinep hrine were given, loaded with amiodarone, and intubated in the field. ROSC was achieved, with an estimated 20-minute downtime. At some point, patient self extubated and was reintubated in the emergency department. Chest CT angiogram done in the emergency department did not show any evidence of pulmonary emboli. Findings concerning for CHF. A bedside echo was reportedly done by Cardiology in the emergency department and unofficial reports found to have a severely low ejection fraction, around 10 to 15%. Serial troponins elevated at 1.25 and subsequently 52.1. EKG: Ventricular paced rhythm at 50 bpm. Remaining lab work including a CBC with a WBC count of 21.2, hemoglobin 15.3, platelets 161. CMP: Sodium 142, potassium 3.4, chloride 105, serum bicarb 8, BUN 11, creatinine 0.93, glucose 403. Lactic 2.7. AST 178, ALT 73, ALP 125. Abdominal ultrasound showing cholelithiasis without cholecystitis and hepatic steatosis with hepatomegaly. Repeat labs showing improvement in patient's metabolic acidosis and serum bicarb of 16. Patient has developed acute kidney injury, likely cardi orenal. Patient also noted to have maroon gastric content from his OG tube. Gastroccult was positive. Patient currently being evaluated in the intensive care unit. He remains intubated to mechanical ventilator. Most recent available chest x-ray showing the endotracheal tube above the karen, orogastric tube which should be advanced for 5 cm, patchy appearing pulmonary edema, old sternotomy wires and pacemaker generator in the left chest. Previous ABGs showing a PaO2 of 231, pCO2 of 38, pH of 7.14. Previous ventilator changes made by Dr. Mays. Repeat gases, showing improvement in patient's acid-base balance with a PaO2 of 52, pCO2 of 37, pH of 7.34. Current ventilator settings assist-c ontrol, respiratory rate 24, tidal line 450, FiO2 50%, PEEP of 10. SpO2 reading 100% on bedside monitor. He is sedated on propofol at 45 mcg/kg/min. Synchronous with current settings. Difficult to assess neurostatus due to level of sedation. Norepinephrine infusing at 0.03 mcg/kg/min. Also, amiodarone infusing at 0.5 mg/min. Patient's rhythm on bedside monitor is V-paced at 50 bpm. Previously, patient was fluid resuscitated with a total of 2.5 L of crystalloid bolus. Urine output is low less than 30 cc/h On 03/06/2025, the patient is being seen for a follow-up. This patient is postc ardiac arrest. On today's evaluation, he is on propofol running at 45 mcg/kg/min., Comfortable. Grimaces to painful stimulation. Is on assist- control mode at rate of 24, tidal volume of 450, FiO2 40% with a PEEP of 8. Blood gas showed pH of 7.47 with a XYR810 and PO218. chest x-ray remains clear. Orotracheal tube is in good location. Cardiac rhythm is paced, VVI going to the patient's pacemaker generator has run out of battery and he is on a backup VVI at rate of 50. He remains on amiodarone drip at 0.5 mg/min. He is off norepinephrine as of 9:00 yesterday. He is on normal saline at KVO. He remains on aspirin and Plavix. He remains on insulin in the form of Lantus 10 units twice daily. Afebrile. Normotensive. The WBC count is 11.9, hemoglobin 14 and platelet count of 102. Sodium is 135, potassium is 3.5, he is 20 mL creatinine of 1.2. LFTs are mildly elevated with an AST of 104 and ALT of 55. The echocardiogram was completed and the patient was found to have systolic heart failure with an ejection fraction of 35 to 40%. Valves were not adequately visualized. He remains n.p.o. for now. Cardiology is on the case. The patient will receive a sedation holiday. Will be making further planning regarding the need for cardiac catheterization within the next 24 hours. He is on Lipitor 40 mg p.o. daily. On 03/07/2025, the patient is awake and alert. The patient was extubated on 03/06/2025 and the patient is currently on oxygen at 3 L/min nasal cannula. The patient is currently off pressors. Amiodarone still running at 0.5 mg/min. He is VVI paced at the rate of 50. Awake and alert and communicating. Denies having any significant respiratory distress. Denies having any chest pain. Adequate urine output. The white second 11.1 with a heme of 4.8 and a platelet count of 98. BUN is 19 with a creatinine of 1.09 and sodium levels at 135. The patient is awaiting a cardiac catheterization. Remains on aspirin and Plavix. Remains on Lantus insulin 10 units twice daily and NovoLog sliding scale coverage. Remains on IV amiodarone. Objective - Vital Signs Vital signs: Vital Signs Temp 98.9 F 03/07/25 08:00 Pulse 49 L 03/07/25 08:00 Resp 17 03/07/25 09:00 BP 144/77 03/07/25 09:00 Pulse Ox 96 03/07/25 09:00 FiO2 40 03/06/25 12:00 Intake & Output 03/06/25 03/07/25 03/07/25 18:59 06:59 18:59 Intake Total 429.064 987.116 69 Output Total 370 575 190 Balance 59.064 412.116 -121 Weight 106.8 kg Intake: IV 216 276 69 0.9 NS KVO 180 240 60 Pressure Bag 36 36 9 Intake, IV Titration 213.064 231.116 Amount Amiodarone 450 mg In 231.116 Dextrose 5% in Water 250 ml @ 0.5 MG/MIN 16.667 mls/hr IV .Q15H [facility] Rx#: [id number] Dexmedetomidine/0.9% NaCl 25.009 (Pmx) 400 mcg In Empty Bag 1 bag @ 0.2 MCG/KG/HR 5.34 mls/hr IV .[id number] [facility] Rx#:[id number] propofoL 1,000 mg In 188.055 Empty Bag 1 bag @ 15 MCG/ KG/MIN 9.45 mls/hr IV . [id number] [facility] Rx#:[id number] Oral 480 Output: Urine 370 575 190 Other: Voiding Method Indwelling Catheter Indwelling Catheter Indwelling Catheter ABP, PAP, CO, CI - Last Documented Arterial Blood Pressure 115/60 - Exam GENERAL EXAM: Sedated, 69-year-old male, awake and alert and currently on 3 L of oxygen by nasal cannula. HEAD: Normocephalic and atraumatic EYES: Normal reaction of pupils, equal size. Anicteric. No nystagmus. NOSE: Clear with pink turbinates. THROAT: No erythema or exudates. NECK: No masses, no JVD. CHEST: Left chest pacemaker generator. Remote appearing sternotomy incision. LUNGS: Equal air entry with no crackles, wheeze, rhonchi or dullness. CVS: S1 and S2 normal with no audible murmur, regular rhythm. No extra heart sounds, the patient is V paced with a rate of 50. ABDOMEN: No hepatosplenomegaly, active bowel sounds, no guarding or rigidity. SPINE: No scoliosis or deformity SKIN: No rashes CENTRAL NERVOUS SYSTEM: Neurologically, the patient is awake and alert and the patient does not have any focal neurological deficit. Cranial nerves are essentially intact. EXTREMITIES: There is no peripheral edema, clubbing, or cyanosis. Peripheral pulses are weak and thready. Extremities warm. - Labs CBC & Chem 7: 03/07/25 05:15 03/07/25 05:15 Labs: Abnormal Lab Results - Last 24 Hours (Table) 03/06/25 03/06/25 03/06/25 Range/Units 11:06 14:21 17:18 WBC (4.50-10.00) 10*3/uL RBC (4.40-5.60) 10*6/uL Hgb (13.0-17.0) g/dL Hct (39.6-50.0) % MCV (80.0-97.0) fL MCH (27.0-32.0) pg ABG pH 7.47 H (7.35-7.45) ABG pCO2 33 L (35-45) mmHg ABG Total CO2 25 H (19-24) mmol/L ABG O2 Saturation 98.5 H (94-97) % Sodium (137-145) mmol/L Glucose (74-99) mg/dL POC Glucose (mg/dL) 164 H 202 H (70-110) mg/dL 03/06/25 03/06/25 03/07/25 Range/Units 20:19 23:21 05:15 WBC (4.50-10.00) 10*3/uL RBC (4.40-5.60) 10*6/uL Hgb (13.0-17.0) g/dL Hct (39.6-50.0) % MCV (80.0-97.0) fL MCH (27.0-32.0) pg ABG pH (7.35-7.45) ABG pCO2 (35-45) mmHg ABG Total CO2 (19-24) mmol/L ABG O2 Saturation (94-97) % Sodium 135 L (137-145) mmol/L Glucose 157 H (74-99) mg/dL POC Glucose (mg/dL) 179 H 153 H (70-110) mg/dL 03/07/25 Range/Units 05:15 WBC 11.17 H (4.50-10.00) 10*3/uL RBC 3.73 L (4.40-5.60) 10*6/uL Hgb 12.8 L (13.0-17.0) g/dL Hct 37.2 L (39.6-50.0) % MCV 99.7 H (80.0-97.0) fL MCH 34.3 H (27.0-32.0) pg ABG pH (7.35-7.45) ABG pCO2 (35-45) mmHg ABG Total CO2 (19-24) mmol/L ABG O2 Saturation (94-97) % Sodium (137-145) mmol/L Glucose (74-99) mg/dL POC Glucose (mg/dL) (70-110) mg/dL Microbiology - Last 24 Hours (Table) 03/05/25 04:38 Gram Stain - Preliminary Sputum Sputum Culture - Preliminary Assessment and Plan Assessment: [id number]-[id number], witnessed cardiac arrest, presenting rhythm was ventricular fibrillation with prolonged downtime estimated at 20 minutes per ER documentation. The patient was extubated on 03/06/2025 and the patient is currently awake and alert and communicating. Hemodynamically stable on no pressors. Systolic heart failure with an ejection fraction of 35%. Valvular function could not be assessed on echocardiogram. Acute hypoxemic respiratory failure, secondary to cardiac arrest. Patient is extubated and the patient is currently on 3 L of oxygen by nasal cannula. Hypotension and shock, possibly cardiogenic, improved and the patient is currently off pressors, hemodynamically stable at this point Anion gap metabolic acidosis, recovered Acute kidney injury, cardiorenal, improved History of diabetes mellitus, with hyperglycemia, currently on Lantus insulin 10 units twice daily and sliding scale coverage. Acute leukocytosis, likely reactive, improved Hypokalemia, replaced GI bleed, with maroon gastric content in the NG tube. Currently extubated the patient has no NG tube in place and the patient is not showing any signs of upper and lower GI bleeding. History of open heart surgery, possibly a valve surgery. Unsure if the patient had coronary artery bypass. History of permanent pacemaker, currently ventricularly paced rhythm, the pacemaker generator battery is low and had to be replaced approximately 2 years ago. This has not been done. Currently patient is being VVI paced at a rate of 50. Plan: Titrate oxygen flow to maintain saturation above 90%, currently on 3 L Patient is currently off norepinephrine infusion. Amiodarone infusing per protocol at 0.5 mg/min Chest CT angiogram did not show evidence of pulmonary embolism Cardiac catheterization is to be performed today. Patient is being paced at a rate of 50, VVI mode and the pacemaker generator needs to be replaced at a later stage. Continue aspirin and Plavix Continue Lipitor Continue Lantus insulin Adequate mental status Will coordinate care with cardiology. Critical care evaluation was done in 40 minutes. Work in progress. Time with Patient: Greater than 30
[2025-03-07 13:57] LABS: Glucose,Whole Blood 124 mg/dL (70-110)
[2025-03-07] MEDS: SODIUM CHLORIDE 0.9% 1,000 ML IV SCH (14:00)
--- NOTE | 2025-03-07 14:01 | P.PN ---
Subjective Progress Note Date: 03/07/25 patient is a 69-year-old gentleman with past medical history significant for coronary artery disease who presented to the ER after having a witnessed cardiac arrest. History is limited and most of is obtained from the EMR. Apparently patient had called EMS for his brother who had fallen, when EMS came patient collapsed while helping his brother and EMS. EMS started working on the patient and found him to be in V-fib, CPR was initiated, patient was intubated and received 3 rounds of epi, patient also shocked 3 times. Patient was down for at least 20 minutes before the return of ROSC. En route to ER, patient self extubated but patient was later intubated again by ER physician EKG done in the ER showed heart rate of , no ST segment elevation or depression seen, no T-wave inversions seen. Chest x-ray done in the ER ET tube 5.3 cm above the karen, no acute pulmonary process CT head done showed no acute intracranial process CT cervical spine done showed no acute fracture CTA chest done showed no evidence of pneumonia, cholelithiasis seen. Patient admitted to ICU 03/05. Patient seen and examined. Patient currently on mechanical ventilation. Patient is currently on Levophed, amiodarone. Patient overnight had some maroon-colored oozing from his OG tube 03/06. Patient seen and examined. Patient continues to be on ventilation, currently having sedation holiday, patient was responsive according to nursing staff. Currently on amiodarone drip, patient has been weaned off the Levophed. 03/07. Patient seen and examined. Patient was extubated overnight. Currently patient is doing much better. Still complaining of throat pain because of intubation. Currently n.p.o. going for cardiac catheter REVIEW OF SYSTEMS: Denies any shortness of breath Denies any palpitation. Denies nausea or vomiting PHYSICAL EXAMINATION: GENERAL: The patient is alert HEENT: Pupils are round and equally reacting to light. EOMI. No scleral icterus. No conjunctival pallor. Normocephalic, atraumatic. No pharyngeal erythema. No thyromegaly. CARDIOVASCULAR: S1 and S2 present. No murmurs, rubs, or gallops. PULMONARY: Chest is clear to auscultation, no wheezing or crackles. ABDOMEN: Soft, nontender, nondistended, normoactive bowel sounds. No palpable organomegaly. MUSCULOSKELETAL: No joint swelling or deformity. EXTREMITIES: No cyanosis, clubbing, or pedal edema. NEUROLOGICAL: Moving all extremities SKIN: No rashes. Assessment and plan Cardiac arrest V-fib arrest Acute systolic CHF Cardiomyopathy Cardiogenic shock Acute hypoxic respiratory failure NSTEMI Acute kidney injury, cardiorenal Acute leukocytosis, likely reactive Hypokalemia, replaced Hyperglycemia Acute transaminitis History of coronary artery disease History of diabetes mellitus Monitor vital signs Monitor CBC Monitor CMP Continue telemetry monitoring Continue oxygen supplementation Continue aspirin, Plavix, Lipitor Continue amiodarone drip Continue IV Protonix Cardiology following, planning cardiac cath today Critical care following Labs and medication were reviewed.. Continue same treatment. Continue with symptomatic treatment. Resume home medication. Monitor labs and vitals. DVT and GI prophylaxis. Further recommendations as per clinical course of the patient Dictation was produced using [employer] dictation software. please excuse any grammatical, word or spelling errors. Objective - Vital Signs Vital signs: Vital Signs Temp 98.7 F 03/07/25 12:00 Pulse 49 L 03/07/25 12:00 Resp 12 03/07/25 12:00 BP 139/79 03/07/25 12:00 Pulse Ox 99 03/07/25 12:00 FiO2 40 03/06/25 12:00 Intake & Output 03/06/25 03/07/25 03/07/25 18:59 06:59 18:59 Intake Total 429.064 987.116 849.116 Output Total 370 575 275 Balance 59.064 412.116 574.116 Weight 106.8 kg Intake: IV 216 276 503 0.9 NS KVO 180 240 285 Pressure Bag 36 36 18 Intake, IV Titration 213.064 231.116 346.116 Amount Amiodarone 450 mg In 231.116 246.116 Dextrose 5% in Water 250 ml @ 0.5 MG/MIN 16.667 mls/hr IV .Q15H [facility] Rx#: [id number] Dexmedetomidine/0.9% NaCl 25.009 (Pmx) 400 mcg In Empty Bag 1 bag @ 0.2 MCG/KG/HR 5.34 mls/hr IV .[id number] [facility] Rx#:[id number] Potassium Chloride 10 meq 100 In Water For Injection 1 100ml.bag @ 100 mls/hr IVPB Q1H [facility] Rx#: [id number] propofoL 1,000 mg In 188.055 Empty Bag 1 bag @ 15 MCG/ KG/MIN 9.45 mls/hr IV . [id number] [facility] Rx#:[id number] Oral 480 Output: Urine 370 575 275 Other: Voiding Method Indwelling Catheter Indwelling Catheter Indwelling Catheter ABP, PAP, CO, CI - Last Documented Arterial Blood Pressure 115/60 - Labs CBC & Chem 7: 03/07/25 05:15 03/07/25 05:15 Labs: Abnormal Lab Results - Last 24 Hours (Table) 03/06/25 03/06/25 03/06/25 Range/Units 14:21 17:18 20:19 WBC (4.50-10.00) 10*3/uL RBC (4.40-5.60) 10*6/uL Hgb (13.0-17.0) g/dL Hct (39.6-50.0) % MCV (80.0-97.0) fL MCH (27.0-32.0) pg Plt Count (140-440) 10*3/uL Neutrophils # (1.80-7.70) 10*3/uL Eosinophils # (0.04-0.35) 10*3/uL ABG pH 7.47 H (7.35-7.45) ABG pCO2 33 L (35-45) mmHg ABG Total CO2 25 H (19-24) mmol/L ABG O2 Saturation 98.5 H (94-97) % Sodium (137-145) mmol/L Glucose (74-99) mg/dL POC Glucose (mg/dL) 202 H 179 H (70-110) mg/dL 03/06/25 03/07/25 03/07/25 Range/Units 23:21 05:15 05:15 WBC 11.17 H (4.50-10.00) 10*3/uL RBC 3.73 L (4.40-5.60) 10*6/uL Hgb 12.8 L (13.0-17.0) g/dL Hct 37.2 L (39.6-50.0) % MCV 99.7 H (80.0-97.0) fL MCH 34.3 H (27.0-32.0) pg Plt Count 98 L (140-440) 10*3/uL Neutrophils # 7.78 H (1.80-7.70) 10*3/uL Eosinophils # 0.03 L (0.04-0.35) 10*3/uL ABG pH (7.35-7.45) ABG pCO2 (35-45) mmHg ABG Total CO2 (19-24) mmol/L ABG O2 Saturation (94-97) % Sodium 135 L (137-145) mmol/L Glucose 157 H (74-99) mg/dL POC Glucose (mg/dL) 153 H (70-110) mg/dL 03/07/25 03/07/25 Range/Units 11:18 13:53 WBC (4.50-10.00) 10*3/uL RBC (4.40-5.60) 10*6/uL Hgb (13.0-17.0) g/dL Hct (39.6-50.0) % MCV (80.0-97.0) fL MCH (27.0-32.0) pg Plt Count (140-440) 10*3/uL Neutrophils # (1.80-7.70) 10*3/uL Eosinophils # (0.04-0.35) 10*3/uL ABG pH (7.35-7.45) ABG pCO2 (35-45) mmHg ABG Total CO2 (19-24) mmol/L ABG O2 Saturation (94-97) % Sodium (137-145) mmol/L Glucose (74-99) mg/dL POC Glucose (mg/dL) 163 H 124 H (70-110) mg/dL Microbiology - Last 24 Hours (Table) 03/05/25 04:38 Gram Stain - Final Sputum Sputum Culture - Final
[2025-03-07] MEDS: IOPAMIDOL-370 100ML BTL IVP ONE (15:00)
[2025-03-07 17:57] LABS: Glucose,Whole Blood 181 mg/dL (70-110)
[2025-03-07 20:44] LABS: Glucose,Whole Blood 145 mg/dL (70-110)
[2025-03-08 03:39] LABS: Basophils # (A) 0.05 10*3/uL (0.00-0.10); Basophils % (A) 0.5 %; Eosinophils # (A) 0.06 10*3/uL (0.04-0.35); Eosinophils % (A) 0.6 %; HCT 36.5 % (39.6-50.0); HGB 12.7 g/dL (13.0-17.0); Lymphocytes # (A) 1.75 10*3/uL (0.90-5.00); Lymphocytes % (A) 18.1 %; MCH 35.0 pg (27.0-32.0); MCHC 34.8 g/dL (32.0-37.0); MCV 100.6 fL (80.0-97.0); Monocytes # (A) 1.01 10*3/uL (0.20-1.00); Monocytes % (A) 10.4 %; Neutrophils # (A) 6.79 10*3/uL (1.80-7.70); Neutrophils % (A) 70.1 %; Platelet Count 107 10*3/uL (140-440); RBC 3.63 10*6/uL (4.40-5.60); RDW 12.3 % (11.5-14.5); WBC 9.69 10*3/uL (4.50-10.00)
[2025-03-08 03:56] LABS: African American GFR (CKD) >90 (>60 ml/min/1.73 sqM); Anion Gap 12 mmol/L; Blood Urea Nitrogen 18 mg/dL (9-20); Calcium 8.5 mg/dL (8.4-10.2); Carbon Dioxide 22 mmol/L (22-30); Chloride 103 mmol/L (98-107); Glucose 132 mg/dL (74-99); Non-African American GFR(CKD) 90 (>60 ml/min/1.73 sqM); Potassium 3.8 mmol/L (3.5-5.1); Sodium 137 mmol/L (137-145)
[2025-03-08] MEDS: POTASSIUM CHLORIDE 10 MEQ in WATER FOR INJECTION 1 100ML.BAG IVPB SCH (05:42)
[2025-03-08 05:47] LABS: Glucose,Whole Blood 135 mg/dL (70-110)
--- NOTE | 2025-03-08 07:34 | P.PN ---
Subjective Progress Note Date: 03/08/25 PROGRESS NOTE The patient is a 69-year-old male with a history of CAD, status post AVR, status post permanent pacemaker implantation who presented with cardiac arrest and prolonged CPR. His EKG revealed paced rhythm with underlying sinus mechanism and paced at VVI. Apparently had a V-fib arrest. The patient is not anticoagulated because of evidence of GI bleeding. Full details of prior history is unclear. He remains intubated and sedated. Underlying sinus mechanism. His troponin is elevated at 52. March 06: The patient remains intubated and sedated. In sinus mechanism with 100% ventricular pacing with complete heart block. He is off vasopressors. His urinary output has been good. His neurological status is unclear. He underwent an echocardiogram that showed an ejection fraction of 35 to 40% but it was of difficult quality and no clear segmental wall motion abnormality could be seen. He had no further episodes of ventricular tachycardia. March 07: The patient is awake and alert, extubated. He feels well, denying any dyspnea or chest discomfort. He has no dizziness or palpitations. He continues to be in sinus mechanism. Hemodynamically he is stable on no vasopressors. Reviewing his records the patient had an aortic valve replacement for bicuspid aortic valve and severe aortic regurgitation with no evidence of obstructive CAD. He has not been followed in the office for over 3 years. March 08: The patient underwent coronary angiography yesterday and had no evidence of o bstructive CAD. He continues to be in sinus mechanism with 100% VVI pacing. He has soreness in the left side of the chest related to his CPR. His echocardiogram showed evidence of cardiomyopathy. He has no further episodes of ventricular tachycardia. He is scheduled to undergo ICD implantation by Dr. Garg. Medications: IV amiodarone, aspirin, insulin, Plavix 75 mg daily, Lipitor 40 mg daily PHYSICAL EXAMINATION: Blood pressure 125/70 heart rate 50, LUNGS: Clear to auscultation HEART: Regular rate and rhythm, S1, S2. No S3. Systolic ejection murmur, 2/6 ABDOMEN: Soft, no organomegaly, nontender EXTREMETIES: No edema, right radial pulse intact LAB: Potassium 3.8, BUN 18, creatinine 0.87, hemoglobin 12.7 IMPRESSION: 1. Cardiac arrest, nonischemic with cardiomyopathy 2. Status post permanent pacemaker implantation with evidence consistent with generator depletion 3. History of hypertension 4. Status post aortic valve replacement PLAN: 1. Change to oral amiodarone 2. Stop Plavix 3. Proceed with ICD implantation in view of the sudden cardiac arrest and the cardiomyopathy 4. Depending on his progress further recommendations will be made 5. Once stabilized the patient may require JONH to further visualize his aortic valve bioprosthesis Objective - Vital Signs Vital signs: Vital Signs Temp 98.8 F 03/08/25 04:00 Pulse 50 L 03/08/25 07:00 Resp 21 03/08/25 07:00 BP 125/74 03/08/25 07:00 Pulse Ox 92 L 03/08/25 07:00 FiO2 40 03/06/25 12:00 Intake & Output 03/07/25 03/08/25 03/08/25 18:59 06:59 18:59 Intake Total 1239.116 926 13 Output Total 490 570 50 Balance 749.116 356 -37 Weight 107.7 kg Intake: IV 893 676 13 0.9 NS KVO 660 640 10 Pressure Bag 33 36 3 Intake, IV Titration 346.116 250 Amount Amiodarone 450 mg In 246.116 250 Dextrose 5% in Water 250 ml @ 0.5 MG/MIN 16.667 mls/hr IV .Q15H [facility] Rx#: [id number] Potassium Chloride 10 meq 100 In Water For Injection 1 100ml.bag @ 100 mls/hr IVPB Q1H [facility] Rx#: [id number] Output: Urine 490 570 50 Other: Voiding Method Indwelling Catheter Indwelling Catheter ABP, PAP, CO, CI - Last Documented Arterial Blood Pressure 115/60 - Labs CBC & Chem 7: 03/08/25 02:55 03/08/25 02:55 Labs: Abnormal Lab Results - Last 24 Hours (Table) 03/07/25 03/07/25 03/07/25 Range/Units 05:15 11:18 13:53 WBC 11.17 H (4.50-10.00) 10*3/uL RBC 3.73 L (4.40-5.60) 10*6/uL Hgb 12.8 L (13.0-17.0) g/dL Hct 37.2 L (39.6-50.0) % MCV 99.7 H (80.0-97.0) fL MCH 34.3 H (27.0-32.0) pg Plt Count 98 L (140-440) 10*3/uL Neutrophils # 7.78 H (1.80-7.70) 10*3/uL Monocytes # (0.20-1.00) 10*3/uL Eosinophils # 0.03 L (0.04-0.35) 10*3/uL Glucose (74-99) mg/dL POC Glucose (mg/dL) 163 H 124 H (70-110) mg/dL 03/07/25 03/07/25 03/08/25 Range/Units 17:56 20:43 02:55 WBC (4.50-10.00) 10*3/uL RBC 3.63 L (4.40-5.60) 10*6/uL Hgb 12.7 L (13.0-17.0) g/dL Hct 36.5 L (39.6-50.0) % MCV 100.6 H (80.0-97.0) fL MCH 35.0 H (27.0-32.0) pg Plt Count 107 L (140-440) 10*3/uL Neutrophils # (1.80-7.70) 10*3/uL Monocytes # 1.01 H (0.20-1.00) 10*3/uL Eosinophils # (0.04-0.35) 10*3/uL Glucose (74-99) mg/dL POC Glucose (mg/dL) 181 H 145 H (70-110) mg/dL 03/08/25 03/08/25 Range/Units 02:55 05:46 WBC (4.50-10.00) 10*3/uL RBC (4.40-5.60) 10*6/uL Hgb (13.0-17.0) g/dL Hct (39.6-50.0) % MCV (80.0-97.0) fL MCH (27.0-32.0) pg Plt Count (140-440) 10*3/uL Neutrophils # (1.80-7.70) 10*3/uL Monocytes # (0.20-1.00) 10*3/uL Eosinophils # (0.04-0.35) 10*3/uL Glucose 132 H (74-99) mg/dL POC Glucose (mg/dL) 135 H (70-110) mg/dL Microbiology - Last 24 Hours (Table) 03/05/25 04:38 Gram Stain - Final Sputum Sputum Culture - Final
[2025-03-08] MEDS: AMIODARONE 200 MG TAB PO SCH (08:13)
[2025-03-08 11:44] LABS: Glucose,Whole Blood 133 mg/dL (70-110)
[2025-03-08] MEDS ORDERED: SODIUM CHLORIDE 0.9% 1,000 ML IV SCH (11:45)
--- NOTE | 2025-03-08 12:06 | P.PN ---
Subjective Progress Note Date: 03/08/25 Patient is a 69-year-old male with little known past medical history. No prior records available for review. Apparently, patient had called EMS for his brother last night, when they arrived, he collapsed. Found to be in V-fib cardiac arrest. He was defibrillated 3 times, a total of 3 rounds of epinep hrine were given, loaded with amiodarone, and intubated in the field. ROSC was achieved, with an estimated 20-minute downtime. At some point, patient self extubated and was reintubated in the emergency department. Chest CT angiogram done in the emergency department did not show any evidence of pulmonary emboli. Findings concerning for CHF. A bedside echo was reportedly done by Cardiology in the emergency department and unofficial reports found to have a severely low ejection fraction, around 10 to 15%. Serial troponins elevated at 1.25 and subsequently 52.1. EKG: Ventricular paced rhythm at 50 bpm. Remaining lab work including a CBC with a WBC count of 21.2, hemoglobin 15.3, platelets 161. CMP: Sodium 142, potassium 3.4, chloride 105, serum bicarb 8, BUN 11, creatinine 0.93, glucose 403. Lactic 2.7. AST 178, ALT 73, ALP 125. Abdominal ultrasound showing cholelithiasis without cholecystitis and hepatic steatosis with hepatomegaly. Repeat labs showing improvement in patient's metabolic acidosis and serum bicarb of 16. Patient has developed acute kidney injury, likely cardi orenal. Patient also noted to have maroon gastric content from his OG tube. Gastroccult was positive. Patient currently being evaluated in the intensive care unit. He remains intubated to mechanical ventilator. Most recent available chest x-ray showing the endotracheal tube above the karen, orogastric tube which should be advanced for 5 cm, patchy appearing pulmonary edema, old sternotomy wires and pacemaker generator in the left chest. Previous ABGs showing a PaO2 of 231, pCO2 of 38, pH of 7.14. Previous ventilator changes made by Dr. Mays. Repeat gases, showing improvement in patient's acid-base balance with a PaO2 of 52, pCO2 of 37, pH of 7.34. Current ventilator settings assist-c ontrol, respiratory rate 24, tidal line 450, FiO2 50%, PEEP of 10. SpO2 reading 100% on bedside monitor. He is sedated on propofol at 45 mcg/kg/min. Synchronous with current settings. Difficult to assess neurostatus due to level of sedation. Norepinephrine infusing at 0.03 mcg/kg/min. Also, amiodarone infusing at 0.5 mg/min. Patient's rhythm on bedside monitor is V-paced at 50 bpm. Previously, patient was fluid resuscitated with a total of 2.5 L of crystalloid bolus. Urine output is low less than 30 cc/h On 03/06/2025, the patient is being seen for a follow-up. This patient is postc ardiac arrest. On today's evaluation, he is on propofol running at 45 mcg/kg/min., Comfortable. Grimaces to painful stimulation. Is on assist- control mode at rate of 24, tidal volume of 450, FiO2 40% with a PEEP of 8. Blood gas showed pH of 7.47 with a CEA011 and PO218. chest x-ray remains clear. Orotracheal tube is in good location. Cardiac rhythm is paced, VVI going to the patient's pacemaker generator has run out of battery and he is on a backup VVI at rate of 50. He remains on amiodarone drip at 0.5 mg/min. He is off norepinephrine as of 9:00 yesterday. He is on normal saline at KVO. He remains on aspirin and Plavix. He remains on insulin in the form of Lantus 10 units twice daily. Afebrile. Normotensive. The WBC count is 11.9, hemoglobin 14 and platelet count of 102. Sodium is 135, potassium is 3.5, he is 20 mL creatinine of 1.2. LFTs are mildly elevated with an AST of 104 and ALT of 55. The echocardiogram was completed and the patient was found to have systolic heart failure with an ejection fraction of 35 to 40%. Valves were not adequately visualized. He remains n.p.o. for now. Cardiology is on the case. The patient will receive a sedation holiday. Will be making further planning regarding the need for cardiac catheterization within the next 24 hours. He is on Lipitor 40 mg p.o. daily. On 03/07/2025, the patient is awake and alert. The patient was extubated on 03/06/2025 and the patient is currently on oxygen at 3 L/min nasal cannula. The patient is currently off pressors. Amiodarone still running at 0.5 mg/min. He is VVI paced at the rate of 50. Awake and alert and communicating. Denies having any significant respiratory distress. Denies having any chest pain. Adequate urine output. The white second 11.1 with a heme of 4.8 and a platelet count of 98. BUN is 19 with a creatinine of 1.09 and sodium levels at 135. The patient is awaiting a cardiac catheterization. Remains on aspirin and Plavix. Remains on Lantus insulin 10 units twice daily and NovoLog sliding scale coverage. Remains on IV amiodarone. On 03/08/25, the patient is awake and alert and denies having any specific complaints. Currently on 2 L of O2 by nasal cannula. He underwent a cardiac catheterization yesterday and the patient was found to have nonocclusive disease and no intervention has been done. Plavix has been discontinued and the patient is currently on aspirin. IV amiodarone has been discontinued and the patient is currently on oral amiodarone, 400 mg p.o. twice a day. The patient is also started on metoprolol 25 mg p.o. twice daily. Noted the patient is in a paced rhythm, VVI mode at rate of 50. No other new complaints otherwise for now. No chest pain. No shortness of breath. The white cell count is 9.6 with a hemoglobin 12.7 and a platelet count of 107. BUN is 18 with a creatinine of 0.8 and a sodium level is 137. Adequate urine output. There will patient is being followed up by cardiology. The plan is to insert a new pacemaker generator is the current generator is running of a very low battery. Remains on normal sa line at rate of 50 cc an hour. Objective - Vital Signs Vital signs: Vital Signs Temp 99.2 F 03/08/25 08:00 Pulse 50 L 03/08/25 09:00 Resp 18 03/08/25 09:00 BP 151/70 03/08/25 09:00 Pulse Ox 96 03/08/25 09:00 FiO2 40 03/06/25 12:00 Intake & Output 03/07/25 03/08/25 03/08/25 18:59 06:59 18:59 Intake Total 1239.116 926 33 Output Total 490 570 165 Balance 749.116 356 -132 Weight 107.7 kg Intake: IV 893 676 33 0.9 NS KVO 660 640 30 Pressure Bag 33 36 3 Intake, IV Titration 346.116 250 Amount Amiodarone 450 mg In 246.116 250 Dextrose 5% in Water 250 ml @ 0.5 MG/MIN 16.667 mls/hr IV .Q15H [facility] Rx#: [id number] Potassium Chloride 10 meq 100 In Water For Injection 1 100ml.bag @ 100 mls/hr IVPB Q1H [facility] Rx#: [id number] Output: Urine 490 570 165 Other: Voiding Method Indwelling Catheter Indwelling Catheter Indwelling Catheter ABP, PAP, CO, CI - Last Documented Arterial Blood Pressure 115/60 - Exam GENERAL EXAM: Sedated, 69-year-old male, awake and alert and currently on 2L of oxygen by nasal cannula. HEAD: Normocephalic and atraumatic EYES: Normal reaction of pupils, equal size. Anicteric. No nystagmus. NOSE: Clear with pink turbinates. THROAT: No erythema or exudates. NECK: No masses, no JVD. CHEST: Left chest pacemaker generator. Remote appearing sternotomy incision. LUNGS: Equal air entry with no crackles, wheeze, rhonchi or dullness. CVS: S1 and S2 normal with no audible murmur, regular rhythm. No extra heart sounds, the patient is V paced with a rate of 50. ABDOMEN: No hepatosplenomegaly, active bowel sounds, no guarding or rigidity. SPINE: No scoliosis or deformity SKIN: No rashes CENTRAL NERVOUS SYSTEM: Neurologically, the patient is awake and alert and the patient does not have any focal neurological deficit. Cranial nerves are essentially intact. EXTREMITIES: There is no peripheral edema, clubbing, or cyanosis. Peripheral pulses are weak and thready. Extremities warm. - Labs CBC & Chem 7: 03/08/25 02:55 03/08/25 02:55 Labs: Abnormal Lab Results - Last 24 Hours (Table) 03/07/25 03/07/25 03/07/25 Range/Units 05:15 11:18 13:53 RBC (4.40-5.60) 10*6/uL Hgb (13.0-17.0) g/dL Hct (39.6-50.0) % MCV (80.0-97.0) fL MCH (27.0-32.0) pg Plt Count 98 L (140-440) 10*3/uL Neutrophils # 7.78 H (1.80-7.70) 10*3/uL Monocytes # (0.20-1.00) 10*3/uL Eosinophils # 0.03 L (0.04-0.35) 10*3/uL Glucose (74-99) mg/dL POC Glucose (mg/dL) 163 H 124 H (70-110) mg/dL 03/07/25 03/07/25 03/08/25 Range/Units 17:56 20:43 02:55 RBC 3.63 L (4.40-5.60) 10*6/uL Hgb 12.7 L (13.0-17.0) g/dL Hct 36.5 L (39.6-50.0) % MCV 100.6 H (80.0-97.0) fL MCH 35.0 H (27.0-32.0) pg Plt Count 107 L (140-440) 10*3/uL Neutrophils # (1.80-7.70) 10*3/uL Monocytes # 1.01 H (0.20-1.00) 10*3/uL Eosinophils # (0.04-0.35) 10*3/uL Glucose (74-99) mg/dL POC Glucose (mg/dL) 181 H 145 H (70-110) mg/dL 03/08/25 03/08/25 Range/Units 02:55 05:46 RBC (4.40-5.60) 10*6/uL Hgb (13.0-17.0) g/dL Hct (39.6-50.0) % MCV (80.0-97.0) fL MCH (27.0-32.0) pg Plt Count (140-440) 10*3/uL Neutrophils # (1.80-7.70) 10*3/uL Monocytes # (0.20-1.00) 10*3/uL Eosinophils # (0.04-0.35) 10*3/uL Glucose 132 H (74-99) mg/dL POC Glucose (mg/dL) 135 H (70-110) mg/dL Microbiology - Last 24 Hours (Table) 03/05/25 04:38 Gram Stain - Final Sputum Sputum Culture - Final Assessment and Plan Assessment: [id number], witnessed cardiac arrest, presenting rhythm was ventricular fibrillation with prolonged downtime estimated at 20 minutes per ER documentation. The patient was extubated on 03/06/2025 and the patient is currently awake and alert and communicating. Hemodynamically stable on no pressors. Cardiac catheterization was completed on 03/07/2025 and the patient was found to have nonocclusive disease. Coronary artery disease post acute NSTEMI. Cardiac catheterization was c ompleted and showed nonocclusive coronary artery disease. Currently on aspirin and metoprolol. Systolic heart failure with an ejection fraction of 35%. Valvular function could not be assessed on echocardiogram. Acute hypoxemic respiratory failure, secondary to cardiac arrest. Patient is extubated and the patient is currently on 2 L of oxygen by nasal cannula. Hypotension and shock, possibly cardiogenic, improved and the patient is currently off pressors, hemodynamically stable at this point Anion gap metabolic acidosis, recovered Acute kidney injury, cardiorenal, improved History of diabetes mellitus, with hyperglycemia, currently on Lantus insulin 10 units twice daily and sliding scale coverage. Acute leukocytosis, likely reactive, improved Hypokalemia, replaced GI bleed, with maroon gastric content in the NG tube. Currently extubated the patient has no NG tube in place and the patient is not showing any signs of upper and lower GI bleeding. History of open heart surgery, possibly a valve surgery. History of permanent pacemaker, currently ventricularly paced rhythm, the pacemaker generator battery is low and had to be replaced approximately 2 years ago. This has not been done. Currently patient is being VVI paced at a rate of 50. Plan: Titrate oxygen flow to maintain saturation above 90%, currently on 2 L Patient is currently off norepinephrine infusion. Amiodarone put 100 mg p.o. twice a day Chest CT angiogram did not show evidence of pulmonary embolism Cardiac catheterization nonocclusive disease Patient is being paced at a rate of 50, VVI mode and the pacemaker generator needs to be replaced at a later stage. Continue aspirin Continue metoprolol continue Cozaar Rhythm is paced with rate of 50 Continue Lipitor Continue Lantus insulin Adequate mental status Will coordinate care with cardiology. Time with Patient: Greater than 30
[2025-03-08] MEDS: SPIRONOLACTONE 25 MG TAB PO SCH (12:09)
[2025-03-08] MEDS: METOPROLOL TARTRATE 25 MG TAB PO SCH (12:09)
[2025-03-08] MEDS: SODIUM CHLORIDE 0.9% 1,000 ML IV SCH (12:09)
--- NOTE | 2025-03-08 12:21 | P.PN ---
Subjective Progress Note Date: 03/08/25 patient is a 69-year-old gentleman with past medical history significant for coronary artery disease who presented to the ER after having a witnessed cardiac arrest. History is limited and most of is obtained from the EMR. Apparently patient had called EMS for his brother who had fallen, when EMS came patient collapsed while helping his brother and EMS. EMS started working on the patient and found him to be in V-fib, CPR was initiated, patient was intubated and received 3 rounds of epi, patient also shocked 3 times. Patient was down for at least 20 minutes before the return of ROSC. En route to ER, patient self extubated but patient was later intubated again by ER physician EKG done in the ER showed heart rate of , no ST segment elevation or depression seen, no T-wave inversions seen. Chest x-ray done in the ER ET tube 5.3 cm above the karen, no acute pulmonary process CT head done showed no acute intracranial process CT cervical spine done showed no acute fracture CTA chest done showed no evidence of pneumonia, cholelithiasis seen. Patient admitted to ICU 03/05. Patient seen and examined. Patient currently on mechanical ventilation. Patient is currently on Levophed, amiodarone. Patient overnight had some maroon-colored oozing from his OG tube 03/06. Patient seen and examined. Patient continues to be on ventilation, currently having sedation holiday, patient was responsive according to nursing staff. Currently on amiodarone drip, patient has been weaned off the Levophed. 03/07. Patient seen and examined. Patient was extubated overnight. Currently patient is doing much better. Still complaining of throat pain because of intubation. Currently n.p.o. going for cardiac catheter 03/08. Patient seen and examined. Cardiac cath done on 03/07 showed Angiographically patent with mild coronary irregularities in LCx territory,Bioprosthetic aortic valve. Patient is sitting upright in the bed, no acute issue overnight REVIEW OF SYSTEMS: Denies any shortness of breath. Denies chest pain Denies any palpitation. Denies nausea or vomiting PHYSICAL EXAMINATION: GENERAL: The patient is alert HEENT: Pupils are round and equally reacting to light. EOMI. No scleral icterus. No conjunctival pallor. Normocephalic, atraumatic. No pharyngeal erythema. No thyromegaly. CARDIOVASCULAR: S1 and S2 present. No murmurs, rubs, or gallops. PULMONARY: Chest is clear to auscultation, no wheezing or crackles. ABDOMEN: Soft, nontender, nondistended, normoactive bowel sounds. No palpable organomegaly. MUSCULOSKELETAL: No joint swelling or deformity. EXTREMITIES: No cyanosis, clubbing, or pedal edema. NEUROLOGICAL: Moving all extremities SKIN: No rashes. Assessment and plan Cardiac arrest V-fib arrest Acute systolic CHF Cardiomyopathy Cardiogenic shock Acute hypoxic respiratory failure NSTEMI Acute kidney injury, cardiorenal Acute leukocytosis, likely reactive Hypokalemia, replaced Hyperglycemia Acute transaminitis History of coronary artery disease History of diabetes mellitus Monitor vital signs Monitor CBC Monitor CMP Continue telemetry monitoring Continue oxygen supplementation Continue aspirin, Plavix, Lipitor Continue amiodarone drip Continue IV Protonix Cardiac cath done on 03/07 showed Angiographically patent with mild coronary Neumiller irregularities in LCx territory,Bioprosthetic aortic valve Cardiology planning AICD Critical care following Labs and medication were reviewed.. Continue same treatment. Continue with symptomatic treatment. Resume home medication. Monitor labs and vitals. DVT and GI prophylaxis. Further recommendations as per clinical course of the patient Dictation was produced using [employer] dictation software. please excuse any grammatical, word or spelling errors. Objective - Vital Signs Vital signs: Vital Signs Temp 99.2 F 03/08/25 08:00 Pulse 50 L 03/08/25 09:00 Resp 18 03/08/25 09:00 BP 151/70 03/08/25 09:00 Pulse Ox 96 03/08/25 09:00 FiO2 40 03/06/25 12:00 Intake & Output 03/07/25 03/08/25 03/08/25 18:59 06:59 18:59 Intake Total 1239.116 926 33 Output Total 490 570 165 Balance 749.116 356 -132 Weight 107.7 kg Intake: IV 893 676 33 0.9 NS KVO 660 640 30 Pressure Bag 33 36 3 Intake, IV Titration 346.116 250 Amount Amiodarone 450 mg In 246.116 250 Dextrose 5% in Water 250 ml @ 0.5 MG/MIN 16.667 mls/hr IV .Q15H [facility] Rx#: [id number] Potassium Chloride 10 meq 100 In Water For Injection 1 100ml.bag @ 100 mls/hr IVPB Q1H [facility] Rx#: [id number] Output: Urine 490 570 165 Other: Voiding Method Indwelling Catheter Indwelling Catheter Indwelling Catheter ABP, PAP, CO, CI - Last Documented Arterial Blood Pressure 115/60 - Labs CBC & Chem 7: 03/08/25 02:55 03/08/25 02:55 Labs: Abnormal Lab Results - Last 24 Hours (Table) 03/07/25 03/07/25 03/07/25 Range/Units 11:18 13:53 17:56 RBC (4.40-5.60) 10*6/uL Hgb (13.0-17.0) g/dL Hct (39.6-50.0) % MCV (80.0-97.0) fL MCH (27.0-32.0) pg Plt Count (140-440) 10*3/uL Monocytes # (0.20-1.00) 10*3/uL Glucose (74-99) mg/dL POC Glucose (mg/dL) 163 H 124 H 181 H (70-110) mg/dL 03/07/25 03/08/25 03/08/25 Range/Units 20:43 02:55 02:55 RBC 3.63 L (4.40-5.60) 10*6/uL Hgb 12.7 L (13.0-17.0) g/dL Hct 36.5 L (39.6-50.0) % MCV 100.6 H (80.0-97.0) fL MCH 35.0 H (27.0-32.0) pg Plt Count 107 L (140-440) 10*3/uL Monocytes # 1.01 H (0.20-1.00) 10*3/uL Glucose 132 H (74-99) mg/dL POC Glucose (mg/dL) 145 H (70-110) mg/dL 03/08/25 Range/Units 05:46 RBC (4.40-5.60) 10*6/uL Hgb (13.0-17.0) g/dL Hct (39.6-50.0) % MCV (80.0-97.0) fL MCH (27.0-32.0) pg Plt Count (140-440) 10*3/uL Monocytes # (0.20-1.00) 10*3/uL Glucose (74-99) mg/dL POC Glucose (mg/dL) 135 H (70-110) mg/dL Microbiology - Last 24 Hours (Table) 03/05/25 04:38 Gram Stain - Final Sputum Sputum Culture - Final
[2025-03-08 13:04] LABS: African American GFR (CKD) >90 (>60 ml/min/1.73 sqM); Anion Gap 13 mmol/L; Blood Urea Nitrogen 18 mg/dL (9-20); Calcium 8.8 mg/dL (8.4-10.2); Carbon Dioxide 20 mmol/L (22-30); Chloride 105 mmol/L (98-107); Glucose 137 mg/dL (74-99); Non-African American GFR(CKD) 88 (>60 ml/min/1.73 sqM); Potassium 3.7 mmol/L (3.5-5.1); Sodium 138 mmol/L (137-145)
[2025-03-08 13:33] VITALS: BMI 32.2
[2025-03-08 16:09] LABS: Glucose,Whole Blood 180 mg/dL (70-110)
[2025-03-08] MEDS: POTASSIUM CHLORIDE ER 20 MEQ TAB.ER PO SCH (18:52)
[2025-03-08 20:09] LABS: Glucose,Whole Blood 191 mg/dL (70-110)
[2025-03-09 04:40] LABS: African American GFR (CKD) >90 (>60 ml/min/1.73 sqM); Anion Gap 8 mmol/L; Blood Urea Nitrogen 18 mg/dL (9-20); Calcium 9.0 mg/dL (8.4-10.2); Carbon Dioxide 28 mmol/L (22-30); Chloride 102 mmol/L (98-107); Glucose 137 mg/dL (74-99); Non-African American GFR(CKD) 89 (>60 ml/min/1.73 sqM); Potassium 4.2 mmol/L (3.5-5.1); Sodium 138 mmol/L (137-145)
[2025-03-09 06:45] LABS: Glucose,Whole Blood 142 mg/dL (70-110)
--- NOTE | 2025-03-09 07:21 | P.PN ---
Subjective Progress Note Date: 03/09/25 PROGRESS NOTE The patient is a 69-year-old male with a history of CAD, status post AVR, status post permanent pacemaker implantation who presented with cardiac arrest and prolonged CPR. His EKG revealed paced rhythm with underlying sinus mechanism and paced at VVI. Apparently had a V-fib arrest. The patient is not anticoagulated because of evidence of GI bleeding. Full details of prior history is unclear. He remains intubated and sedated. Underlying sinus mechanism. His troponin is elevated at 52. March 06: The patient remains intubated and sedated. In sinus mechanism with 100% ventricular pacing with complete heart block. He is off vasopressors. His urinary output has been good. His neurological status is unclear. He underwent an echocardiogram that showed an ejection fraction of 35 to 40% but it was of difficult quality and no clear segmental wall motion abnormality could be seen. He had no further episodes of ventricular tachycardia. March 07: The patient is awake and alert, extubated. He feels well, denying any dyspnea or chest discomfort. He has no dizziness or palpitations. He continues to be in sinus mechanism. Hemodynamically he is stable on no vasopressors. Reviewing his records the patient had an aortic valve replacement for bicuspid aortic valve and severe aortic regurgitation with no evidence of obstructive CAD. He has not been followed in the office for over 3 years. March 08: The patient underwent coronary angiography yesterday and had no evidence of o bstructive CAD. He continues to be in sinus mechanism with 100% VVI pacing. He has soreness in the left side of the chest related to his CPR. His echocardiogram showed evidence of cardiomyopathy. He has no further episodes of ventricular tachycardia. He is scheduled to undergo ICD implantation by Dr. Garg. March 09: The patient feels well this morning, he continues to have soreness in the chest related to his CPR. He continues to be in sinus mechanism with VVI pacing. He has no dizziness or palpitations. There is no evidence of ventricular tachyarrhythmia. His urinary output is stable. He was evaluated with Dr. Garg yesterday after the venogram and the plan is to proceed with generator change at this point and later on bring him back to upgrade the device to a BiV ICD. 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 In the meantime he will be given a LifeVest. Medications: Amiodarone 400 mg twice a day, aspirin, insulin, Lipitor 40 mg daily, losartan 12.5 mg daily, spironolactone 25 mg daily PHYSICAL EXAMINATION: Blood pressure 140/90 heart rate 50, LUNGS: Clear to auscultation HEART: Regular rate and rhythm, S1, S2. No S3. Systolic ejection murmur, / ABDOMEN: Soft, no organomegaly, nontender EXTREMETIES: No edema LAB: Potassium 4.2, BUN 18, creatinine 0.89. IMPRESSION: 1. Cardiac arrest, nonischemic with cardiomyopathy 2. Status post permanent pacemaker implantation with evidence consistent with generator depletion 3. History of hypertension 4. Status post aortic valve replacement 5. Cardiomyopathy could be secondary to ventricular pacing PLAN: 1. Increase losartan 2. Proceed with generator change today 3. Increase physical activity 4. LifeVest 5. Plan to upgrade the device to BiV ICD down the road when specialized wire is available Objective - Vital Signs Vital signs: Vital Signs Temp 98.8 F 03/09/25 04:00 Pulse 50 L 03/09/25 04:00 Resp 14 03/09/25 04:00 BP 141/92 03/09/25 04:00 Pulse Ox 98 03/09/25 04:00 FiO2 40 03/06/25 12:00 Intake & Output 03/08/25 03/09/25 03/09/25 18:59 06:59 18:59 Intake Total 133 630 Output Total 665 700 Balance -532 -70 Weight 107.7 kg 104.2 kg Intake: IV 133 30 0.9 NS KVO 130 30 Pressure Bag 3 Intake, IV Titration 600 Amount Sodium Chloride 0.9% 1, 600 000 ml @ 50 mls/hr IV . Q20H [facility] Rx#:[id number] Output: Urine 665 700 Other: Voiding Method Urinal Urinal ABP, PAP, CO, CI - Last Documented Arterial Blood Pressure 115/60 - Labs CBC & Chem 7: 03/08/25 02:55 03/09/25 03:06 Labs: Abnormal Lab Results - Last 24 Hours (Table) 03/08/25 03/08/25 03/08/25 Range/Units 11:43 11:52 16:08 Carbon Dioxide 20 L (22-30) mmol/L Glucose 137 H (74-99) mg/dL POC Glucose (mg/dL) 133 H 180 H (70-110) mg/dL 03/08/25 03/09/25 03/09/25 Range/Units 20:08 03:06 06:43 Carbon Dioxide (22-30) mmol/L Glucose 137 H (74-99) mg/dL POC Glucose (mg/dL) 191 H 142 H (70-110) mg/dL
[2025-03-09] MEDS: METOPROLOL SUCCINATE (ER) 25 MG TAB.ER.24H PO SCH (08:37)
[2025-03-09 08:39] LABS: Glucose,Whole Blood 208 mg/dL (70-110)
[2025-03-09 11:54] LABS: Glucose,Whole Blood 198 mg/dL (70-110)
[2025-03-09] MEDS ORDERED: LOSARTAN 25 MG TAB PO SCH (12:00)
--- NOTE | 2025-03-09 13:54 | P.PN ---
Subjective Progress Note Date: 03/09/25 Patient is a 69-year-old male with little known past medical history. No prior records available for review. Apparently, patient had called EMS for his brother last night, when they arrived, he collapsed. Found to be in V-fib cardiac arrest. He was defibrillated 3 times, a total of 3 rounds of epinep hrine were given, loaded with amiodarone, and intubated in the field. ROSC was achieved, with an estimated 20-minute downtime. At some point, patient self extubated and was reintubated in the emergency department. Chest CT angiogram done in the emergency department did not show any evidence of pulmonary emboli. Findings concerning for CHF. A bedside echo was reportedly done by Cardiology in the emergency department and unofficial reports found to have a severely low ejection fraction, around 10 to 15%. Serial troponins elevated at 1.25 and subsequently 52.1. EKG: Ventricular paced rhythm at 50 bpm. Remaining lab work including a CBC with a WBC count of 21.2, hemoglobin 15.3, platelets 161. CMP: Sodium 142, potassium 3.4, chloride 105, serum bicarb 8, BUN 11, creatinine 0.93, glucose 403. Lactic 2.7. AST 178, ALT 73, ALP 125. Abdominal ultrasound showing cholelithiasis without cholecystitis and hepatic steatosis with hepatomegaly. Repeat labs showing improvement in patient's metabolic acidosis and serum bicarb of 16. Patient has developed acute kidney injury, likely cardi orenal. Patient also noted to have maroon gastric content from his OG tube. Gastroccult was positive. Patient currently being evaluated in the intensive care unit. He remains intubated to mechanical ventilator. Most recent available chest x-ray showing the endotracheal tube above the karen, orogastric tube which should be advanced for 5 cm, patchy appearing pulmonary edema, old sternotomy wires and pacemaker generator in the left chest. Previous ABGs showing a PaO2 of 231, pCO2 of 38, pH of 7.14. Previous ventilator changes made by Dr. Mays. Repeat gases, showing improvement in patient's acid-base balance with a PaO2 of 52, pCO2 of 37, pH of 7.34. Current ventilator settings assist-c ontrol, respiratory rate 24, tidal line 450, FiO2 50%, PEEP of 10. SpO2 reading 100% on bedside monitor. He is sedated on propofol at 45 mcg/kg/min. Synchronous with current settings. Difficult to assess neurostatus due to level of sedation. Norepinephrine infusing at 0.03 mcg/kg/min. Also, amiodarone infusing at 0.5 mg/min. Patient's rhythm on bedside monitor is V-paced at 50 bpm. Previously, patient was fluid resuscitated with a total of 2.5 L of crystalloid bolus. Urine output is low less than 30 cc/h On 03/06/2025, the patient is being seen for a follow-up. This patient is postc ardiac arrest. On today's evaluation, he is on propofol running at 45 mcg/kg/min., Comfortable. Grimaces to painful stimulation. Is on assist- control mode at rate of 24, tidal volume of 450, FiO2 40% with a PEEP of 8. Blood gas showed pH of 7.47 with a [id number] and PO218. chest x-ray remains clear. Orotracheal tube is in good location. Cardiac rhythm is paced, VVI going to the patient's pacemaker generator has run out of battery and he is on a backup VVI at rate of 50. He remains on amiodarone drip at 0.5 mg/min. He is off norepinephrine as of 9:00 yesterday. He is on normal saline at KVO. He remains on aspirin and Plavix. He remains on insulin in the form of Lantus 10 units twice daily. Afebrile. Normotensive. The WBC count is 11.9, hemoglobin 14 and platelet count of 102. Sodium is 135, potassium is 3.5, he is 20 mL creatinine of 1.2. LFTs are mildly elevated with an AST of 104 and ALT of 55. The echocardiogram was completed and the patient was found to have systolic heart failure with an ejection fraction of 35 to 40%. Valves were not adequately visualized. He remains n.p.o. for now. Cardiology is on the case. The patient will receive a sedation holiday. Will be making further planning regarding the need for cardiac catheterization within the next 24 hours. He is on Lipitor 40 mg p.o. daily. On 03/07/2025, the patient is awake and alert. The patient was extubated on 03/06/2025 and the patient is currently on oxygen at 3 L/min nasal cannula. The patient is currently off pressors. Amiodarone still running at 0.5 mg/min. He is VVI paced at the rate of 50. Awake and alert and communicating. Denies having any significant respiratory distress. Denies having any chest pain. Adequate urine output. The white second 11.1 with a heme of 4.8 and a platelet count of 98. BUN is 19 with a creatinine of 1.09 and sodium levels at 135. The patient is awaiting a cardiac catheterization. Remains on aspirin and Plavix. Remains on Lantus insulin 10 units twice daily and NovoLog sliding scale coverage. Remains on IV amiodarone. On 03/08/25, the patient is awake and alert and denies having any specific complaints. Currently on 2 L of O2 by nasal cannula. He underwent a cardiac catheterization yesterday and the patient was found to have nonocclusive disease and no intervention has been done. Plavix has been discontinued and the patient is currently on aspirin. IV amiodarone has been discontinued and the patient is currently on oral amiodarone, 400 mg p.o. twice a day. The patient is also started on metoprolol 25 mg p.o. twice daily. Noted the patient is in a paced rhythm, VVI mode at rate of 50. No other new complaints otherwise for now. No chest pain. No shortness of breath. The white cell count is 9.6 with a hemoglobin 12.7 and a platelet count of 107. BUN is 18 with a creatinine of 0.8 and a sodium level is 137. Adequate urine output. There will patient is being followed up by cardiology. The plan is to insert a new pacemaker generator is the current generator is running of a very low battery. Remains on normal sa line at rate of 50 cc an hour. On 03/09/2025, the patient is being seen in the intensive care unit. He is calm and comfortable and he denies having any significant respiratory distress. The plan is to replace the pacemaker generator today and the wires will be replaced at a later stage. Based on that, the patient will be taken to the [facility] for this procedure. Otherwise, he is doing well. Is on 3 L of oxygen by nasal cannula. IV fluids are currently at 50 cc an hour normal saline. Remains on Toprol-XL 25 mg p.o. daily and Cozaar 25 mg p.o. daily and the patient is also on amiodarone 4 mg p.o. twice a day. No fever. No chills. Given empiric antibiotic coverage and in preparation for pacemaker generator replacement. BUN is 18 with a creatinine 0.8. Sodium level is 138. No focal neurological deficits. Moving all 4 extremities without any limitation. Objective - Vital Signs Vital signs: Vital Signs Temp 99.1 F 03/09/25 08:00 Pulse 53 L 03/09/25 08:00 Resp 14 03/09/25 08:00 BP 142/89 03/09/25 08:00 Pulse Ox 98 03/09/25 08:00 FiO2 40 03/06/25 12:00 Intake & Output 03/08/25 03/09/25 03/09/25 18:59 06:59 18:59 Intake Total 133 630 Output Total 665 700 Balance -532 -70 Weight 107.7 kg 104.2 kg Intake: IV 133 30 0.9 NS KVO 130 30 Pressure Bag 3 Intake, IV Titration 600 Amount Sodium Chloride 0.9% 1, 600 000 ml @ 50 mls/hr IV . Q20H [facility] Rx#:[id number] Output: Urine 665 700 Other: Voiding Method Urinal Urinal ABP, PAP, CO, CI - Last Documented Arterial Blood Pressure 115/60 - Exam GENERAL EXAM: Sedated, 69-year-old male, awake and alert and currently on 2L of oxygen by nasal cannula. HEAD: Normocephalic and atraumatic EYES: Normal reaction of pupils, equal size. Anicteric. No nystagmus. NOSE: Clear with pink turbinates. THROAT: No erythema or exudates. NECK: No masses, no JVD. CHEST: Left chest pacemaker generator. Remote appearing sternotomy incision. LUNGS: Equal air entry with no crackles, wheeze, rhonchi or dullness. CVS: S1 and S2 normal with no audible murmur, regular rhythm. No extra heart sounds, the patient is V paced with a rate of 50. ABDOMEN: No hepatosplenomegaly, active bowel sounds, no guarding or rigidity. SPINE: No scoliosis or deformity SKIN: No rashes CENTRAL NERVOUS SYSTEM: Neurologically, the patient is awake and alert and the patient does not have any focal neurological deficit. Cranial nerves are essentially intact. EXTREMITIES: There is no peripheral edema, clubbing, or cyanosis. Peripheral pulses are weak and thready. Extremities warm. - Labs CBC & Chem 7: 03/08/25 02:55 03/09/25 03:06 Labs: Abnormal Lab Results - Last 24 Hours (Table) 03/08/25 03/08/25 03/08/25 Range/Units 11:43 11:52 16:08 Carbon Dioxide 20 L (22-30) mmol/L Glucose 137 H (74-99) mg/dL POC Glucose (mg/dL) 133 H 180 H (70-110) mg/dL 03/08/25 03/09/25 03/09/25 Range/Units 20:08 03:06 06:43 Carbon Dioxide (22-30) mmol/L Glucose 137 H (74-99) mg/dL POC Glucose (mg/dL) 191 H 142 H (70-110) mg/dL 03/09/25 Range/Units 08:35 Carbon Dioxide (22-30) mmol/L Glucose (74-99) mg/dL POC Glucose (mg/dL) 208 H (70-110) mg/dL Assessment and Plan Assessment: [id number], witnessed cardiac arrest, presenting rhythm was ventricular fibrillation with prolonged downtime estimated at 20 minutes per ER documentation. The patient was extubated on 03/06/2025 and the patient is currently awake and alert and communicating. Hemodynamically stable on no pressors. Cardiac catheterization was completed on 03/07/2025 and the patient was found to have nonocclusive disease. Coronary artery disease post acute NSTEMI. Cardiac catheterization was completed and showed nonocclusive coronary artery disease. Currently on aspirin and metoprolol. Systolic heart failure with an ejection fraction of 35%. Valvular function could not be assessed on echocardiogram. Acute hypoxemic respiratory failure, secondary to cardiac arrest. Patient is extubated and the patient is currently on 2 L of oxygen by nasal cannula. Hypotension and shock, possibly cardiogenic, improved and the patient is currently off pressors, hemodynamically stable at this point Anion gap metabolic acidosis, recovered Acute kidney injury, cardiorenal, improved History of diabetes mellitus, with hyperglycemia, currently on Lantus insulin 10 units twice daily and sliding scale coverage. Acute leukocytosis, likely reactive, improved Hypokalemia, replaced GI bleed, with maroon gastric content in the NG tube. Currently extubated the patient has no NG tube in place and the patient is not showing any signs of upper and lower GI bleeding. History of open heart surgery, possibly a valve surgery. History of permanent pacemaker, currently ventricularly paced rhythm, the pacemaker generator battery is low and had to be replaced approximately 2 years ago. This has not been done. Currently patient is being VVI paced at a rate of 50. Plan: Titrate oxygen flow to maintain saturation above 90%, currently on 2 L Patient is hemodynamically stable Amiodarone 4 mg p.o. twice a day Chest CT angiogram did not show evidence of pulmonary embolism Cardiac catheterization nonocclusive disease Patient is being paced at a rate of 50, VVI mode and the pacemaker generator needs to be replaced today and the wires will be replaced at a later stage Continue aspirin Continue metoprolol continue Cozaar Rhythm is paced with rate of 50 Continue Lipitor Continue Lantus insulin Adequate mental status Empiric antibiotic coverage in preparation for pacemaker generator replacement Will coordinate care with cardiology. The patient will transfer to telemetry unit.
[2025-03-09] MEDS: VANCOMYCIN 1,250 MG in SODIUM CHLORIDE 0.9% 250 ML IVPB ONE (15:45)
[2025-03-09 16:36] LABS: Glucose,Whole Blood 145 mg/dL (70-110)
[2025-03-09] MEDS: IV FLUID CONTINUATION 500 ML IV ONE (17:15)
[2025-03-09] MEDS: ROPIVACAINE 5 MG/ML 30 ML VIAL MISCELLANE ONE (17:53)
[2025-03-09] MEDS: MIDAZOLAM 2 MG/2 ML VIAL IVP ONE (17:53)
[2025-03-09] MEDS: LIDOCAINE 2% (PF) 20 MG/ML 5 ML VIAL SQ ONE (17:53)
[2025-03-09] MEDS: VANCOMYCIN 1,000 MG VIAL IVPB ONE (18:17)
[2025-03-09] MEDS: ceFAZolin 2 GM in SODIUM CHLORIDE 0.9% 500 ML 500 ML IRRIGATION ONE (18:17)
[2025-03-09] MEDS: HEPARIN SODIUM,PORCINE (1 ML) 2,500 UNIT in SODIUM CHLORIDE 0.9% 250 ML IRRIGATION ONE (18:17)
[2025-03-09] MEDS: ceFAZolin 1,000 MG VIAL IVPB ONE (18:18)
[2025-03-09] MEDS: fentaNYL (PF) 50 MCG/1 ML VIAL IVP ONE (18:30)
--- NOTE | 2025-03-09 19:11 | P.EPCON ---
Electrophysiology Consult - EP Consult Electrophysiology Consult: Patient history of severe cardiomyopathy on account of RV pacing. Coronary angiography revealed normal coronary arteries. His device is at EOL and he presented with syncope with VF arrest. This may also have been related to intermittent loss of capture and bradycardia/AV block related degeneration to VF. Patient has been noncompliant with follow-up at [facility] including the pacemaker clinic. He is not on any cardiomyopathy medications Review of his previous echo at [facility] when he was last seen revealed mild LV dysfunction and he had had RV pacing and a pacemaker dependency state for many years History of hypertension, no diabetes Obesity Complete heart block status post dual-chamber pacemaker in 2011 Follow-up 2D echo and Doppler study in our office a few years later showed development of mild cardiomyopathy Noncompliant with follow-up and has not been seen in our office for many years now. 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 40 mg p.o. daily for 1 month then 200 mg p.o. 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 Not recommended Implantation of a left bundle pacing lead at this time we will not permit ICD therapy This vein does not have room to accommodate 2 separate leads at this time since the stenosis is fairly tight and can barely accommodate ONE lead Continue medical treatment and AV sequential dual-chamber pacing Follow-up 2D echo and Doppler study in 2 to 3 months Biventricular ICD if there is no improvement on medical treatment
--- NOTE | 2025-03-09 19:14 | P.EPPROC ---
- EP Procedure Note Electrophysiology Procedure Note: Transvenous temporary pacing procedure Indication for the procedure: Severe underlying bradycardia Patient was brought to the EP lab in a fasting state. Written informed consent was obtained prior to the procedure. The right groin was prepped and draped as a protocol. A 6-Occitan sheath was placed in the right femoral vein. Via this, a temporary pacing catheter was placed in the right ventricle. Thresholds were interrogated. Temporary pacing was performed through the rest of the procedure. At the end of the entire procedure, the TVP was removed. The sheath was removed and hemostasis was assured. Patient tolerated the procedure well without any acute complications. Procedure performed Transvenous temporary pacing Diagnosis Symptomatic bradycardia/complete heart block, pacemaker dependency state Dual-chamber pacemaker implanted in 2011 Device at end of life Procedure Dual-chamber pacemaker generator change Details Patient was brought to the EP lab in a fasting state. Written informed consent was obtained prior to the procedure. Conscious sedation provided. IV antibiotics administered. Local anesthesia administered. A 4 cm incision made in the pectoral area. Subfascial pocket made. Venous accesses obtained Venous sheaths placed. Leads placed in the right heart Cinefluoroscopy of atrial lead: Stable position the right atrial appendage. P waves 3.8 mV, pacing impedance 418 ohms, pacing threshold 1.25 V at 0.4 ms Chronic RV lead position in the RV apex. No fractures or breaks noted. 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 [employer] dual-chamber pacemaker explanted. [employer] dual-chamber pacemaker implanted, is over XT DR MRI Dual-chamber pacemaker device connected to the leads and placed in the subfascial pocket Patient tolerated the procedure well without acute complications Pacemaker programming DDDR 60-130, paced AV delay of 180 ms Patient underwent EP procedure under conscious sedation/moderate sedation, monitoring of the level of consciousness and physiologic parameters including but not limited to vital signs and oxygenation. Patient tolerated the procedure well without any acute complications. Start time: 1747 Stop time: 1848
--- NOTE | 2025-03-09 19:16 | P.EPPROC ---
- EP Procedure Note Electrophysiology Procedure Note: Left upper extremity venogram Left upper extremity venogram performed for possible upgrade in the future 15 cc IV dye injected Occlusion at the axillary subclavian junction of a moderate degree The venous stenosis most likely will allow passage of one-lead Cinefluoroscopy the leads Atrial and ventricular leads, pacing leads in the right atrial appendage and RV apex without any fractures or breaks
[2025-03-09] MEDS: ceFAZolin 1,000 MG in SODIUM CHLORIDE 0.9% IRRIG BTL 250 ML IRRIGATION ONE (20:15)
[2025-03-09 20:20] LABS: Glucose,Whole Blood 165 mg/dL (70-110)
[2025-03-09] MEDS: SACUBITRIL/VALSARTAN 24 MG-26 MG TABLET PO SCH (21:08)
[2025-03-10] MEDS: ACETAMINOPHEN IV (For NPO) 1,000 MG in EMPTY BAG 1 BAG IVPB ONE (00:56)
[2025-03-10 06:08] LABS: Glucose,Whole Blood 160 mg/dL (70-110)
[2025-03-10 08:05] LABS: African American GFR (CKD) >90 (>60 ml/min/1.73 sqM); Anion Gap 9 mmol/L; Blood Urea Nitrogen 13 mg/dL (9-20); Calcium 8.7 mg/dL (8.4-10.2); Carbon Dioxide 28 mmol/L (22-30); Chloride 102 mmol/L (98-107); Glucose 146 mg/dL (74-99); Non-African American GFR(CKD) >90 (>60 ml/min/1.73 sqM); Potassium 3.3 mmol/L (3.5-5.1); Sodium 139 mmol/L (137-145)
--- NOTE | 2025-03-10 08:37 | P.PN ---
Subjective Progress Note Date: 03/10/25 PROGRESS NOTE The patient is a 69-year-old male with a history of CAD, status post AVR, status post permanent pacemaker implantation who presented with cardiac arrest and prolonged CPR. His EKG revealed paced rhythm with underlying sinus mechanism and paced at VVI. Apparently had a V-fib arrest. The patient is not anticoagulated because of evidence of GI bleeding. Full details of prior history is unclear. He remains intubated and sedated. Underlying sinus mechanism. His troponin is elevated at 52. March 06: The patient remains intubated and sedated. In sinus mechanism with 100% ventricular pacing with complete heart block. He is off vasopressors. His urinary output has been good. His neurological status is unclear. He underwent an echocardiogram that showed an ejection fraction of 35 to 40% but it was of difficult quality and no clear segmental wall motion abnormality could be seen. He had no further episodes of ventricular tachycardia. March 07: The patient is awake and alert, extubated. He feels well, denying any dyspnea or chest discomfort. He has no dizziness or palpitations. He continues to be in sinus mechanism. Hemodynamically he is stable on no vasopressors. Reviewing his records the patient had an aortic valve replacement for bicuspid aortic valve and severe aortic regurgitation with no evidence of obstructive CAD. He has not been followed in the office for over 3 years. March 08: The patient underwent coronary angiography yesterday and had no evidence of o bstructive CAD. He continues to be in sinus mechanism with 100% VVI pacing. He has soreness in the left side of the chest related to his CPR. His echocardiogram showed evidence of cardiomyopathy. He has no further episodes of ventricular tachycardia. He is scheduled to undergo ICD implantation by Dr. Garg. March 09: The patient feels well this morning, he continues to have soreness in the chest related to his CPR. He continues to be in sinus mechanism with VVI pacing. He has no dizziness or palpitations. There is no evidence of ventricular tachyarrhythmia. His urinary output is stable. He was evaluated with Dr. Garg yesterday after the venogram and the plan is to proceed with generator change at this point and later on bring him back to upgrade the device to a BiV ICD. 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 In the meantime he will be given a LifeVest. March 10: The patient had the generator change yesterday, he is DDD pacing today. He denies any chest discomfort except for the rib injury. He has no dizziness or palpitations. He is ambulating in the room without difficulties. He continues to be in sinus mechanism. There is no evidence of ventricular tachycardia. He is scheduled to receive a LifeVest. He will be readmitted in April or May to undergo placement of his upgraded wire. Medications: Amiodarone 400 mg twice a day, aspirin, insulin, Lipitor 40 mg daily, Entresto 2426 twice a day, spironolactone 25 mg daily, carvedilol 6.25 mg twice a day PHYSICAL EXAMINATION: Blood pressure 143/90 heart rate 80, LUNGS: Clear to auscultation HEART: Regular rate and rhythm, S1, S2. No S3. Systolic ejection murmur, / ABDOMEN: Soft, no organomegaly, nontender EXTREMETIES: No edema, pacemaker site clean LAB: Potassium 3.3, BUN 13 18, creatinine 0.79 IMPRESSION: 1. Cardiac arrest, nonischemic cardiomyopathy 2. Status post permanent pacemaker implantation with evidence consistent with generator depletion, status post generator change 3. History of hypertension 4. Status post aortic valve replacement 5. Cardiomyopathy could be secondary to ventricular pacing PLAN: 1. Increase carvedilol 2. Increase physical activity 3. LifeVest 4. Follow blood pressure 5. Probable discharge in the next 24 to 48 hours and follow-up as an outpatient Objective - Vital Signs Vital signs: Vital Signs Temp 98.5 F 03/10/25 08:26 Pulse 80 03/10/25 08:26 Resp 16 03/10/25 08:26 BP 143/86 03/10/25 08:26 Pulse Ox 92 L 03/10/25 08:26 FiO2 40 03/06/25 12:00 Intake & Output 03/09/25 03/10/25 03/10/25 18:59 06:59 18:59 Intake Total 0 Output Total 325 Balance 0 -325 Weight 102.9 kg Intake: Oral 0 Output: Urine 325 Other: Voiding Method Urinal Urinal # Voids 1 ABP, PAP, CO, CI - Last Documented Arterial Blood Pressure 115/60 - Labs CBC & Chem 7: 03/08/25 02:55 03/10/25 06:14 Labs: Abnormal Lab Results - Last 24 Hours (Table) 03/09/25 03/09/25 03/09/25 Range/Units 08:35 11:53 16:35 Potassium (3.5-5.1) mmol/L Glucose (74-99) mg/dL POC Glucose (mg/dL) 208 H 198 H 145 H (70-110) mg/dL 03/09/25 03/10/25 03/10/25 Range/Units 20:18 06:08 06:14 Potassium 3.3 L (3.5-5.1) mmol/L Glucose 146 H (74-99) mg/dL POC Glucose (mg/dL) 165 H 160 H (70-110) mg/dL
[2025-03-10] MEDS ORDERED: LOSARTAN 25 MG TAB PO SCH (09:00)
[2025-03-10 11:26] LABS: Glucose,Whole Blood 151 mg/dL (70-110)
[2025-03-10] MEDS ORDERED: Potassium Replacement Protocol 1 EACH MISC MISCELLANE PRN (11:36)
[2025-03-10] MEDS: POTASSIUM CHLORIDE ER 20 MEQ TAB.ER PO SCH (12:25)
[2025-03-10] MEDS: ACETAMINOPHEN TAB 325 MG TAB PO PRN (12:25)
[2025-03-10 16:26] LABS: Glucose,Whole Blood 135 mg/dL (70-110)
--- NOTE | 2025-03-10 17:30 | P.PN ---
Subjective Progress Note Date: 03/09/25 69-year-old gentleman with past medical history significant for coronary artery disease who presented to the ER after having a witnessed cardiac arrest. History is limited and most of is obtained from the EMR. Apparently patient had called EMS for his brother who had fallen, when EMS came patient collapsed while helping his brother and EMS. EMS started working on the patient and found him to be in V-fib, CPR was initiated, patient was intubated and received 3 rounds of epi, patient also shocked 3 times. Patient was down for at least 20 minutes before the return of ROSC. En route to ER, patient self extubated but patient was later intubated again by ER physician EKG done in the ER showed heart rate of , no ST segment elevation or depression seen, no T-wave inversions seen. Chest x-ray done in the ER ET tube 5.3 cm above the karen, no acute pulmonary process CT head done showed no acute intracranial process CT cervical spine done showed no acute fracture CTA chest done showed no evidence of pneumonia, cholelithiasis seen. Objective - Vital Signs Vital signs: Vital Signs Temp 99.1 F 03/09/25 08:00 Pulse 53 L 03/09/25 08:00 Resp 14 03/09/25 08:00 BP 142/89 03/09/25 08:00 Pulse Ox 98 03/09/25 08:00 FiO2 40 03/06/25 12:00 Intake & Output 03/08/25 03/09/25 03/09/25 18:59 06:59 18:59 Intake Total 133 630 Output Total 665 700 Balance -532 -70 Weight 107.7 kg 104.2 kg Intake: IV 133 30 0.9 NS KVO 130 30 Pressure Bag 3 Intake, IV Titration 600 Amount Sodium Chloride 0.9% 1, 600 000 ml @ 50 mls/hr IV . Q20H [facility] Rx#:[id number] Output: Urine 665 700 Other: Voiding Method Urinal Urinal Urinal ABP, PAP, CO, CI - Last Documented Arterial Blood Pressure 115/60 - Exam GENERAL: The patient is alert HEENT: Pupils are round and equally reacting to light. EOMI. No scleral icterus. No conjunctival pallor. Normocephalic, atraumatic. No pharyngeal erythema. No thyromegaly. CARDIOVASCULAR: S1 and S2 present. No murmurs, rubs, or gallops. PULMONARY: Chest is clear to auscultation, no wheezing or crackles. ABDOMEN: Soft, nontender, nondistended, normoactive bowel sounds. No palpable organomegaly. MUSCULOSKELETAL: No joint swelling or deformity. EXTREMITIES: No cyanosis, clubbing, or pedal edema. NEUROLOGICAL: Moving all extremities SKIN: No rashes - Labs CBC & Chem 7: 03/08/25 02:55 03/10/25 06:14 Labs: Abnormal Lab Results - Last 24 Hours (Table) 03/08/25 03/08/25 03/08/25 Range/Units 11:43 11:52 16:08 Carbon Dioxide 20 L (22-30) mmol/L Glucose 137 H (74-99) mg/dL POC Glucose (mg/dL) 133 H 180 H (70-110) mg/dL 03/08/25 03/09/25 03/09/25 Range/Units 20:08 03:06 06:43 Carbon Dioxide (22-30) mmol/L Glucose 137 H (74-99) mg/dL POC Glucose (mg/dL) 191 H 142 H (70-110) mg/dL 03/09/25 Range/Units 08:35 Carbon Dioxide (22-30) mmol/L Glucose (74-99) mg/dL POC Glucose (mg/dL) 208 H (70-110) mg/dL Assessment and Plan Assessment: Cardiac arrest V-fib arrest Acute systolic CHF Cardiomyopathy Cardiogenic shock Acute hypoxic respiratory failure NSTEMI Acute kidney injury, cardiorenal Acute leukocytosis, likely reactive Hypokalemia, replaced Hyperglycemia Acute transaminitis History of coronary artery disease History of diabetes mellitus Monitor vital signs Monitor CBC Monitor CMP Continue telemetry monitoring Continue oxygen supplementation Continue aspirin, Plavix, Lipitor Continue amiodarone drip Continue IV Protonix Cardiac cath done on 03/07 showed Angiographically patent with mild coronary Neumiller irregularities in LCx territory,Bioprosthetic aortic valve Cardiology planning AICD Critical care following Labs and medication were reviewed.. Continue same treatment. Continue with symptomatic treatment. Resume home medication. Monitor labs and vitals. DVT and GI prophylaxis. Further recommendations as per clinical course of the patient
--- NOTE | 2025-03-10 17:41 | P.PN ---
Subjective Progress Note Date: 03/10/25 69-year-old gentleman with past medical history significant for coronary artery disease who presented to the ER after having a witnessed cardiac arrest. History is limited and most of is obtained from the EMR. Apparently patient had called EMS for his brother who had fallen, when EMS came patient collapsed while helping his brother and EMS. EMS started working on the patient and found him to be in V-fib, CPR was initiated, patient was intubated and received 3 rounds of epi, patient also shocked 3 times. Patient was down for at least 20 minutes before the return of ROSC. En route to ER, patient self extubated but patient was later intubated again by ER physician EKG done in the ER showed heart rate of , no ST segment elevation or depression seen, no T-wave inversions seen. Chest x-ray done in the ER ET tube 5.3 cm above the karen, no acute pulmonary process CT head done showed no acute intracranial process CT cervical spine done showed no acute fracture CTA chest done showed no evidence of pneumonia, cholelithiasis seen. 03/10/2025 Patient is seen and evaluated resting comfortably in bed; denies any specific complaints -Patient underwent permanent pacemaker generator change Cardiology recommend to increase Coreg; increase physical activity -LifeVest Plan for possible discharge in next 24 hours Objective - Vital Signs Vital signs: Vital Signs Temp 98.5 F 03/10/25 08:26 Pulse 80 03/10/25 08:26 Resp 16 03/10/25 08:26 BP 143/86 03/10/25 08:26 Pulse Ox 92 L 03/10/25 08:26 FiO2 40 03/06/25 12:00 Intake & Output 03/09/25 03/10/25 03/10/25 18:59 06:59 18:59 Intake Total 0 128 Output Total 325 Balance 0 -325 128 Weight 102.9 kg Intake: IV 10 Invasive Line 8 10 Oral 0 118 Output: Urine 325 Other: Voiding Method Urinal Urinal Urinal # Voids 1 1 ABP, PAP, CO, CI - Last Documented Arterial Blood Pressure 115/60 - Exam GENERAL: The patient is alert HEENT: Pupils are round and equally reacting to light. EOMI. No scleral icterus. No conjunctival pallor. Normocephalic, atraumatic. No pharyngeal erythema. No thyromegaly. CARDIOVASCULAR: S1 and S2 present. No murmurs, rubs, or gallops. PULMONARY: Chest is clear to auscultation, no wheezing or crackles. ABDOMEN: Soft, nontender, nondistended, normoactive bowel sounds. No palpable organomegaly. MUSCULOSKELETAL: No joint swelling or deformity. EXTREMITIES: No cyanosis, clubbing, or pedal edema. NEUROLOGICAL: Moving all extremities SKIN: No rashes - Labs CBC & Chem 7: 03/08/25 02:55 03/10/25 06:14 Labs: Abnormal Lab Results - Last 24 Hours (Table) 03/09/25 03/09/25 03/09/25 Range/Units 11:53 16:35 20:18 Potassium (3.5-5.1) mmol/L Glucose (74-99) mg/dL POC Glucose (mg/dL) 198 H 145 H 165 H (70-110) mg/dL 03/10/25 03/10/25 Range/Units 06:08 06:14 Potassium 3.3 L (3.5-5.1) mmol/L Glucose 146 H (74-99) mg/dL POC Glucose (mg/dL) 160 H (70-110) mg/dL Assessment and Plan Assessment: Cardiac arrest V-fib arrest Acute systolic CHF Cardiomyopathy Cardiogenic shock Acute hypoxic respiratory failure NSTEMI Acute kidney injury, cardiorenal Acute leukocytosis, likely reactive Hypokalemia, replaced Hyperglycemia Acute transaminitis History of coronary artery disease History of diabetes mellitus Monitor vital signs Monitor CBC Monitor CMP Continue telemetry monitoring Continue oxygen supplementation Continue aspirin, Plavix, Lipitor Continue amiodarone drip Continue IV Protonix Cardiac cath done on 03/07 showed Angiographically patent with mild coronary Neumiller irregularities in LCx territory,Bioprosthetic aortic valve Cardiology planning AICD Critical care following Labs and medication were reviewed.. Continue same treatment. Continue with symptomatic treatment. Resume home medication. Monitor labs and vitals. DVT and GI prophylaxis. Further recommendations as per clinical course of the patient
--- NOTE | 2025-03-10 18:42 | P.PN ---
Subjective Progress Note Date: 03/10/25 Patient is a 69-year-old male with little known past medical history. No prior records available for review. Apparently, patient had called EMS for his brother last night, when they arrived, he collapsed. Found to be in V-fib cardiac arrest. He was defibrillated 3 times, a total of 3 rounds of epinep hrine were given, loaded with amiodarone, and intubated in the field. ROSC was achieved, with an estimated 20-minute downtime. At some point, patient self extubated and was reintubated in the emergency department. Chest CT angiogram done in the emergency department did not show any evidence of pulmonary emboli. Findings concerning for CHF. A bedside echo was reportedly done by Cardiology in the emergency department and unofficial reports found to have a severely low ejection fraction, around 10 to 15%. Serial troponins elevated at 1.25 and subsequently 52.1. EKG: Ventricular paced rhythm at 50 bpm. Remaining lab work including a CBC with a WBC count of 21.2, hemoglobin 15.3, platelets 161. CMP: Sodium 142, potassium 3.4, chloride 105, serum bicarb 8, BUN 11, creatinine 0.93, glucose 403. Lactic 2.7. AST 178, ALT 73, ALP 125. Abdominal ultrasound showing cholelithiasis without cholecystitis and hepatic steatosis with hepatomegaly. Repeat labs showing improvement in patient's metabolic acidosis and serum bicarb of 16. Patient has developed acute kidney injury, likely cardi orenal. Patient also noted to have maroon gastric content from his OG tube. Gastroccult was positive. Patient currently being evaluated in the intensive care unit. He remains intubated to mechanical ventilator. Most recent available chest x-ray showing the endotracheal tube above the karen, orogastric tube which should be advanced for 5 cm, patchy appearing pulmonary edema, old sternotomy wires and pacemaker generator in the left chest. Previous ABGs showing a PaO2 of 231, pCO2 of 38, pH of 7.14. Previous ventilator changes made by Dr. Mays. Repeat gases, showing improvement in patient's acid-base balance with a PaO2 of 52, pCO2 of 37, pH of 7.34. Current ventilator settings assist-c ontrol, respiratory rate 24, tidal line 450, FiO2 50%, PEEP of 10. SpO2 reading 100% on bedside monitor. He is sedated on propofol at 45 mcg/kg/min. Synchronous with current settings. Difficult to assess neurostatus due to level of sedation. Norepinephrine infusing at 0.03 mcg/kg/min. Also, amiodarone infusing at 0.5 mg/min. Patient's rhythm on bedside monitor is V-paced at 50 bpm. Previously, patient was fluid resuscitated with a total of 2.5 L of crystalloid bolus. Urine output is low less than 30 cc/h On 03/06/2025, the patient is being seen for a follow-up. This patient is postc ardiac arrest. On today's evaluation, he is on propofol running at 45 mcg/kg/min., Comfortable. Grimaces to painful stimulation. Is on assist- control mode at rate of 24, tidal volume of 450, FiO2 40% with a PEEP of 8. Blood gas showed pH of 7.47 with a HSI176 and PO218. chest x-ray remains clear. Orotracheal tube is in good location. Cardiac rhythm is paced, VVI going to the patient's pacemaker generator has run out of battery and he is on a backup VVI at rate of 50. He remains on amiodarone drip at 0.5 mg/min. He is off norepinephrine as of 9:00 yesterday. He is on normal saline at KVO. He remains on aspirin and Plavix. He remains on insulin in the form of Lantus 10 units twice daily. Afebrile. Normotensive. The WBC count is 11.9, hemoglobin 14 and platelet count of 102. Sodium is 135, potassium is 3.5, he is 20 mL creatinine of 1.2. LFTs are mildly elevated with an AST of 104 and ALT of 55. The echocardiogram was completed and the patient was found to have systolic heart failure with an ejection fraction of 35 to 40%. Valves were not adequately visualized. He remains n.p.o. for now. Cardiology is on the case. The patient will receive a sedation holiday. Will be making further planning regarding the need for cardiac catheterization within the next 24 hours. He is on Lipitor 40 mg p.o. daily. On 03/07/2025, the patient is awake and alert. The patient was extubated on 03/06/2025 and the patient is currently on oxygen at 3 L/min nasal cannula. The patient is currently off pressors. Amiodarone still running at 0.5 mg/min. He is VVI paced at the rate of 50. Awake and alert and communicating. Denies having any significant respiratory distress. Denies having any chest pain. Adequate urine output. The white second 11.1 with a heme of 4.8 and a platelet count of 98. BUN is 19 with a creatinine of 1.09 and sodium levels at 135. The patient is awaiting a cardiac catheterization. Remains on aspirin and Plavix. Remains on Lantus insulin 10 units twice daily and NovoLog sliding scale coverage. Remains on IV amiodarone. On 03/08/25, the patient is awake and alert and denies having any specific complaints. Currently on 2 L of O2 by nasal cannula. He underwent a cardiac catheterization yesterday and the patient was found to have nonocclusive disease and no intervention has been done. Plavix has been discontinued and the patient is currently on aspirin. IV amiodarone has been discontinued and the patient is currently on oral amiodarone, 400 mg p.o. twice a day. The patient is also started on metoprolol 25 mg p.o. twice daily. Noted the patient is in a paced rhythm, VVI mode at rate of 50. No other new complaints otherwise for now. No chest pain. No shortness of breath. The white cell count is 9.6 with a hemoglobin 12.7 and a platelet count of 107. BUN is 18 with a creatinine of 0.8 and a sodium level is 137. Adequate urine output. There will patient is being followed up by cardiology. The plan is to insert a new pacemaker generator is the current generator is running of a very low battery. Remains on normal sa line at rate of 50 cc an hour. On 03/09/2025, the patient is being seen in the intensive care unit. He is calm and comfortable and he denies having any significant respiratory distress. The plan is to replace the pacemaker generator today and the wires will be replaced at a later stage. Based on that, the patient will be taken to the [facility] for this procedure. Otherwise, he is doing well. Is on 3 L of oxygen by nasal cannula. IV fluids are currently at 50 cc an hour normal saline. Remains on Toprol-XL 25 mg p.o. daily and Cozaar 25 mg p.o. daily and the patient is also on amiodarone 4 mg p.o. twice a day. No fever. No chills. Given empiric antibiotic coverage and in preparation for pacemaker generator replacement. BUN is 18 with a creatinine 0.8. Sodium level is 138. No focal neurological deficits. Moving all 4 extremities without any limitation. On 03/10/2025, the patient is being seen for a follow-up. The patient had undergone a replacement of the pacemaker generator. The pacemaker wires will be replaced at a later stage. Doing well with no specific complaints. No complication post procedure. Oxygenation remained stable and the patient is currently on room air oxygen with a pulse ox of 92 to 93%. No significant cough or sputum production. No chest tightness or wheezing. Sodium is at 139, BUN 30 with a creatinine of 0.7. Remains on amiodarone 4 mg p.o. twice a day. Remains on Coreg 12.5 mg twice daily and Entresto 24/25 1 tab a day and Aldactone 25 mg p.o. daily. He is on Lantus insulin 10 units twice daily and a sliding scale insulin coverage. Remains on aspirin. No complaints otherwise for now. Objective - Vital Signs Vital signs: Vital Signs Temp 98.5 F 03/10/25 08:26 Pulse 80 03/10/25 08:26 Resp 16 03/10/25 08:26 BP 143/86 03/10/25 08:26 Pulse Ox 92 L 03/10/25 08:26 FiO2 40 03/06/25 12:00 Intake & Output 03/09/25 03/10/25 03/10/25 18:59 06:59 18:59 Intake Total 0 128 Output Total 325 Balance 0 -325 128 Weight 102.9 kg Intake: IV 10 Invasive Line 8 10 Oral 0 118 Output: Urine 325 Other: Voiding Method Urinal Urinal Urinal # Voids 1 1 ABP, PAP, CO, CI - Last Documented Arterial Blood Pressure 115/60 - Exam GENERAL EXAM: Sedated, 69-year-old male, awake and alert and currently on room air oxygen HEAD: Normocephalic and atraumatic EYES: Normal reaction of pupils, equal size. Anicteric. No nystagmus. NOSE: Clear with pink turbinates. THROAT: No erythema or exudates. NECK: No masses, no JVD. CHEST: Left chest pacemaker generator. Remote appearing sternotomy incision. LUNGS: Equal air entry with no crackles, wheeze, rhonchi or dullness. CVS: S1 and S2 normal with no audible murmur, regular rhythm. No extra heart sounds, the patient is V paced with a rate of 50. ABDOMEN: No hepatosplenomegaly, active bowel sounds, no guarding or rigidity. SPINE: No scoliosis or deformity SKIN: No rashes CENTRAL NERVOUS SYSTEM: Neurologically, the patient is awake and alert and the patient does not have any focal neurological deficit. Cranial nerves are essentially intact. EXTREMITIES: There is no peripheral edema, clubbing, or cyanosis. Peripheral pulses are weak and thready. Extremities warm. - Labs CBC & Chem 7: 03/08/25 02:55 03/10/25 06:14 Labs: Abnormal Lab Results - Last 24 Hours (Table) 03/09/25 03/09/25 03/09/25 Range/Units 11:53 16:35 20:18 Potassium (3.5-5.1) mmol/L Glucose (74-99) mg/dL POC Glucose (mg/dL) 198 H 145 H 165 H (70-110) mg/dL 03/10/25 03/10/25 Range/Units 06:08 06:14 Potassium 3.3 L (3.5-5.1) mmol/L Glucose 146 H (74-99) mg/dL POC Glucose (mg/dL) 160 H (70-110) mg/dL Assessment and Plan Assessment: [id number], witnessed cardiac arrest, presenting rhythm was ventricular fibrillation with prolonged downtime estimated at 20 minutes per ER documentation. The patient was extubated on 03/06/2025 and the patient is currently awake and alert and communicating. Hemodynamically stable on no pressors. Cardiac catheterization was completed on 03/07/2025 and the patient was found to have nonocclusive disease. Coronary artery disease post acute NSTEMI. Cardiac catheterization was completed and showed nonocclusive coronary artery disease. Currently on aspirin and metoprolol. Systolic heart failure with an ejection fraction of 35%. Valvular function could not be assessed on echocardiogram. Acute hypoxemic respiratory failure, secondary to cardiac arrest. Patient is extubated and the patient is currently on room air oxygen Hypotension and shock, possibly cardiogenic, improved and the patient is currently off pressors, hemodynamically stable at this point Anion gap metabolic acidosis, recovered Acute kidney injury, cardiorenal, improved History of diabetes mellitus, with hyperglycemia, currently on Lantus insulin 10 units twice daily and sliding scale coverage. Acute leukocytosis, likely reactive, improved Hypokalemia, replaced GI bleed, with maroon gastric content in the NG tube. Currently extubated the p atient has no NG tube in place and the patient is not showing any signs of upper and lower GI bleeding. History of open heart surgery, possibly a valve surgery. History of permanent pacemaker, currently ventricularly paced rhythm, the pacemaker generator battery is low and had to be replaced approximately 2 years ago. The pacemaker generator was replaced and a wire replacement will be done at a later stage Plan: Titrate oxygen flow to maintain saturation above 90%, currently on room air oxygen Patient is hemodynamically stable Amiodarone 400 mg p.o. twice a day Chest CT angiogram did not show evidence of pulmonary embolism Cardiac catheterization nonocclusive disease Pacemaker generator replaced e Continue aspirin Continue metoprolol continue Cozaar Continue Lipitor Continue Lantus insulin Adequate mental status Will coordinate care with cardiology. The patient be kept on telemetry and a LifeVest will be also provided to the patient at time of discharge Time with Patient: Greater than 30
[2025-03-10 20:07] LABS: Glucose,Whole Blood 189 mg/dL (70-110)
[2025-03-11 06:03] LABS: Glucose,Whole Blood 144 mg/dL (70-110)
[2025-03-11 07:52] LABS: African American GFR (CKD) >90 (>60 ml/min/1.73 sqM); Anion Gap 11 mmol/L; Blood Urea Nitrogen 14 mg/dL (9-20); Calcium 9.2 mg/dL (8.4-10.2); Carbon Dioxide 28 mmol/L (22-30); Chloride 101 mmol/L (98-107); Glucose 141 mg/dL (74-99); Non-African American GFR(CKD) >90 (>60 ml/min/1.73 sqM); Potassium 3.6 mmol/L (3.5-5.1); Sodium 140 mmol/L (137-145)
[2025-03-11] MEDS: POTASSIUM CHLORIDE ER 20 MEQ TAB.ER PO SCH (08:12)
[2025-03-11 11:37] LABS: Glucose,Whole Blood 150 mg/dL (70-110)
--- NOTE | 2025-03-11 11:51 | P.PN ---
Subjective HISTORY OF PRESENT ILLNESS: The patient is a 69-year-old male with a history of CAD, status post AVR, status post permanent pacemaker implantation who presented with cardiac arrest and prolonged CPR. His EKG revealed paced rhythm with underlying sinus mechanism and paced at VVI. Apparently had a V-fib arrest. The patient is not anticoagulated because of evidence of GI bleeding. Full details of prior history is unclear. He remains intubated and sedated. Underlying sinus mechanism. His troponin is elevated at 52. March 06: The patient remains intubated and sedated. In sinus mechanism with 100% ventricular pacing with complete heart block. He is off vasopressors. His urinary output has been good. His neurological status is unclear. He underwent an echocardiogram that showed an ejection fraction of 35 to 40% but it was of difficult quality and no clear segmental wall motion abnormality could be seen. He had no further episodes of ventricular tachycardia. March 07: The patient is awake and alert, extubated. He feels well, denying any dyspnea or chest discomfort. He has no dizziness or palpitations. He continues to be in sinus mechanism. Hemodynamically he is stable on no vasopressors. Reviewing his records the patient had an aortic valve replacement for bicuspid aortic valve and severe aortic regurgitation with no evidence of obstructive CAD. He has not been followed in the office for over 3 years. March 08: The patient underwent coronary angiography yesterday and had no evidence of obstructive CAD. He continues to be in sinus mechanism with 100% VVI pacing. He has soreness in the left side of the chest related to his CPR. His echocardiogram showed evidence of cardiomyopathy. He has no further episodes of ventricular tachycardia. He is scheduled to undergo ICD implantation by Dr. Garg. March 09: The patient feels well this morning, he continues to have soreness in the chest related to his CPR. He continues to be in sinus mechanism with VVI pacing. He has no dizziness or palpitations. There is no evidence of ventricular tachyarrhythmia. His urinary output is stable. He was evaluated with Dr. Garg yesterday after the venogram and the plan is to proceed with generator change at this point and later on bring him back to upgrade the device to a BiV ICD. 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 In the meantime he will be given a LifeVest. March 10: The patient had the generator change yesterday, he is DDD pacing today. He denies any chest discomfort except for the rib injury. He has no dizziness or palpitations. He is ambulating in the room without difficulties. He continues to be in sinus mechanism. There is no evidence of ventricular tachycardia. He is scheduled to receive a LifeVest. He will be readmitted in April or May to undergo placement of his upgraded wire. Medications: Amiodarone 400 mg twice a day, aspirin, insulin, Lipitor 40 mg daily, Entresto 2426 twice a day, spironolactone 25 mg daily, carvedilol 6.25 mg twice a day 03/11/2025 Patient examined this morning at the bedside. He is sitting up in the chair. Patient denies shortness of breath. He does report that his voice feels hoarse this morning. He reports some chest discomfort when he is coughing. He has been up ambulating. Patient did receive his LifeVest yesterday. PHYSICAL EXAM: VITAL SIGNS: Reviewed. GENERAL: Well-developed in no acute distress. NECK: Supple. No JVD or thyromegaly LUNGS: Respirations even and unlabored. Lungs essentially clear to auscultation bilaterally. HEART: Regular rate and rhythm. S1 and S2 heard. EXTREMITIES: Normal range of motion. No clubbing or cyanosis. Peripheral pulses intact. No lower extremity edema ASSESSMENT: 1. Cardiac arrest, nonischemic cardiomyopathy 2. Status post permanent pacemaker implantation with evidence consistent with generator depletion, status post generator change 3. History of hypertension 4. Status post aortic valve replacement 5. Cardiomyopathy could be secondary to ventricular pacing PLAN: Continue current cardiac medications including amiodarone, aspirin, Lipitor, carvedilol, Entresto, and Aldactone Add Farxiga Continue to monitor patient for additional 24 hours anticipate discharge home tomorrow. Nurse practitioner note has been reviewed by physician. Signing provider agrees with the documented findings, assessment, and plan of care documented by [employer] SUPERVISOR as a scribe. Objective - Vital Signs Vital signs: Vital Signs Temp 98.1 F 03/10/25 19:45 Pulse 81 03/11/25 08:11 Resp 16 03/11/25 08:11 BP 132/87 03/11/25 08:11 Pulse Ox 94 L 03/11/25 08:23 FiO2 40 03/06/25 12:00 Intake & Output 03/10/25 03/11/25 03/11/25 18:59 06:59 18:59 Intake Total 388 40 20 Balance 388 40 20 Weight 104.2 kg Intake: IV 30 40 20 Invasive Line 8 20 20 10 Invasive Line 9 10 20 10 Oral 358 Other: Voiding Method Urinal Urinal # Voids 1 ABP, PAP, CO, CI - Last Documented Arterial Blood Pressure 115/60 - Labs CBC & Chem 7: 03/08/25 02:55 03/11/25 07:18 Labs: Abnormal Lab Results - Last 24 Hours (Table) 03/10/25 03/10/25 03/11/25 Range/Units 16:25 20:06 06:02 Glucose (74-99) mg/dL POC Glucose (mg/dL) 135 H 189 H 144 H (70-110) mg/dL 03/11/25 03/11/25 Range/Units 07:18 11:36 Glucose 141 H (74-99) mg/dL POC Glucose (mg/dL) 150 H (70-110) mg/dL
[2025-03-11] MEDS: DAPAGLIFLOZIN PROPANEDIOL 10 MG TABLET PO SCH (12:08)
--- NOTE | 2025-03-11 12:26 | P.PN ---
Subjective Progress Note Date: 03/11/25 Patient is a 69-year-old male with little known past medical history. No prior records available for review. Apparently, patient had called EMS for his brother last night, when they arrived, he collapsed. Found to be in V-fib cardiac arrest. He was defibrillated 3 times, a total of 3 rounds of epinep hrine were given, loaded with amiodarone, and intubated in the field. ROSC was achieved, with an estimated 20-minute downtime. At some point, patient self extubated and was reintubated in the emergency department. Chest CT angiogram done in the emergency department did not show any evidence of pulmonary emboli. Findings concerning for CHF. A bedside echo was reportedly done by Cardiology in the emergency department and unofficial reports found to have a severely low ejection fraction, around 10 to 15%. Serial troponins elevated at 1.25 and subsequently 52.1. EKG: Ventricular paced rhythm at 50 bpm. Remaining lab work including a CBC with a WBC count of 21.2, hemoglobin 15.3, platelets 161. CMP: Sodium 142, potassium 3.4, chloride 105, serum bicarb 8, BUN 11, creatinine 0.93, glucose 403. Lactic 2.7. AST 178, ALT 73, ALP 125. Abdominal ultrasound showing cholelithiasis without cholecystitis and hepatic steatosis with hepatomegaly. Repeat labs showing improvement in patient's metabolic acidosis and serum bicarb of 16. Patient has developed acute kidney injury, likely cardi orenal. Patient also noted to have maroon gastric content from his OG tube. Gastroccult was positive. Patient currently being evaluated in the intensive care unit. He remains intubated to mechanical ventilator. Most recent available chest x-ray showing the endotracheal tube above the karen, orogastric tube which should be advanced for 5 cm, patchy appearing pulmonary edema, old sternotomy wires and pacemaker generator in the left chest. Previous ABGs showing a PaO2 of 231, pCO2 of 38, pH of 7.14. Previous ventilator changes made by Dr. Mays. Repeat gases, showing improvement in patient's acid-base balance with a PaO2 of 52, pCO2 of 37, pH of 7.34. Current ventilator settings assist-c ontrol, respiratory rate 24, tidal line 450, FiO2 50%, PEEP of 10. SpO2 reading 100% on bedside monitor. He is sedated on propofol at 45 mcg/kg/min. Synchronous with current settings. Difficult to assess neurostatus due to level of sedation. Norepinephrine infusing at 0.03 mcg/kg/min. Also, amiodarone infusing at 0.5 mg/min. Patient's rhythm on bedside monitor is V-paced at 50 bpm. Previously, patient was fluid resuscitated with a total of 2.5 L of crystalloid bolus. Urine output is low less than 30 cc/h On 03/06/2025, the patient is being seen for a follow-up. This patient is postc ardiac arrest. On today's evaluation, he is on propofol running at 45 mcg/kg/min., Comfortable. Grimaces to painful stimulation. Is on assist- control mode at rate of 24, tidal volume of 450, FiO2 40% with a PEEP of 8. Blood gas showed pH of 7.47 with a [id number] and [id number]. chest x-ray remains clear. Orotracheal tube is in good location. Cardiac rhythm is paced, VVI going to the patient's pacemaker generator has run out of battery and he is on a backup VVI at rate of 50. He remains on amiodarone drip at 0.5 mg/min. He is off norepinephrine as of 9:00 yesterday. He is on normal saline at KVO. He remains on aspirin and Plavix. He remains on insulin in the form of Lantus 10 units twice daily. Afebrile. Normotensive. The WBC count is 11.9, hemoglobin 14 and platelet count of 102. Sodium is 135, potassium is 3.5, he is 20 mL creatinine of 1.2. LFTs are mildly elevated with an AST of 104 and ALT of 55. The echocardiogram was completed and the patient was found to have systolic heart failure with an ejection fraction of 35 to 40%. Valves were not adequately visualized. He remains n.p.o. for now. Cardiology is on the case. The patient will receive a sedation holiday. Will be making further planning regarding the need for cardiac catheterization within the next 24 hours. He is on Lipitor 40 mg p.o. daily. On 03/07/2025, the patient is awake and alert. The patient was extubated on 03/06/2025 and the patient is currently on oxygen at 3 L/min nasal cannula. The patient is currently off pressors. Amiodarone still running at 0.5 mg/min. He is VVI paced at the rate of 50. Awake and alert and communicating. Denies having any significant respiratory distress. Denies having any chest pain. Adequate urine output. The white second 11.1 with a heme of 4.8 and a platelet count of 98. BUN is 19 with a creatinine of 1.09 and sodium levels at 135. The patient is awaiting a cardiac catheterization. Remains on aspirin and Plavix. Remains on Lantus insulin 10 units twice daily and NovoLog sliding scale coverage. Remains on IV amiodarone. On 03/08/25, the patient is awake and alert and denies having any specific complaints. Currently on 2 L of O2 by nasal cannula. He underwent a cardiac catheterization yesterday and the patient was found to have nonocclusive disease and no intervention has been done. Plavix has been discontinued and the patient is currently on aspirin. IV amiodarone has been discontinued and the patient is currently on oral amiodarone, 400 mg p.o. twice a day. The patient is also started on metoprolol 25 mg p.o. twice daily. Noted the patient is in a paced rhythm, VVI mode at rate of 50. No other new complaints otherwise for now. No chest pain. No shortness of breath. The white cell count is 9.6 with a hemoglobin 12.7 and a platelet count of 107. BUN is 18 with a creatinine of 0.8 and a sodium level is 137. Adequate urine output. There will patient is being followed up by cardiology. The plan is to insert a new pacemaker generator is the current generator is running of a very low battery. Remains on normal sa line at rate of 50 cc an hour. On 03/09/2025, the patient is being seen in the intensive care unit. He is calm and comfortable and he denies having any significant respiratory distress. The plan is to replace the pacemaker generator today and the wires will be replaced at a later stage. Based on that, the patient will be taken to the Plc Technician for this procedure. Otherwise, he is doing well. Is on 3 L of oxygen by nasal cannula. IV fluids are currently at 50 cc an hour normal saline. Remains on Toprol-XL 25 mg p.o. daily and Cozaar 25 mg p.o. daily and the patient is also on amiodarone 4 mg p.o. twice a day. No fever. No chills. Given empiric antibiotic coverage and in preparation for pacemaker generator replacement. BUN is 18 with a creatinine 0.8. Sodium level is 138. No focal neurological deficits. Moving all 4 extremities without any limitation. On 03/10/2025, the patient is being seen for a follow-up. The patient had undergone a replacement of the pacemaker generator. The pacemaker wires will be replaced at a later stage. Doing well with no specific complaints. No complication post procedure. Oxygenation remained stable and the patient is currently on room air oxygen with a pulse ox of 92 to 93%. No significant cough or sputum production. No chest tightness or wheezing. Sodium is at 139, BUN 30 with a creatinine of 0.7. Remains on amiodarone 4 mg p.o. twice a day. Remains on Coreg 12.5 mg twice daily and Entresto 24/25 1 tab a day and Aldactone 25 mg p.o. daily. He is on Lantus insulin 10 units twice daily and a sliding scale insulin coverage. Remains on aspirin. No complaints otherwise for now. On 03/11/2025, the patient is stable. The pacemaker battery has been replaced. The generator will be replaced at a later stage. Doing well. He is currently DDD paced and the patient has no significant bradycardia. No chest pain. No shortness of breath. Farxiga was added to his regimen and the patient remains on a combination of Coreg and Entresto. He is also on Aldactone. He is currently on room air oxygen. Electrolytes are all within normal limits. No cardiac arrhythmias have been noted. Objective - Vital Signs Vital signs: Vital Signs Temp 98.1 F 03/10/25 19:45 Pulse 81 03/11/25 08:11 Resp 16 03/11/25 08:11 BP 132/87 03/11/25 08:11 Pulse Ox 94 L 03/11/25 08:23 FiO2 40 03/06/25 12:00 Intake & Output 03/10/25 03/11/25 03/11/25 18:59 06:59 18:59 Intake Total 388 40 20 Balance 388 40 20 Weight 104.2 kg Intake: IV 30 40 20 Invasive Line 8 20 20 10 Invasive Line 9 10 20 10 Oral 358 Other: Voiding Method Urinal Urinal # Voids 1 ABP, PAP, CO, CI - Last Documented Arterial Blood Pressure 115/60 - Exam GENERAL EXAM: Sedated, 69-year-old male, awake and alert and currently on room air oxygen HEAD: Normocephalic and atraumatic EYES: Normal reaction of pupils, equal size. Anicteric. No nystagmus. NOSE: Clear with pink turbinates. THROAT: No erythema or exudates. NECK: No masses, no JVD. CHEST: Left chest pacemaker generator. Remote appearing sternotomy incision. LUNGS: Equal air entry with no crackles, wheeze, rhonchi or dullness. CVS: S1 and S2 normal with no audible murmur, regular rhythm. No extra heart sounds, the patient is V paced with a rate of 50. ABDOMEN: No hepatosplenomegaly, active bowel sounds, no guarding or rigidity. SPINE: No scoliosis or deformity SKIN: No rashes CENTRAL NERVOUS SYSTEM: Neurologically, the patient is awake and alert and the patient does not have any focal neurological deficit. Cranial nerves are essent ially intact. EXTREMITIES: There is no peripheral edema, clubbing, or cyanosis. Peripheral pulses are weak and thready. Extremities warm. - Labs CBC & Chem 7: 03/08/25 02:55 03/11/25 07:18 Labs: Abnormal Lab Results - Last 24 Hours (Table) 03/10/25 03/10/25 03/10/25 Range/Units 11:25 16:25 20:06 Glucose (74-99) mg/dL POC Glucose (mg/dL) 151 H 135 H 189 H (70-110) mg/dL 03/11/25 03/11/25 Range/Units 06:02 07:18 Glucose 141 H (74-99) mg/dL POC Glucose (mg/dL) 144 H (70-110) mg/dL Assessment and Plan Assessment: [id number], witnessed cardiac arrest, presenting rhythm was ventricular fibrillation with prolonged downtime estimated at 20 minutes per ER documentation. The patient was extubated on 03/06/2025 and the patient is curr ently awake and alert and communicating. Hemodynamically stable on no pressors. Cardiac catheterization was completed on 03/07/2025 and the patient was found to have nonocclusive disease. Coronary artery disease post acute NSTEMI. Cardiac catheterization was completed and showed nonocclusive coronary artery disease. Currently on aspirin and Coreg 12.5 mg p.o. twice a day. Systolic heart failure with an ejection fraction of 35%. Valvular function could not be assessed on echocardiogram. Acute hypoxemic respiratory failure, secondary to cardiac arrest. Patient is extubated and the patient is currently on room air oxygen Hypotension and shock, possibly cardiogenic, improved and the patient is currently off pressors, hemodynamically stable at this point Anion gap metabolic acidosis, recovered Acute kidney injury, cardiorenal, improved History of diabetes mellitus, with hyperglycemia, currently on Lantus insulin 10 units twice daily and sliding scale coverage. Acute leukocytosis, likely reactive, improved Hypokalemia, replaced GI bleed, with maroon gastric content in the NG tube. Currently extubated the patient has no NG tube in place and the patient is not showing any signs of upper and lower GI bleeding. History of open heart surgery, possibly a valve surgery. History of permanent pacemaker, currently ventricularly paced rhythm, the pacemaker generator battery is low and had to be replaced approximately 2 years ago. The pacemaker generator was replaced and a wire replacement will be done at a later stage Plan: Titrate oxygen flow to maintain saturation above 90%, currently on room air oxygen Patient is hemodynamically stable Amiodarone 400 mg p.o. twice a day Chest CT angiogram did not show evidence of pulmonary embolism Cardiac catheterization nonocclusive disease Pacemaker generator battery has been replaced. The patient will be upgraded at a later stage to an AICD. Meanwhile, he was provided a LifeVest Continue aspirin Continue Coreg 12.5 mg p.o. twice a day Farxiga 10 mg p.o. daily Aldactone 25 mg p.o. daily Entresto 1 tablet a day Continue Lipitor Continue Lantus insulin Adequate mental status Will coordinate care with cardiology. The patient be kept on telemetry and a LifeVest will be also provided to the patient at time of discharge Discharge home to be followed up by cardiology
--- NOTE | 2025-03-11 14:54 | P.PN ---
Subjective Progress Note Date: 03/11/25 69-year-old gentleman with past medical history significant for coronary artery disease who presented to the ER after having a witnessed cardiac arrest. History is limited and most of is obtained from the EMR. Apparently patient had called EMS for his brother who had fallen, when EMS came patient collapsed while helping his brother and EMS. EMS started working on the patient and found him to be in V-fib, CPR was initiated, patient was intubated and received 3 rounds of epi, patient also shocked 3 times. Patient was down for at least 20 minutes before the return of ROSC. En route to ER, patient self extubated but patient was later intubated again by ER physician EKG done in the ER showed heart rate of , no ST segment elevation or depression seen, no T-wave inversions seen. Chest x-ray done in the ER ET tube 5.3 cm above the karen, no acute pulmonary process CT head done showed no acute intracranial process CT cervical spine done showed no acute fracture CTA chest done showed no evidence of pneumonia, cholelithiasis seen. 03/10/2025 Patient is seen and evaluated resting comfortably in bed; denies any specific complaints -Patient underwent permanent pacemaker generator change Cardiology recommend to increase Coreg; increase physical activity -LifeVest Plan for possible discharge in next 24 hours 03/11/2025 Patient is seen and evaluated resting in bed; has been reevaluated by cardiology with possible plan for discharge possibly tomorrow Vital signs are reviewed and stable Patient remains on amiodarone, aspirin, Lipitor, Coreg, Entresto and Aldactone -Cardiology recommending to add Farxiga - Patient to be monitored on current medications for another 24 hours prior to discharge Objective - Vital Signs Vital signs: Vital Signs Temp 98.1 F 03/10/25 19:45 Pulse 81 03/11/25 08:11 Resp 16 03/11/25 08:11 BP 132/87 03/11/25 08:11 Pulse Ox 94 L 03/11/25 08:23 FiO2 40 03/06/25 12:00 Intake & Output 03/10/25 03/11/25 03/11/25 18:59 06:59 18:59 Intake Total 388 40 20 Balance 388 40 20 Weight 104.2 kg Intake: IV 30 40 20 Invasive Line 8 20 20 10 Invasive Line 9 10 20 10 Oral 358 Other: Voiding Method Urinal Urinal # Voids 1 ABP, PAP, CO, CI - Last Documented Arterial Blood Pressure 115/60 - Exam GENERAL: The patient is alert HEENT: Pupils are round and equally reacting to light. EOMI. No scleral icterus. No conjunctival pallor. Normocephalic, atraumatic. No pharyngeal erythema. No thyromegaly. CARDIOVASCULAR: S1 and S2 present. No murmurs, rubs, or gallops. PULMONARY: Chest is clear to auscultation, no wheezing or crackles. ABDOMEN: Soft, nontender, nondistended, normoactive bowel sounds. No palpable organomegaly. MUSCULOSKELETAL: No joint swelling or deformity. EXTREMITIES: No cyanosis, clubbing, or pedal edema. NEUROLOGICAL: Moving all extremities SKIN: No rashes - Labs CBC & Chem 7: 03/08/25 02:55 03/11/25 07:18 Labs: Abnormal Lab Results - Last 24 Hours (Table) 03/10/25 03/10/25 03/10/25 Range/Units 11:25 16:25 20:06 Glucose (74-99) mg/dL POC Glucose (mg/dL) 151 H 135 H 189 H (70-110) mg/dL 03/11/25 03/11/25 Range/Units 06:02 07:18 Glucose 141 H (74-99) mg/dL POC Glucose (mg/dL) 144 H (70-110) mg/dL Assessment and Plan Assessment: Cardiac arrest V-fib arrest Acute systolic CHF Cardiomyopathy Cardiogenic shock Acute hypoxic respiratory failure NSTEMI Acute kidney injury, cardiorenal Acute leukocytosis, likely reactive Hypokalemia, replaced Hyperglycemia Acute transaminitis History of coronary artery disease History of diabetes mellitus Monitor vital signs Monitor CBC Monitor CMP Continue telemetry monitoring Continue oxygen supplementation Continue aspirin, Plavix, Lipitor Continue amiodarone drip Continue IV Protonix Cardiac cath done on 03/07 showed Angiographically patent with mild coronary Neumiller irregularities in LCx territory,Bioprosthetic aortic valve Cardiology planning AICD Critical care following Labs and medication were reviewed.. Continue same treatment. Continue with symptomatic treatment. Resume home medication. Monitor labs and vitals. DVT and GI prophylaxis. Further recommendations as per clinical course of the patient
[2025-03-11 16:13] LABS: Glucose,Whole Blood 113 mg/dL (70-110)
[2025-03-11 20:10] LABS: Glucose,Whole Blood 136 mg/dL (70-110)
[2025-03-12 06:03] LABS: Glucose,Whole Blood 109 mg/dL (70-110)
[2025-03-12 09:25] VITALS: TEMP 97.8
--- NOTE | 2025-03-12 09:45 | P.PN ---
Subjective HISTORY OF PRESENT ILLNESS: The patient is a 69-year-old male with a history of CAD, status post AVR, status post permanent pacemaker implantation who presented with cardiac arrest and prolonged CPR. His EKG revealed paced rhythm with underlying sinus mechanism and paced at VVI. Apparently had a V-fib arrest. The patient is not anticoagulated because of evidence of GI bleeding. Full details of prior history is unclear. He remains intubated and sedated. Underlying sinus mechanism. His troponin is elevated at 52. March 06: The patient remains intubated and sedated. In sinus mechanism with 100% ventricular pacing with complete heart block. He is off vasopressors. His urinary output has been good. His neurological status is unclear. He underwent an echocardiogram that showed an ejection fraction of 35 to 40% but it was of difficult quality and no clear segmental wall motion abnormality could be seen. He had no further episodes of ventricular tachycardia. March 07: The patient is awake and alert, extubated. He feels well, denying any dyspnea or chest discomfort. He has no dizziness or palpitations. He continues to be in sinus mechanism. Hemodynamically he is stable on no vasopressors. Reviewing his records the patient had an aortic valve replacement for bicuspid aortic valve and severe aortic regurgitation with no evidence of obstructive CAD. He has not been followed in the office for over 3 years. March 08: The patient underwent coronary angiography yesterday and had no evidence of obstructive CAD. He continues to be in sinus mechanism with 100% VVI pacing. He has soreness in the left side of the chest related to his CPR. His echocardiogram showed evidence of cardiomyopathy. He has no further episodes of ventricular tachycardia. He is scheduled to undergo ICD implantation by Dr. Garg. March 09: The patient feels well this morning, he continues to have soreness in the chest related to his CPR. He continues to be in sinus mechanism with VVI pacing. He has no dizziness or palpitations. There is no evidence of ventricular tachyarrhythmia. His urinary output is stable. He was evaluated with Dr. Garg yesterday after the venogram and the plan is to proceed with generator change at this point and later on bring him back to upgrade the device to a BiV ICD. 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 In the meantime he will be given a LifeVest. March 10: The patient had the generator change yesterday, he is DDD pacing today. He denies any chest discomfort except for the rib injury. He has no dizziness or palpitations. He is ambulating in the room without difficulties. He continues to be in sinus mechanism. There is no evidence of ventricular tachycardia. He is scheduled to receive a LifeVest. He will be readmitted in April or May to undergo placement of his upgraded wire. Medications: Amiodarone 400 mg twice a day, aspirin, insulin, Lipitor 40 mg daily, Entresto 2426 twice a day, spironolactone 25 mg daily, carvedilol 6.25 mg twice a day 03/11/2025 Patient examined this morning at the bedside. He is sitting up in the chair. Patient denies shortness of breath. He does report that his voice feels hoarse this morning. He reports some chest discomfort when he is coughing. He has been up ambulating. Patient did receive his LifeVest yesterday. 03/12 Patient seen and examined. Denies any chest pain or pressure. No significant shortness of breath. Anxious to go home. Has been walking the halls without any lightheadedness or dizziness. PHYSICAL EXAM: VITAL SIGNS: Reviewed. GENERAL: Well-developed in no acute distress. NECK: Supple. No JVD or thyromegaly LUNGS: Respirations even and unlabored. Lungs essentially clear to auscultation bilaterally. HEART: Regular rate and rhythm. S1 and S2 heard. EXTREMITIES: Normal range of motion. No clubbing or cyanosis. Peripheral pulses intact. No lower extremity edema ASSESSMENT: 1. Cardiac arrest, nonischemic cardiomyopathy 2. Status post permanent pacemaker implantation with evidence consistent with generator depletion, status post generator change 3. History of hypertension 4. Status post aortic valve replacement 5. Cardiomyopathy could be secondary to ventricular pacing PLAN: Appears stable for discharge home on current regimen. Outpatient follow-up in 1 to 2 weeks. Objective - Vital Signs Vital signs: Vital Signs Temp 97.8 F 03/12/25 09:24 Pulse 85 03/12/25 09:24 Resp 20 03/12/25 09:24 BP 127/77 03/12/25 09:24 Pulse Ox 91 L 03/12/25 09:24 FiO2 40 03/06/25 12:00 Intake & Output 03/11/25 03/12/25 03/12/25 18:59 06:59 18:59 Intake Total 40 Output Total 0 Balance 40 0 Weight 103.6 kg Intake: IV 40 Invasive Line 8 20 Invasive Line 9 20 Output: Urine 0 Other: Voiding Method Urinal Urinal ABP, PAP, CO, CI - Last Documented Arterial Blood Pressure 115/60 - Labs CBC & Chem 7: 03/08/25 02:55 03/11/25 07:18 Labs: Abnormal Lab Results - Last 24 Hours (Table) 03/11/25 03/11/25 03/11/25 Range/Units 11:36 16:12 20:09 POC Glucose (mg/dL) 150 H 113 H 136 H (70-110) mg/dL
[2025-03-12 12:12] LABS: Glucose,Whole Blood 117 mg/dL (70-110)
--- NOTE | 2025-03-12 13:20 | P.PN ---
Subjective Progress Note Date: 03/12/25 Patient is a 69-year-old male with little known past medical history. No prior records available for review. Apparently, patient had called EMS for his brother last night, when they arrived, he collapsed. Found to be in V-fib cardiac arrest. He was defibrillated 3 times, a total of 3 rounds of epineph rine were given, loaded with amiodarone, and intubated in the field. ROSC was achieved, with an estimated 20-minute downtime. At some point, patient self extubated and was reintubated in the emergency department. Chest CT angiogram done in the emergency department did not show any evidence of pulmonary emboli. Findings concerning for CHF. A bedside echo was reportedly done by Cardiology in the emergency department and unofficial reports found to have a severely low ejection fraction, around 10 to 15%. Serial troponins elevated at 1.25 and subsequently 52.1. EKG: Ventricular paced rhythm at 50 bpm. Remaining lab work including a CBC with a WBC count of 21.2, hemoglobin 15.3, platelets 161. CMP: Sodium 142, potassium 3.4, chloride 105, serum bicarb 8, BUN 11, creatinine 0.93, glucose 403. Lactic 2.7. AST 178, ALT 73, ALP 125. Abdominal ultrasound showing cholelithiasis without cholecystitis and hepatic steatosis with hepatomegaly. Repeat labs showing improvement in patient's metabolic acidosis and serum bicarb of 16. Patient has developed acute kidney injury, likely cardiorenal. Patient also noted to have maroon gastric content from his OG tube. Gastroccult was positive. Patient currently being evaluated in the intensive care unit. He remains intubated to mechanical ventilator. Most recent available chest x-ray showing the endotracheal tube above the karen, orogastric tube which should be advanced for 5 cm, patchy appearing pulmonary edema, old sternotomy wires and pacemaker generator in the left chest. Previous ABGs showing a PaO2 of 231, pCO2 of 38, pH of 7.14. Previous ventilator changes made by Dr. Mays. Repeat gases, showing improvement in patient's acid-base balance with a PaO2 of 52, pCO2 of 37, pH of 7.34. Current ventilator settings assist-co ntrol, respiratory rate 24, tidal line 450, FiO2 50%, PEEP of 10. SpO2 reading 100% on bedside monitor. He is sedated on propofol at 45 mcg/kg/min. Synchronous with current settings. Difficult to assess neurostatus due to level of sedation. Norepinephrine infusing at 0.03 mcg/kg/min. Also, amiodarone infusing at 0.5 mg/min. Patient's rhythm on bedside monitor is V-paced at 50 bpm. Previously, patient was fluid resuscitated with a total of 2.5 L of crystalloid bolus. Urine output is low less than 30 cc/h On 03/06/2025, the patient is being seen for a follow-up. This patient is postca rdiac arrest. On today's evaluation, he is on propofol running at 45 mcg/kg/min., Comfortable. Grimaces to painful stimulation. Is on assist- control mode at rate of 24, tidal volume of 450, FiO2 40% with a PEEP of 8. Blood gas showed pH of 7.47 with a [id number] and [id number]. chest x-ray remains clear. Orotracheal tube is in good location. Cardiac rhythm is paced, VVI going to the patient's pacemaker generator has run out of battery and he is on a backup VVI at rate of 50. He remains on amiodarone drip at 0.5 mg/min. He is off norepinephrine as of 9:00 yesterday. He is on normal saline at KVO. He remains on aspirin and Plavix. He remains on insulin in the form of Lantus 10 units twice daily. Afebrile. Normotensive. The WBC count is 11.9, hemoglobin 14 and platelet count of 102. Sodium is 135, potassium is 3.5, he is 20 mL creatinine of 1.2. LFTs are mildly elevated with an AST of 104 and ALT of 55. The echocardiogram was completed and the patient was found to have systolic heart failure with an ejection fraction of 35 to 40%. Valves were not adequately visualized. He remains n.p.o. for now. Cardiology is on the case. The patient will receive a sedation holiday. Will be making further planning regarding the need for cardiac catheterization within the next 24 hours. He is on Lipitor 40 mg p.o. daily. On 03/07/2025, the patient is awake and alert. The patient was extubated on 03/06/2025 and the patient is currently on oxygen at 3 L/min nasal cannula. The patient is currently off pressors. Amiodarone still running at 0.5 mg/min. He is VVI paced at the rate of 50. Awake and alert and communicating. Denies having any significant respiratory distress. Denies having any chest pain. Adequate urine output. The white second 11.1 with a heme of 4.8 and a platelet count of 98. BUN is 19 with a creatinine of 1.09 and sodium levels at 135. The patient is awaiting a cardiac catheterization. Remains on aspirin and Plavix. Remains on Lantus insulin 10 units twice daily and NovoLog sliding scale coverage. Remains on IV amiodarone. On 03/08/25, the patient is awake and alert and denies having any specific complaints. Currently on 2 L of O2 by nasal cannula. He underwent a cardiac catheterization yesterday and the patient was found to have nonocclusive disease and no intervention has been done. Plavix has been discontinued and the patient is currently on aspirin. IV amiodarone has been discontinued and the patient is currently on oral amiodarone, 400 mg p.o. twice a day. The patient is also started on metoprolol 25 mg p.o. twice daily. Noted the patient is in a paced rhythm, VVI mode at rate of 50. No other new complaints otherwise for now. No chest pain. No shortness of breath. The white cell count is 9.6 with a hemoglobin 12.7 and a platelet count of 107. BUN is 18 with a creatinine of 0.8 and a sodium level is 137. Adequate urine output. There will patient is being followed up by cardiology. The plan is to insert a new pacemaker generator is the current generator is running of a very low battery. Remains on normal vic ine at rate of 50 cc an hour. On 03/09/2025, the patient is being seen in the intensive care unit. He is calm and comfortable and he denies having any significant respiratory distress. The plan is to replace the pacemaker generator today and the wires will be replaced at a later stage. Based on that, the patient will be taken to the [facility] for this procedure. Otherwise, he is doing well. Is on 3 L of oxygen by nasal cannula. IV fluids are currently at 50 cc an hour normal saline. Remains on Toprol-XL 25 mg p.o. daily and Cozaar 25 mg p.o. daily and the patient is also on amiodarone 4 mg p.o. twice a day. No fever. No chills. Given empiric antibiotic coverage and in preparation for pacemaker generator replacement. BUN is 18 with a creatinine 0.8. Sodium level is 138. No focal neurological deficits. Moving all 4 extremities without any limitation. On 03/10/2025, the patient is being seen for a follow-up. The patient had undergone a replacement of the pacemaker generator. The pacemaker wires will be replaced at a later stage. Doing well with no specific complaints. No complication post procedure. Oxygenation remained stable and the patient is currently on room air oxygen with a pulse ox of 92 to 93%. No significant cough or sputum production. No chest tightness or wheezing. Sodium is at 139, BUN 30 with a creatinine of 0.7. Remains on amiodarone 4 mg p.o. twice a day. Remains on Coreg 12.5 mg twice daily and Entresto 24/25 1 tab a day and Aldactone 25 mg p.o. daily. He is on Lantus insulin 10 units twice daily and a sliding scale insulin coverage. Remains on aspirin. No complaints otherwise for now. On 03/11/2025, the patient is stable. The pacemaker battery has been replaced. The generator will be replaced at a later stage. Doing well. He is currently DDD paced and the patient has no significant bradycardia. No chest pain. No shortness of breath. Farxiga was added to his regimen and the patient remains on a combination of Coreg and Entresto. He is also on Aldactone. He is currently on room air oxygen. Electrolytes are all within normal limits. No cardiac arrhythmias have been noted. The patient is seen today March 12, 2025 and follow-up on the selective care unit. He is currently awake and alert in no acute distress. Sitting up in a chair at the bedside. Maintaining good O2 saturations in the 90s on room air oxygen. LifeVest is in place. Left arm sling in place for recent generator change for his permanent pacemaker. Unable to receive a biventricular AICD this admission due to subclavian stenosis. Glucose 117. He remains on amiodarone, Coreg, Farxiga, Entresto, Aldactone. Continued on Lantus and Humalog sliding scale. Remains on aspirin. Objective - Vital Signs Vital signs: Vital Signs Temp 97.8 F 03/12/25 09:24 Pulse 85 03/12/25 09:24 Resp 20 03/12/25 09:24 BP 127/77 03/12/25 09:24 Pulse Ox 91 L 03/12/25 09:24 FiO2 40 03/06/25 12:00 Intake & Output 03/11/25 03/12/25 03/12/25 18:59 06:59 18:59 Intake Total 40 20 Output Total 0 Balance 40 0 20 Weight 103.6 kg Intake: IV 40 20 Invasive Line 8 20 10 Invasive Line 9 20 10 Output: Urine 0 Other: Voiding Method Urinal Urinal Urinal ABP, PAP, CO, CI - Last Documented Arterial Blood Pressure 115/60 - Exam GENERAL EXAM: Alert, active, pleasant 69-year-old male, on room air oxygen, fair comfortable in no apparent distress. HEAD: Normocephalic. EYES: Normal reaction of pupils, equal size. NOSE: Clear with pink turbinates. THROAT: No erythema or exudates. NECK: No masses, no JVD. CHEST: LifeVest in place. Dressing to left subclavian site clean and dry LUNGS: Equal air entry with no crackles, wheeze, rhonchi or dullness. CVS: S1 and S2 normal with no audible murmur, regular rhythm. ABDOMEN: No hepatosplenomegaly, normal bowel sounds, no guarding or rigidity. SPINE: No scoliosis or deformity SKIN: No rashes CENTRAL NERVOUS SYSTEM: No focal deficits, tone is normal in all 4 extremities. EXTREMITIES: Left upper extremity in a sling. There is no peripheral edema. No clubbing, no cyanosis. Peripheral pulses are intact. - Labs CBC & Chem 7: 03/08/25 02:55 03/11/25 07:18 Labs: Abnormal Lab Results - Last 24 Hours (Table) 03/11/25 03/11/25 03/12/25 Range/Units 16:12 20:09 12:06 POC Glucose (mg/dL) 113 H 136 H 117 H (70-110) mg/dL Assessment and Plan Assessment: [id number], witnessed cardiac arrest, presenting rhythm was ventricular fibrillation with prolonged downtime estimated at 20 minutes per ER documentation. The patient was extubated on 03/06/2025 and the patient is currently awake and alert and communicating. Hemodynamically stable on no pressors. Cardiac catheterization was completed on 03/07/2025 and the patient was found to have non occlusive disease. Coronary artery disease post acute NSTEMI. Currently on aspirin and Coreg 12.5 mg p.o. twice a day. Systolic heart failure with an ejection fraction of 35%. Valvular function could not be assessed on echocardiogram. LifeVest in place Acute hypoxemic respiratory failure, secondary to cardiac arrest. Patient is extubated and the patient is currently on room air oxygen Hypotension and shock, possibly cardiogenic, improved and the patient is curren tly off pressors, hemodynamically stable at this point Anion gap metabolic acidosis, recovered Acute kidney injury, cardiorenal, improved History of diabetes mellitus, with hyperglycemia, currently on Lantus insulin 10 units twice daily and sliding scale coverage. Acute leukocytosis, likely reactive, improved Hypokalemia, replaced GI bleed, with maroon gastric content in the NG tube. Currently extubated the patient has no NG tube in place and the patient is not showing any signs of uppe r and lower GI bleeding. History of open heart surgery, possibly a valve surgery History of permanent pacemaker, currently ventricularly paced rhythm, the pacemaker generator battery is low and had to be replaced approximately 2 years ago. The pacemaker generator was replaced and a biventricular AICD will be done at a later stage Plan: The patient was seen and evaluated Chest x-ray, labs and medications reviewed Currently stable and on room air oxygen Hemodynamically stable Amiodarone 400 mg p.o. twice a day Chest CT angiogram did not show evidence of pulmonary embolism Cardiac catheterization revealed non occlusive disease Pacemaker generator battery has been replaced. The patient will be upgraded at a later stage to a Bi-V AICD Meanwhile, he was provided a LifeVest Continue aspirin Continue Coreg Continue Farxiga Continue Aldactone Continue Entresto Continue Lipitor Continue Lantus insulin Cleared for discharge home to be followed up by cardiology I have personally seen and examined the patient, performed the documentation and the assessment and plan as written. Number of minutes spent on the visit: 10 Dictation was produced using [employer] dictation software. Please excuse any grammatical, word or spelling errors.
[2025-03-12 16:52] VITALS: BP 130/89; PULSE 78; RESP 18
--- NOTE | 2025-03-13 00:40 | P.DS ---
Providers Date of admission: 03/04/25 13:14 Attending physician: Ashley Beltran Consults: 03/04/25 13:14 Consult Physician Stat Consulting Provider: [facility] Consult Reason/Comments: Cardiac arrest Do you want consulting provider notified?: Yes Consult Physician Urgent Consulting Provider: Kael Mays Consult Reason/Comments: Critical care management Do you want consulting provider notified?: Yes Primary care physician: Kati Harrison Hospital Course: Diagnoses: Cardiac arrest V-fib arrest Acute systolic CHF Cardiomyopathy Cardiogenic shock Acute hypoxic respiratory failure NSTEMI Acute kidney injury, cardiorenal Acute leukocytosis, likely reactive Hypokalemia, replaced Hyperglycemia Acute transaminitis History of coronary artery disease History of diabetes mellitus Hospital course: 69-year-old gentleman with past medical history significant for coronary artery disease who presented to the ER after having a witnessed cardiac arrest. Patient was evaluated by cardiology and pulmonary team. Patient with diagnosis of nonischemic cardiomyopathy. His ejection fraction is 35 to 40% CTA of the chest was checked was negative for PE but showing moderate emphysematous changes and cholelithiasis. Ultrasound showing hepatic steatosis. CT of the head and neck were unremarkable. Patient continued to improve slowly and gradually. Currently getting better close to baseline. Patient denies any other new complaints. He is eager to go home. No headache or dizziness no GI bleed. Stool looks dark brown as per patient Patient feels he can go home today actually he told me he can go home now. No other signs symptom Life vest is on the and patient is wearing it. Patient was cleared for discharge by both cardiology and pulmonary teams, this was confirmed with bedside nurse Problems and management plan were discussed with the patient and he verbalized understanding and acceptance Patient was found stable and can be discharged home in guarded prognosis however he needs follow-up as an outpatient. Patient was instructed to follow up with PCP within one week and patient agrees Patient is bisected to follow-up with straight truck driver Dr. Chaudhry in 1 week after discharge and he agrees And to follow-up with management accountant Dr. Mays in 2 weeks and he agrees. Also referred to ground instructor basic Dr. Jason Physical exam Gen: patient is a AAOx3, no distress CVS: S1-S2, RRR, no murmur Lungs: B/L CTA, no wheezing Abdomen: soft, no distention, no tenderness, positive bowel sounds Extremity: no leg edema or induration Time spent more than 35 minutes History is limited and most of is obtained from the EMR. Apparently patient had called EMS for his brother who had fallen, when EMS came patient collapsed while helping his brother and EMS. EMS started working on the patient and found him to be in V-fib, CPR was initiated, patient was intubated and received 3 rounds of epi, patient also shocked 3 times. Patient was down for at least 20 minutes before the return of ROSC. En route to ER, patient self extubated but patient was later intubated again by ER physician EKG done in the ER showed heart rate of , no ST segment elevation or depression seen, no T-wave inversions seen. Chest x-ray done in the ER ET tube 5.3 cm above the karen, no acute pulmonary process CT head done showed no acute intracranial process CT cervical spine done showed no acute fracture CTA chest done showed no evidence of pneumonia, cholelithiasis seen. 03/10/2025 Patient is seen and evaluated resting comfortably in bed; denies any specific complaints -Patient underwent permanent pacemaker generator change Cardiology recommend to increase Coreg; increase physical activity -LifeVest Plan for possible discharge in next 24 hours 03/11/2025 Patient is seen and evaluated resting in bed; has been reevaluated by cardiology with possible plan for discharge possibly tomorrow Vital signs are reviewed and stable Patient remains on amiodarone, aspirin, Lipitor, Coreg, Entresto and Aldactone -Cardiology recommending to add Farxiga - Patient to be monitored on current medications for another 24 hours prior to discharge Plan - Discharge Summary New Discharge Prescriptions: New Amiodarone [Cordarone] 400 mg PO DAILY #90 tablet carvediloL [Coreg*] 12.5 mg PO BID #180 tablet Spironolactone 25 mg PO DAILY #90 tablet Atorvastatin [Lipitor] 40 mg PO DAILY #30 tab Losartan [Cozaar] 25 mg PO DAILY #30 tab Dapagliflozin Propanediol [Farxiga] 10 mg PO DAILY #30 tab Omeprazole [PriLOSEC] 20 mg PO AC-BID #60 cap Insulin Glargine,Hum.rec.anlog [Lantus Solostar Pen] 9 units SQ DAILY #6 each Pen Needle, Diabetic [Pen Needle] 1 each MC DAILY 30 Days #30 each Continue Aspirin 81 mg PO DAILY EPINEPHrine (Auto Inject) [Epipen] 0.3 mg IM ONCE PRN #2 syringe PRN Reason: Difficulty breathing Discontinued amLODIPine BESYLATE [Norvasc] 10 mg PO DAILY cloNIDine HCL [Catapres] 0.1 mg PO DAILY lisinopriL [Zestril] 20 mg PO DAILY predniSONE [Deltasone] 40 mg PO DAILY #8 tab lisinopriL [Zestril] 10 mg PO DAILY amLODIPine [Norvasc] 10 mg PO DAILY Atorvastatin [Lipitor] 20 mg PO DAILY Discharge Medication List Aspirin 81 mg PO DAILY 12/29/13 [History] EPINEPHrine (Auto Inject) [Epipen] 0.3 mg IM ONCE PRN #2 syringe 04/18/19 [Rx] Amiodarone [Cordarone] 400 mg PO DAILY #90 tablet 03/09/25 [Rx] Spironolactone 25 mg PO DAILY #90 tablet 03/09/25 [Rx] carvediloL [Coreg*] 12.5 mg PO BID #180 tablet 03/09/25 [Rx] Atorvastatin [Lipitor] 40 mg PO DAILY #30 tab 03/12/25 [Rx] Dapagliflozin Propanediol [Farxiga] 10 mg PO DAILY #30 tab 03/12/25 [Rx] Insulin Glargine,Hum.rec.anlog [Lantus Solostar Pen] 9 units SQ DAILY #6 each 03/12/25 [Rx] Losartan [Cozaar] 25 mg PO DAILY #30 tab 03/12/25 [Rx] Omeprazole [PriLOSEC] 20 mg PO AC-BID #60 cap 03/12/25 [Rx] Pen Needle, Diabetic [Pen Needle] 1 each MC DAILY 30 Days #30 each 03/12/25 [Rx] Follow up Appointment(s)/Referral(s): Roberta Chaudhry MD [STAFF PHYSICIAN] - 1 Week (Follow up: WednesdayMarch 23 at 1:15 PM - this is a straight truck driver appointment Device follow up: March 22 at 4PM) Jasen Jason MD [REFERRING] - 1 Week (Please call to schedule after seeing Dr. Harrison) Kael Mays DO [Doctor of Osteopathic Medicine] - 2 Weeks () Kati Harrison MD [Primary Care Provider] - 03/15/25 11:15 am Patient Instructions/Handouts: Heart Healthy Diet (GEN), Pacemaker (GEN) Activity/Diet/Wound Care/Special Instructions: PATIENT EDUCATION MATERIAL Instructions following a heart rhythm device implant. 1. Keep dressing DRY for 5 DAYS. You may cover the area with Saran or Cling Wrap, prior to a shower. 2. The dressing will be removed in the Device Clinic at [facility]. Absorbable sutures were used to close the wound. 3. Avoid raising the left arm above the shoulder level. 4 week restriction 4. Avoid arm movements, like backscratching, rubbing the head, or pulling on a cord. 4 weeks restriction 5. Gentle range of motion movements of the shoulder, closest to the incision should be performed to avoid a frozen shoulder. (Pendulum exercises of the shoulder) 6. The opposite arm may be used freely. 7. Avoid driving for 7 days. 8. Avoid activities such as golfing, swimming, weed whacking, lifting more than 10 pounds weight, bowling, gymnastics and weight training/lifting. (6 weeks restriction) 9. Activities such as wood chopping with an axe, pull-ups in the gymnasium, power lifting, arc-welding, being close to home induction cooktops will always be a problem. 10. Arm sling is only a reminder not to raise the arm above the head. You do not need to keep the arm completely immobilized. Your free to move the arm and use it and for normal activities. In case of any problems, please call [facility], Doug Olvera, @ [phone], Attention: Device Clinic Device clinic follow-up in 5 days Follow-up with primary straight truck driver in 2-3 months Discontinue clonidine Discontinue amlodipine Discontinue lisinopril Heart healthy low carbohydrate 1800 kcal/day Activity is restricted till you see your doctor We recommend to check your glucose 4 times a day before each meal and at bedtime, keep the results in a log book and bring it to your doctor on your appointment date. If your glucose less than 70 or more than 400 then call 911 or come to emergency room Discharge Disposition: HOME SELF-CARE
== END 2025-03-12 16:49 | disposition home or self-care (01) | DRG 258 ==
LOC: EC 11:16 → MERGE 13:14 → 2SICU 13:14 → 3SCARD 03-09 11:16
PROVIDERS: ADMIT Hospitalist; ATTEND Hospitalist
PROC: 0BH18EZ Insertion of Endotracheal Airway into Trachea, Via Natural or Artificial Opening Endoscopic (ICD-10-PCS; principal; 2025-03-04)
PROC: 5A1945Z Respiratory Ventilation, 24-96 Consecutive Hours (ICD-10-PCS; 2025-03-04)
PROC: 03HY32Z Insertion of Monitoring Device into Upper Artery, Percutaneous Approach (ICD-10-PCS; 2025-03-05)
PROC: 4A133B1 Monitoring of Arterial Pressure, Peripheral, Percutaneous Approach (ICD-10-PCS; 2025-03-05)
PROC: 4A133J1 Monitoring of Arterial Pulse, Peripheral, Percutaneous Approach (ICD-10-PCS; 2025-03-05)
PROC: 02HV33Z Insertion of Infusion Device into Superior Vena Cava, Percutaneous Approach (ICD-10-PCS; 2025-03-05)
PROC: 4A023N7 Measurement of Cardiac Sampling and Pressure, Left Heart, Percutaneous Approach (ICD-10-PCS; 2025-03-07)
PROC: B2111ZZ Fluoroscopy of Multiple Coronary Arteries using Low Osmolar Contrast (ICD-10-PCS; 2025-03-07)
PROC: 0JH606Z Insertion of Pacemaker, Dual Chamber into Chest Subcutaneous Tissue and Fascia, Open Approach (ICD-10-PCS; 2025-03-09)
PROC: 0JPT0PZ Removal of Cardiac Rhythm Related Device from Trunk Subcutaneous Tissue and Fascia, Open Approach (ICD-10-PCS; 2025-03-09)
PROC: B51N1ZZ Fluoroscopy of Left Upper Extremity Veins using Low Osmolar Contrast (ICD-10-PCS; 2025-03-09)
DX: I21.4 Non-ST elevation (NSTEMI) myocardial infarction (principal); I46.2 Cardiac arrest due to underlying cardiac condition; K72.00 Acute and subacute hepatic failure without coma; I49.01 Ventricular fibrillation; J96.01 Acute respiratory failure with hypoxia; I50.21 Acute systolic (congestive) heart failure; G93.1 Anoxic brain damage, not elsewhere classified; K92.2 Gastrointestinal hemorrhage, unspecified; E11.65 Type 2 diabetes mellitus with hyperglycemia; I11.0 Hypertensive heart disease with heart failure; K76.0 Fatty (change of) liver, not elsewhere classified; E66.9 Obesity, unspecified; I70.8 Atherosclerosis of other arteries; Z95.3 Presence of xenogenic heart valve; I42.8 Other cardiomyopathies; I47.20 Ventricular tachycardia, unspecified; I44.2 Atrioventricular block, complete; E87.20 Acidosis, unspecified; N17.9 Acute kidney failure, unspecified; I87.1 Compression of vein; D72.828 Other elevated white blood cell count; I25.10 Atherosclerotic heart disease of native coronary artery without angina pectoris; E87.6 Hypokalemia; K80.20 Calculus of gallbladder without cholecystitis without obstruction; E78.5 Hyperlipidemia, unspecified; R19.5 Other fecal abnormalities; I25.5 Ischemic cardiomyopathy; R00.1 Bradycardia, unspecified; Z95.1 Presence of aortocoronary bypass graft; Z79.82 Long term (current) use of aspirin; Z79.899 Other long term (current) drug therapy; Z79.52 Long term (current) use of systemic steroids; Z91.198 Patient's noncompliance with other medical treatment and regimen for other reason; Z45.018 Encounter for adjustment and management of other part of cardiac pacemaker; Z87.891 Personal history of nicotine dependence; Z87.74 Personal history of (corrected) congenital malformations of heart and circulatory system; Z68.31 Body mass index [BMI] 31.0-31.9, adult
CPT/HCPCS: 33228; 36005; 36415; 36600; 70450; 71045; 71275; 72125; 75820; 76705; 80048; 80053; 80061; 80076; 81001; 81003; 82271; 82805; 83036; 83605; 83735; 83880; 84132; 84443; 84484; 85025; 85610; 85730; 87070; 87205; 93005; 93306; 93458; 94002; 94003; 94760; 96361; 96374; 96375; 99291